=== PATIENT | male | born 1945 | race African-American/Black ===

== ENCOUNTER 2017-03-08 18:20 | Inpatient (IN) | payer MEDICARE, MEDICAID ==
[~2017-03-08] VITALS: Ht 170.2 cm; Wt 104.0 kg
[2017-03-08 19:05] LABS: BASO % 1 % (0-3); EOS # 0.2 x10^3/uL (0.0-0.7); EOS % 5 % (0-3); LYMPH % 20 % (24-48); MEAN CORPUSCULAR HEMOGLOBIN 32 pg (25-35); MEAN CORPUSCULAR HGB CONC 33 g/dL (31-37); MEAN CORPUSCULAR VOLUME 95 fL (79-100); MONO # 0.5 x10^3/uL (0.0-1.1); MONO % 10 % (0-9); NEUT # 3.4 x10^3uL (1.8-7.7); NEUT % 65 % (31-73); PLATELET COUNT 217 x10^3/uL (140-400); RED BLOOD COUNT 5.07 x10^6/uL (4.30-5.70); RED CELL DISTRIBUTION WIDTH 15.8 % (11.5-14.5); WHITE BLOOD COUNT 5.2 x10^3/uL (4.0-11.0)
[2017-03-08 19:12] LABS: ALBUMIN 3.9 g/dL (3.4-5.0); ALBUMIN/GLOBULIN RATIO 1.2 (1.0-1.7); CALCIUM 9.1 mg/dL (8.5-10.1); GFR 89.6; MAGNESIUM 2.1 mg/dL (1.8-2.4); TOTAL BILIRUBIN 0.3 mg/dL (0.2-1.0); TOTAL PROTEIN 7.2 g/dL (6.4-8.2)
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
[2017-03-08 20:07] LABS: BILIRUBIN,URINE NEG (NEG); CLARITY,URINE CLEAR; COLOR,URINE YELLOW; GLUCOSE,URINE NEG (NEG); NITRITE,URINE NEG (NEG); UROBILINOGEN,URINE 0.2 mg/dL (0.2 mg/dL)
[2017-03-08 20:08] LABS: BACTERIA,URINE 0 /HPF (0-FEW); SQUAMOUS EPITHELIAL CELL,UR FEW /LPF
[2017-03-08] MEDS ORDERED: ACETAMINOPHEN 325 MG TABLET PO PRN (21:45)
[2017-03-08] MEDS ORDERED: METHYL SALICYLATE/MENTHOL TOPICAL OINTMENT 29GM TUBE. TP PRN (21:45)
[2017-03-08] MEDS ORDERED: MAG HYDROX/AL HYDROX/SIMETH 30 ML ORAL.SUSP PO PRN (21:45)
[2017-03-08] MEDS ORDERED: MAGNESIUM HYDROXIDE 2,400 MG/30 ML ORAL.SUSP. PO PRN (21:45)
[2017-03-08 22:04] VITALS: BP 150/74
[2017-03-08] MEDS ORDERED: LEVE500T6 PO (22:21)
[2017-03-08] MEDS ORDERED: INSU100I13 SQ (22:21)
[2017-03-08] MEDS ORDERED: METO25TA4 PO (22:21)
[2017-03-08] MEDS ORDERED: MULT-460 PO (22:21)
[2017-03-08] MEDS ORDERED: BUPR100T8 PO (22:21)
[2017-03-08] MEDS ORDERED: OMEP20CA9 PO (22:21)
[2017-03-08] MEDS ORDERED: BUSP5TAB PO (22:21)
[2017-03-08] MEDS ORDERED: CHOL10003 PO (22:21)
[2017-03-08] MEDS ORDERED: MODA100T2 PO (22:21)
[2017-03-08] MEDS ORDERED: FLUT16SP21 NS (22:21)
[2017-03-08] MEDS ORDERED: DOCU100C28 PO (22:21)
[2017-03-08] MEDS ORDERED: PRIM50TA PO (22:30)
[2017-03-08] MEDS ORDERED: OLAN2.5T3 PO (22:30)
[2017-03-08] MEDS ORDERED: polyethylene glycol PO (22:30)
[2017-03-08] MEDS ORDERED: SENN-79 PO (22:30)
[2017-03-08] MEDS: SENNOSIDES 8.6 MG TABLET PO SCH (23:23)
[2017-03-08] MEDS: busPIRone 5 MG TABLET. PO SCH (23:23)
[2017-03-08] MEDS: levETIRAcetam 500 MG TABLET PO SCH (23:23)
[2017-03-08] MEDS: OLANZapine 2.5 MG TABLET PO SCH (23:23)
[2017-03-08] MEDS: METOPROLOL TART IMMED RELEASE 25 MG TABLET PO SCH (23:24)
[2017-03-08] MEDS: PRIMIDONE 50 MG TABLET PO SCH (23:24)
[2017-03-08] MEDS: FLUTICASONE 50MCG/NASAL SPRAY 16GM BOTTLE. NS SCH (23:24)
[2017-03-08] MEDS: DOCUSATE SODIUM 100 MG CAPSULE PO SCH (23:24)
[2017-03-08] MEDS: INSULIN DETEMIR 300 UNITS/3 ML INSULN.PEN. SQ SCH (23:28)
--- NOTE | 2017-03-09 00:15 | EKG ---
[address] [address] Test Date: 2017-03-08 Test Time: 18:50:12 Pat Name: ISABELLA HUTCHINSON Department: Room: [address] [place] [address] Gender: M [employer]: : 1945 Requested By: CHAR ROBISON Order Number: [id number] Reading MD: Boy Gutierrez Measurements Intervals [place] Rate: 79 P: 34 NM: 170 QRS: -117 QRSD: 90 T: 13 QT: 366 QTc: 421 Interpretive Statements SINUS RHYTHM ABNORMAL RIGHT SUPERIOR AXIS DEVIATION R-S TRANSITION ZONE IN V LEADS DISPLACED TO THE LEFT S1,S2,S3 PATTERN LEFT ANTERIOR FASCICULAR BLOCK Electronically Signed On 03-13-2017 14:30:33 CDT by Boy Gutierrez
--- NOTE | 2017-03-09 01:37 | ACF ---
Admission Criteria Forms PSYCHIATRIC DISORDERS Clinical Indications for Inpatient Care (Place 'X' for any and all applicable criteria): Ongoing inpatient care may be needed for 1 or more of the following(1)(2)(3)(4)( 6)(7)(8): [X]I. Danger to self or others not manageable at lower level of care. [ ]II. Grave disability (eg, inability to perform self care necessary at lower level of care) [ ]III. Agitation or inappropriate behavior interfering with care for primary condition (eg, attempting to discontinue lines or drains prematurely, unable to cooperate with respiratory care) [ ]IV. Severe disability or disorder indicated by ALL of the following: [ ]a) Severe behavioral health disorder-related symptoms or condition indicated by 1 or more of the following: [ ]i) Severe problem with cognition, memory, judgment, or impulse control [ ]ii) Severe clinical manifestations (eg, hallucinations, delusions, other acute psychotic symptoms, oj, extreme agitation or anxiety) [ ]b) Patient management at lower level of care is not feasible until acute intervention or modification is initiated. Extended stay beyond goal length of stay for the primary condition may be needed untilALLof the following are present(1)(2)(3)(4)7)07)(23): [ ]a) Danger to self or others is absent or manageable at lower level of care [ ]b) Behavior crisis management, including physical or chemical restraints, is required and is not available at a lower level of care. [ ]c) Behavioral symptoms (e.g., agitation, somnolence, inappropriate behavior) are present, and are not manageable at a lower level of care. [ ]d) Patient cannot understand follow-up treatment and crisis plan. [ ]e) Provider and supports are sufficiently available at lower level of care. [ ]f) Patient can participate (e.g., verify absence of plan for harm) and is in needed of monitoring. The original [facility] [employer] content created by [facility] [employer] has been revised. The portions of the content which have been revised are identified through the use of italic text, and [facility] [employer] has neither reviewed nor approved the modified material. All other unmodified content is copyright [facility]. Please see references footnoted in the original [facility] edition 2015 Admission Criteria Met?: Yes CLAU BERNAL Mar 09, 2017 01:37
[2017-03-09 06:20] VITALS: BP 113/70
[2017-03-09] MEDS: levETIRAcetam 500 MG TABLET PO SCH ×2 (09:50→19:38)
[2017-03-09] MEDS: busPIRone 5 MG TABLET. PO SCH ×2 (09:50→19:38)
[2017-03-09] MEDS: SENNOSIDES 8.6 MG TABLET PO SCH ×2 (09:50→19:45)
[2017-03-09] MEDS: PRIMIDONE 50 MG TABLET PO SCH ×2 (09:50→19:45)
[2017-03-09] MEDS: DOCUSATE SODIUM 100 MG CAPSULE PO SCH ×2 (09:50→19:38)
[2017-03-09] MEDS: OLANZapine 2.5 MG TABLET PO SCH ×2 (09:51→19:38)
[2017-03-09] MEDS: METOPROLOL TART IMMED RELEASE 25 MG TABLET PO SCH ×2 (09:51→19:38)
[2017-03-09] MEDS: MULTIVITAMIN with MINERAL TABLET. PO SCH (10:13)
[2017-03-09] MEDS: buPROPion SR 100 MG TABLET.SA. PO SCH (10:13)
[2017-03-09] MEDS: CHOLECALCIFEROL (VITAMIN D3) 1,000 UNIT TABLET PO SCH (10:13)
[2017-03-09] MEDS: PANTOPRAZOLE 40 MG TABLET. PO SCH (10:13)
[2017-03-09] MEDS: MODAFINIL 100 MG TABLET PO SCH (10:13)
[2017-03-09] MEDS: POLYETHYLENE GLYCOL 3350 17 GM PACKET. PO SCH (10:14)
[2017-03-09] MEDS: FLUTICASONE 50MCG/NASAL SPRAY 16GM BOTTLE. NS SCH ×2 (10:17→19:44)
[2017-03-09 14:34] LABS: THYROID STIM HORMONE (TSH) 1.846 uIU/mL (0.358-3.740)
[2017-03-09 16:17] VITALS: BP 122/75
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
[2017-03-09] MEDS: INSULIN DETEMIR 300 UNITS/3 ML INSULN.PEN. SQ SCH (19:46)
[2017-03-09 20:08] LABS: T3 TOTAL 122 ng/dL (71-180); THYROXINE 6.6 ug/dL (4.5-12.0)
--- NOTE | 2017-03-09 20:45 | PDOC ---
Exam Trey Demential Exam: Trey Note: Please also refer to the separate dictated note~for this date of service dictated separately.~Patient seen individually. Discussed the patient with Nursing staff reviewed the chart.~Reviewed interim history and current functioning. Reviewed vital signs,~Labs/ Radiology~and current medications noted below. Continue current treatment with the changes noted in the dictated addendum note Assessment: Vital Signs: Vital Signs Date Time Temp Pulse Resp B/P (MAP) Pulse Ox O2 Delivery O2 Flow Rate FiO2 03/09/17 19:38 72 122/75 03/09/17 16:17 98.2 18 95 03/08/17 18:20 Room Air I&O Intake and Output 03/09/17 07:00 Output Total 2 ml Balance -2 ml Output Urine Total 2 ml # Bowel Movements 1 Labs: Laboratory Tests Test 03/08/17 22:35 03/09/17 07:52 03/09/17 11:58 03/09/17 16:33 Glucose (Fingerstick) 100 mg/dL (70-99) H 87 mg/dL (70-99) 147 mg/dL (70-99) H 137 mg/dL (70-99) H Test 03/09/17 18:59 Glucose (Fingerstick) 120 mg/dL (70-99) H Current Medications: Meds: Current Medications Acetaminophen (Tylenol) 650 mg PRN Q6HRS PRN PO PAIN / TEMP; Start 03/08/17 at 21:45 Multi-Ingredient Ointment (Analgesic [place]) 1 fabrizio PRN QID PRN TP MUSCLE PAIN; Start 03/08/17 at 21:45 Al Hydroxide/Mg Hydroxide (Mylanta Plus Xs) 15 ml PRN AFTMEALHC PRN PO DYSPEPSIA; Start 03/08/17 at 21:45 Magnesium Hydroxide (Milk Of Magnesia) 2,400 mg PRN QHS PRN PO CONSTIPATION; Start 03/08/17 at 21:45 Bupropion HCl (Wellbutrin Sr) 100 mg DAILY PO Last administered on 03/09/17 10 :13; Start 03/09/17 at 09:00 Buspirone HCl (Buspar) 5 mg BID PO Last administered on 03/09/17 19:38; Start 03/08/17 at 23:00 Olanzapine (ZyPREXA) 2.5 mg BID PO Last administered on 03/09/17 19:38; Start 03/08/17 at 23:00 Docusate Sodium (Colace) 100 mg BID PO Last administered on 03/09/17 19:38; Start 03/08/17 at 23:00 Fluticasone Propionate (Flonase) 1 spray BID NS Last administered on 03/09/17 19:44; Start 03/08/17 at 23:00 Levetiracetam (Keppra) 1,000 mg BID PO Last administered on 03/09/17 19:38; Start 03/08/17 at 23:00 Metoprolol Tartrate (Lopressor) 25 mg BID PO Last administered on 03/09/17 19: 38; Start 03/08/17 at 23:00 Primidone (Mysoline) 150 mg BID PO Last administered on 03/09/17 19:45; Start 03/08/17 at 23:00 Sennosides (Senna) 8.6 mg BID PO Last administered on 03/09/17 19:45; Start at 23:00 Insulin Detemir (Levemir) 5 units QHS SQ Last administered on 03/09/17 19:46; Start 03/08/17 at 23:00 Vitamin D (Vitamin D3) 1,000 unit DAILY PO Last administered on 03/09/17 10:13 ; Start 03/09/17 at 09:00 Modafinil (Provigil) 100 mg DAILY PO Last administered on 03/09/17 10:13; Start 03/09/17 at 09:00 Multivitamins/ Calcium (Thera-M Plus) 1 tab DAILY PO Last administered on 10:13; Start 03/09/17 at 09:00 Pantoprazole Sodium (Protonix) 40 mg DAILYAC PO Last administered on 03/09/17 10:13; Start 03/09/17 at 08:45 Polyethylene Glycol (miraLAX) 17 gm DAILY PO Last administered on 03/09/17 10: 14; Start 03/09/17 at 09:00 Active Scripts Active Reported Zyprexa (Olanzapine) 2.5 Mg Tablet 2.5 Mg PO BID Senna (Sennosides) 8.6 Mg Tablet 8.6 Mg PO BID Primidone 50 Mg Tablet 150 Mg PO BID [polyethylene glycol] 17 Gm PO DAILY Omeprazole 20 Mg Capsule.dr 20 Mg PO DAILY Multiple Vitamin (Multivitamin With Minerals) 1 Each Tablet 1 Tab PO DAILY Modafinil 100 Mg Tablet 100 Mg PO DAILY Metoprolol Tartrate 25 Mg Tablet 25 Mg PO BID Levetiracetam 500 Mg Tablet 1,000 Mg PO BID Lantus Solostar (Insulin Glargine,Hum.rec.anlog) 100 Unit/1 Ml Insuln.pen 5 Unit SQ HS Fluticasone Propionate Nasal [place] (Fluticasone Propionate) 16 Gm [place].susp 1 [place] NS BID Docusate Sodium 100 Mg Capsule 100 Mg PO BID Vitamin D3 (Cholecalciferol (Vitamin D3)) 1,000 Unit Tablet 1,000 Unit PO DAILY Buspirone Hcl 5 Mg Tablet 5 Mg PO BID Bupropion Hcl Sr (Bupropion Hcl) 100 Mg Tablet.er 100 Mg PO DAILY Diagnosis: Problems: (1) Dementia with behavioral disturbance AYAKA FERNANDEZ MD Mar 09, 2017 20:45
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
[2017-03-10 04:12] LABS: HEMOGLOBIN A1C 5.3 % (4.8-5.6)
[2017-03-10 06:06] VITALS: BP 127/72
[2017-03-10] MEDS: MODAFINIL 100 MG TABLET PO SCH (09:16)
[2017-03-10] MEDS: OLANZapine 2.5 MG TABLET PO SCH ×2 (09:16→19:50)
[2017-03-10] MEDS: buPROPion SR 100 MG TABLET.SA. PO SCH (09:16)
[2017-03-10] MEDS: POLYETHYLENE GLYCOL 3350 17 GM PACKET. PO SCH (09:16)
[2017-03-10] MEDS: SENNOSIDES 8.6 MG TABLET PO SCH ×2 (09:16→19:50)
[2017-03-10] MEDS: PRIMIDONE 50 MG TABLET PO SCH ×2 (09:16→19:49)
[2017-03-10] MEDS: MULTIVITAMIN with MINERAL TABLET. PO SCH (09:16)
[2017-03-10] MEDS: DOCUSATE SODIUM 100 MG CAPSULE PO SCH ×2 (09:16→20:04)
[2017-03-10] MEDS: levETIRAcetam 500 MG TABLET PO SCH ×2 (09:17→19:50)
[2017-03-10] MEDS: METOPROLOL TART IMMED RELEASE 25 MG TABLET PO SCH ×2 (09:17→19:50)
[2017-03-10] MEDS: busPIRone 5 MG TABLET. PO SCH ×2 (09:17→19:50)
[2017-03-10] MEDS: CHOLECALCIFEROL (VITAMIN D3) 1,000 UNIT TABLET PO SCH (09:17)
[2017-03-10] MEDS: PANTOPRAZOLE 40 MG TABLET. PO SCH (09:18)
[2017-03-10] MEDS: FLUTICASONE 50MCG/NASAL SPRAY 16GM BOTTLE. NS SCH ×2 (09:18→19:50)
--- NOTE | 2017-03-10 10:20 | PDOC ---
Exam Trey Demential Exam: Trey Note: Please also refer to the separate dictated note~for this date of service dictated separately.~Patient seen individually. Discussed the patient with Nursing staff reviewed the chart.~Reviewed interim history and current functioning. Reviewed vital signs,~Labs/ Radiology~and current medications noted below. Continue current treatment with the changes noted in the dictated addendum note Assessment: Vital Signs: Vital Signs Date Time Temp Pulse Resp B/P (MAP) Pulse Ox O2 Delivery O2 Flow Rate FiO2 03/10/17 09:17 80 127/72 03/10/17 06:06 98.6 20 94 03/08/17 18:20 Room Air I&O Intake and Output 03/10/17 06:59 Intake Total 360 ml Balance 360 ml Intake Oral 360 ml Labs: Laboratory Tests Test 03/09/17 11:58 03/09/17 16:33 03/09/17 18:59 03/10/17 07:09 Glucose (Fingerstick) 147 mg/dL (70-99) H 137 mg/dL (70-99) H 120 mg/dL (70-99) H 86 mg/dL (70-99) Current Medications: Meds: Current Medications Acetaminophen (Tylenol) 650 mg PRN Q6HRS PRN PO PAIN / TEMP; Start 03/08/17 at 21:45 Multi-Ingredient Ointment (Analgesic [place]) 1 fabrizio PRN QID PRN TP MUSCLE PAIN; Start 03/08/17 at 21:45 Al Hydroxide/Mg Hydroxide (Mylanta Plus Xs) 15 ml PRN AFTMEALHC PRN PO DYSPEPSIA; Start 03/08/17 at 21:45 Magnesium Hydroxide (Milk Of Magnesia) 2,400 mg PRN QHS PRN PO CONSTIPATION; Start 03/08/17 at 21:45 Bupropion HCl (Wellbutrin Sr) 100 mg DAILY PO Last administered on 03/10/17 09 :16; Start 03/09/17 at 09:00 Buspirone HCl (Buspar) 5 mg BID PO Last administered on 03/10/17 09:17; Start 03/08/17 at 23:00 Olanzapine (ZyPREXA) 2.5 mg BID PO Last administered on 03/10/17 09:16; Start 03/08/17 at 23:00 Docusate Sodium (Colace) 100 mg BID PO Last administered on 03/10/17 09:16; Start 03/08/17 at 23:00 Fluticasone Propionate (Flonase) 1 spray BID NS Last administered on 03/10/17 09:18; Start 03/08/17 at 23:00 Levetiracetam (Keppra) 1,000 mg BID PO Last administered on 03/10/17 09:17; Start 03/08/17 at 23:00 Metoprolol Tartrate (Lopressor) 25 mg BID PO Last administered on 03/10/17 09: 17; Start 03/08/17 at 23:00 Primidone (Mysoline) 150 mg BID PO Last administered on 03/10/17 09:16; Start 03/08/17 at 23:00 Sennosides (Senna) 8.6 mg BID PO Last administered on 03/10/17 09:16; Start at 23:00 Insulin Detemir (Levemir) 5 units QHS SQ Last administered on 03/09/17 19:46; Start 03/08/17 at 23:00 Vitamin D (Vitamin D3) 1,000 unit DAILY PO Last administered on 03/10/17 09:17 ; Start 03/09/17 at 09:00 Modafinil (Provigil) 100 mg DAILY PO Last administered on 03/10/17 09:16; Start 03/09/17 at 09:00 Multivitamins/ Calcium (Thera-M Plus) 1 tab DAILY PO Last administered on 09:16; Start 03/09/17 at 09:00 Pantoprazole Sodium (Protonix) 40 mg DAILYAC PO Last administered on 03/10/17 09:18; Start 03/09/17 at 08:45 Polyethylene Glycol (miraLAX) 17 gm DAILY PO Last administered on 03/10/17 09: 16; Start 03/09/17 at 09:00 Active Scripts Active Reported Zyprexa (Olanzapine) 2.5 Mg Tablet 2.5 Mg PO BID Senna (Sennosides) 8.6 Mg Tablet 8.6 Mg PO BID Primidone 50 Mg Tablet 150 Mg PO BID [polyethylene glycol] 17 Gm PO DAILY Omeprazole 20 Mg Capsule.dr 20 Mg PO DAILY Multiple Vitamin (Multivitamin With Minerals) 1 Each Tablet 1 Tab PO DAILY Modafinil 100 Mg Tablet 100 Mg PO DAILY Metoprolol Tartrate 25 Mg Tablet 25 Mg PO BID Levetiracetam 500 Mg Tablet 1,000 Mg PO BID Lantus Solostar (Insulin Glargine,Hum.rec.anlog) 100 Unit/1 Ml Insuln.pen 5 Unit SQ HS Fluticasone Propionate Nasal [place] (Fluticasone Propionate) 16 Gm [place].susp 1 [place] NS BID Docusate Sodium 100 Mg Capsule 100 Mg PO BID Vitamin D3 (Cholecalciferol (Vitamin D3)) 1,000 Unit Tablet 1,000 Unit PO DAILY Buspirone Hcl 5 Mg Tablet 5 Mg PO BID Bupropion Hcl Sr (Bupropion Hcl) 100 Mg Tablet.er 100 Mg PO DAILY Diagnosis: Problems: (1) Anxiety disorder (2) Bipolar affective disorder, mixed (3) Psychosis, atypical (4) Schizoaffective disorder (5) Impulse control disorder AYAKA FERNANDEZ MD Mar 10, 2017 10:20
[2017-03-10 15:57] VITALS: BP 114/73
--- NOTE | 2017-03-10 19:57 | PDOC ---
Exam Trey Demential Exam: Trey Note: Please also refer to the separate dictated note~for this date of service dictated separately.~Patient seen individually. Discussed the patient with Nursing staff reviewed the chart.~Reviewed interim history and current functioning. Reviewed vital signs,~Labs/ Radiology~and current medications noted below. Continue current treatment with the changes noted in the dictated addendum note Assessment: Vital Signs: Vital Signs Date Time Temp Pulse Resp B/P (MAP) Pulse Ox O2 Delivery O2 Flow Rate FiO2 03/10/17 19:50 82 114/73 03/10/17 15:57 97.5 19 96 03/08/17 18:20 Room Air I&O Intake and Output 03/10/17 06:59 Intake Total 360 ml Balance 360 ml Intake Oral 360 ml Labs: Laboratory Tests Test 03/10/17 07:09 03/10/17 19:08 Glucose (Fingerstick) 86 mg/dL (70-99) 157 mg/dL (70-99) H Current Medications: Meds: Current Medications Acetaminophen (Tylenol) 650 mg PRN Q6HRS PRN PO PAIN / TEMP; Start 03/08/17 at 21:45 Multi-Ingredient Ointment (Analgesic [place]) 1 fabrizio PRN QID PRN TP MUSCLE PAIN; Start 03/08/17 at 21:45 Al Hydroxide/Mg Hydroxide (Mylanta Plus Xs) 15 ml PRN AFTMEALHC PRN PO DYSPEPSIA; Start 03/08/17 at 21:45 Magnesium Hydroxide (Milk Of Magnesia) 2,400 mg PRN QHS PRN PO CONSTIPATION; Start 03/08/17 at 21:45 Bupropion HCl (Wellbutrin Sr) 100 mg DAILY PO Last administered on 03/10/17 09 :16; Start 03/09/17 at 09:00 Buspirone HCl (Buspar) 5 mg BID PO Last administered on 03/10/17 19:50; Start 03/08/17 at 23:00 Olanzapine (ZyPREXA) 2.5 mg BID PO Last administered on 03/10/17 19:50; Start 03/08/17 at 23:00 Docusate Sodium (Colace) 100 mg BID PO Last administered on 03/10/17 09:16; Start 03/08/17 at 23:00 Fluticasone Propionate (Flonase) 1 spray BID NS Last administered on 03/10/17 19:50; Start 03/08/17 at 23:00 Levetiracetam (Keppra) 1,000 mg BID PO Last administered on 03/10/17 19:50; Start 03/08/17 at 23:00 Metoprolol Tartrate (Lopressor) 25 mg BID PO Last administered on 03/10/17 19: 50; Start 03/08/17 at 23:00 Primidone (Mysoline) 150 mg BID PO Last administered on 03/10/17 19:49; Start 03/08/17 at 23:00 Sennosides (Senna) 8.6 mg BID PO Last administered on 03/10/17 19:50; Start at 23:00 Insulin Detemir (Levemir) 5 units QHS SQ Last administered on 03/09/17 19:46; Start 03/08/17 at 23:00 Vitamin D (Vitamin D3) 1,000 unit DAILY PO Last administered on 03/10/17 09:17 ; Start 03/09/17 at 09:00 Modafinil (Provigil) 100 mg DAILY PO Last administered on 03/10/17 09:16; Start 03/09/17 at 09:00 Multivitamins/ Calcium (Thera-M Plus) 1 tab DAILY PO Last administered on 09:16; Start 03/09/17 at 09:00 Pantoprazole Sodium (Protonix) 40 mg DAILYAC PO Last administered on 03/10/17 09:18; Start 03/09/17 at 08:45 Polyethylene Glycol (miraLAX) 17 gm DAILY PO Last administered on 03/10/17 09: 16; Start 03/09/17 at 09:00 Active Scripts Active Reported Zyprexa (Olanzapine) 2.5 Mg Tablet 2.5 Mg PO BID Senna (Sennosides) 8.6 Mg Tablet 8.6 Mg PO BID Primidone 50 Mg Tablet 150 Mg PO BID [polyethylene glycol] 17 Gm PO DAILY Omeprazole 20 Mg Capsule.dr 20 Mg PO DAILY Multiple Vitamin (Multivitamin With Minerals) 1 Each Tablet 1 Tab PO DAILY Modafinil 100 Mg Tablet 100 Mg PO DAILY Metoprolol Tartrate 25 Mg Tablet 25 Mg PO BID Levetiracetam 500 Mg Tablet 1,000 Mg PO BID Lantus Solostar (Insulin Glargine,Hum.rec.anlog) 100 Unit/1 Ml Insuln.pen 5 Unit SQ HS Fluticasone Propionate Nasal [place] (Fluticasone Propionate) 16 Gm [place].susp 1 [place] NS BID Docusate Sodium 100 Mg Capsule 100 Mg PO BID Vitamin D3 (Cholecalciferol (Vitamin D3)) 1,000 Unit Tablet 1,000 Unit PO DAILY Buspirone Hcl 5 Mg Tablet 5 Mg PO BID Bupropion Hcl Sr (Bupropion Hcl) 100 Mg Tablet.er 100 Mg PO DAILY Diagnosis: Problems: (1) Dementia with behavioral disturbance (2) Anxiety disorder (3) Impulse control disorder (4) Psychosis, atypical (5) Schizoaffective disorder (6) Bipolar affective disorder, mixed AYAKA FERNANDEZ MD Mar 10, 2017 19:57
[2017-03-10] MEDS: INSULIN DETEMIR 300 UNITS/3 ML INSULN.PEN. SQ SCH (20:04)
--- NOTE | 2017-03-11 04:56 | PN ---
DATE: 03/10/2017 PSYCHIATRIC PROGRESS NOTE This note covers elements not covered in my initial note of 03/10. SUBJECTIVE: The patient was seen individually in the morning of 03/10. The patient seems much more awake and alert, less sedated as compared to yesterday. He was up at 5:00 a.m. attending groups, but otherwise compliant. REVIEW OF SYSTEMS: No CV, , pulmonary, eye, ENT system symptoms on review. Reliability poor. Gait unsteady in the wheelchair. MENTAL STATUS EXAM: Oriented to himself. Insight, judgment, recent and remote memory, attention, concentration, fund of knowledge poor, consistent with his diagnosis. He remains somewhat anxious. LABORATORY DATA: Reviewed. IMPRESSION: Bipolar 1 disorder, mixed with psychotic features, in partial remission, anxiety disorder, unspecified intellectual disability, major neurocognitive disorder, traumatic with depression, delusions. PLAN: Increase BuSpar from 5 mg b.i.d. to 5 mg 4 times a day, continue Zyprexa 2.5 mg b.i.d., Wellbutrin-SR 100 mg daily. We may consider starting Depakote as a mood stabilizer. Adjust further as clinically indicated. Reviewed drug interactions. Risk and benefit ratio favors no further changes as of now. AYAKA FERNANDEZ MD DR: CAMERON/varun JOB#: [id number] / [id number]
[2017-03-11 06:08] VITALS: BP 114/74
[2017-03-11] MEDS: FLUTICASONE 50MCG/NASAL SPRAY 16GM BOTTLE. NS SCH ×2 (09:04→19:51)
[2017-03-11] MEDS: busPIRone 5 MG TABLET. PO SCH ×2 (09:04→19:52)
[2017-03-11] MEDS: PANTOPRAZOLE 40 MG TABLET. PO SCH (09:04)
[2017-03-11] MEDS: DOCUSATE SODIUM 100 MG CAPSULE PO SCH ×2 (09:04→19:52)
[2017-03-11] MEDS: levETIRAcetam 500 MG TABLET PO SCH ×2 (09:05→19:51)
[2017-03-11] MEDS: METOPROLOL TART IMMED RELEASE 25 MG TABLET PO SCH ×2 (09:05→19:51)
[2017-03-11] MEDS: POLYETHYLENE GLYCOL 3350 17 GM PACKET. PO SCH (09:05)
[2017-03-11] MEDS: PRIMIDONE 50 MG TABLET PO SCH ×2 (09:06→19:52)
[2017-03-11] MEDS: MODAFINIL 100 MG TABLET PO SCH (09:07)
[2017-03-11] MEDS: MULTIVITAMIN with MINERAL TABLET. PO SCH (09:07)
[2017-03-11] MEDS: SENNOSIDES 8.6 MG TABLET PO SCH ×2 (09:07→19:52)
[2017-03-11] MEDS: CHOLECALCIFEROL (VITAMIN D3) 1,000 UNIT TABLET PO SCH (09:08)
[2017-03-11] MEDS: buPROPion SR 100 MG TABLET.SA. PO SCH (09:13)
[2017-03-11] MEDS: OLANZapine 2.5 MG TABLET PO SCH ×2 (09:13→19:52)
[2017-03-11 15:44] VITALS: BP 120/72
[2017-03-11] MEDS: INSULIN DETEMIR 300 UNITS/3 ML INSULN.PEN. SQ SCH (19:55)
[2017-03-12 06:42] VITALS: BP 118/70
[2017-03-12] MEDS: PANTOPRAZOLE 40 MG TABLET. PO SCH (07:49)
[2017-03-12] MEDS: FLUTICASONE 50MCG/NASAL SPRAY 16GM BOTTLE. NS SCH ×2 (07:53→20:05)
[2017-03-12] MEDS: busPIRone 5 MG TABLET. PO SCH ×2 (07:53→20:00)
[2017-03-12] MEDS: levETIRAcetam 500 MG TABLET PO SCH ×2 (07:53→20:00)
[2017-03-12] MEDS: DOCUSATE SODIUM 100 MG CAPSULE PO SCH ×2 (07:53→20:00)
[2017-03-12] MEDS: POLYETHYLENE GLYCOL 3350 17 GM PACKET. PO SCH (07:55)
[2017-03-12] MEDS: PRIMIDONE 50 MG TABLET PO SCH ×2 (07:55→20:00)
[2017-03-12] MEDS: METOPROLOL TART IMMED RELEASE 25 MG TABLET PO SCH ×2 (07:55→20:00)
[2017-03-12] MEDS: MODAFINIL 100 MG TABLET PO SCH (07:57)
[2017-03-12] MEDS: MULTIVITAMIN with MINERAL TABLET. PO SCH (07:57)
[2017-03-12] MEDS: CHOLECALCIFEROL (VITAMIN D3) 1,000 UNIT TABLET PO SCH (07:57)
[2017-03-12] MEDS: SENNOSIDES 8.6 MG TABLET PO SCH ×2 (07:57→20:00)
[2017-03-12] MEDS: OLANZapine 2.5 MG TABLET PO SCH ×2 (07:57→20:00)
[2017-03-12] MEDS: buPROPion SR 100 MG TABLET.SA. PO SCH (07:57)
[2017-03-12 16:46] VITALS: BP 109/66
--- NOTE | 2017-03-12 19:50 | PDOC ---
Exam Trey Demential Exam: Trey Note: Please also refer to the separate dictated note~for this date of service dictated separately.~Patient seen individually. Discussed the patient with Nursing staff reviewed the chart.~Reviewed interim history and current functioning. Reviewed vital signs,~Labs/ Radiology~and current medications noted below. Continue current treatment with the changes noted in the dictated addendum note Assessment: Vital Signs: Vital Signs Date Time Temp Pulse Resp B/P (MAP) Pulse Ox O2 Delivery O2 Flow Rate FiO2 03/12/17 16:46 97.9 80 18 109/66 (80) 94 03/11/17 15:44 Room Air I&O Intake and Output 03/12/17 06:59 Intake Total 660 ml Balance 660 ml Intake Oral 660 ml Labs: Laboratory Tests Test 03/12/17 07:09 03/12/17 11:27 03/12/17 17:10 03/12/17 19:11 Glucose (Fingerstick) 105 mg/dL (70-99) H 154 mg/dL (70-99) H 128 mg/dL (70-99) H 116 mg/dL (70-99) H Current Medications: Meds: Current Medications Acetaminophen (Tylenol) 650 mg PRN Q6HRS PRN PO PAIN / TEMP; Start 03/08/17 at 21:45 Multi-Ingredient Ointment (Analgesic [place]) 1 fbarizio PRN QID PRN TP MUSCLE PAIN; Start 03/08/17 at 21:45 Al Hydroxide/Mg Hydroxide (Mylanta Plus Xs) 15 ml PRN AFTMEALHC PRN PO DYSPEPSIA; Start 03/08/17 at 21:45 Magnesium Hydroxide (Milk Of Magnesia) 2,400 mg PRN QHS PRN PO CONSTIPATION; Start 03/08/17 at 21:45 Bupropion HCl (Wellbutrin Sr) 100 mg DAILY PO Last administered on 03/12/17 07 :57; Start 03/09/17 at 09:00 Buspirone HCl (Buspar) 5 mg BID PO Last administered on 03/12/17 07:53; Start 03/08/17 at 23:00 Olanzapine (ZyPREXA) 2.5 mg BID PO Last administered on 03/12/17 07:57; Start 03/08/17 at 23:00 Docusate Sodium (Colace) 100 mg BID PO Last administered on 03/12/17 07:53; Start 03/08/17 at 23:00 Fluticasone Propionate (Flonase) 1 spray BID NS Last administered on 03/12/17 07:53; Start 03/08/17 at 23:00 Levetiracetam (Keppra) 1,000 mg BID PO Last administered on 03/12/17 07:53; Start 03/08/17 at 23:00 Metoprolol Tartrate (Lopressor) 25 mg BID PO Last administered on 03/12/17 07: 55; Start 03/08/17 at 23:00 Primidone (Mysoline) 150 mg BID PO Last administered on 03/12/17 07:55; Start 03/08/17 at 23:00 Sennosides (Senna) 8.6 mg BID PO Last administered on 03/12/17 07:57; Start at 23:00 Insulin Detemir (Levemir) 5 units QHS SQ Last administered on 03/11/17 19:55; Start 03/08/17 at 23:00; Stop 03/12/17 at 08:43; Status DC Vitamin D (Vitamin D3) 1,000 unit DAILY PO Last administered on 03/12/17 07:57 ; Start 03/09/17 at 09:00 Modafinil (Provigil) 100 mg DAILY PO Last administered on 03/12/17 07:57; Start 03/09/17 at 09:00 Multivitamins/ Calcium (Thera-M Plus) 1 tab DAILY PO Last administered on 07:57; Start 03/09/17 at 09:00 Pantoprazole Sodium (Protonix) 40 mg DAILYAC PO Last administered on 03/12/17 07:49; Start 03/09/17 at 08:45 Polyethylene Glycol (miraLAX) 17 gm DAILY PO Last administered on 03/12/17 07: 55; Start 03/09/17 at 09:00 Insulin Detemir (Levemir) 3 units QHS SQ ; Start 03/12/17 at 21:00 Active Scripts Active Reported Zyprexa (Olanzapine) 2.5 Mg Tablet 2.5 Mg PO BID Senna (Sennosides) 8.6 Mg Tablet 8.6 Mg PO BID Primidone 50 Mg Tablet 150 Mg PO BID [polyethylene glycol] 17 Gm PO DAILY Omeprazole 20 Mg Capsule.dr 20 Mg PO DAILY Multiple Vitamin (Multivitamin With Minerals) 1 Each Tablet 1 Tab PO DAILY Modafinil 100 Mg Tablet 100 Mg PO DAILY Metoprolol Tartrate 25 Mg Tablet 25 Mg PO BID Levetiracetam 500 Mg Tablet 1,000 Mg PO BID Lantus Solostar (Insulin Glargine,Hum.rec.anlog) 100 Unit/1 Ml Insuln.pen 5 Unit SQ HS Fluticasone Propionate Nasal [place] (Fluticasone Propionate) 16 Gm [place].susp 1 [place] NS BID Docusate Sodium 100 Mg Capsule 100 Mg PO BID Vitamin D3 (Cholecalciferol (Vitamin D3)) 1,000 Unit Tablet 1,000 Unit PO DAILY Buspirone Hcl 5 Mg Tablet 5 Mg PO BID Bupropion Hcl Sr (Bupropion Hcl) 100 Mg Tablet.er 100 Mg PO DAILY Diagnosis: Problems: (1) Dementia with behavioral disturbance (2) Anxiety disorder (3) Impulse control disorder (4) Psychosis, atypical (5) Schizoaffective disorder (6) Bipolar affective disorder, mixed AYAKA FERNANDEZ MD Mar 12, 2017 19:50
[2017-03-12] MEDS: INSULIN DETEMIR 300 UNITS/3 ML INSULN.PEN. SQ SCH (20:06)
[2017-03-13 06:06] VITALS: BP 115/72
[2017-03-13] MEDS: busPIRone 5 MG TABLET. PO SCH ×2 (09:17→20:07)
[2017-03-13] MEDS: DOCUSATE SODIUM 100 MG CAPSULE PO SCH ×2 (09:17→20:07)
[2017-03-13] MEDS: PANTOPRAZOLE 40 MG TABLET. PO SCH (09:17)
[2017-03-13] MEDS: levETIRAcetam 500 MG TABLET PO SCH ×2 (09:17→20:07)
[2017-03-13] MEDS: FLUTICASONE 50MCG/NASAL SPRAY 16GM BOTTLE. NS SCH ×2 (09:17→20:12)
[2017-03-13] MEDS: METOPROLOL TART IMMED RELEASE 25 MG TABLET PO SCH ×2 (09:17→20:14)
[2017-03-13] MEDS: OLANZapine 2.5 MG TABLET PO SCH ×2 (09:18→20:07)
[2017-03-13] MEDS: POLYETHYLENE GLYCOL 3350 17 GM PACKET. PO SCH (09:18)
[2017-03-13] MEDS: MULTIVITAMIN with MINERAL TABLET. PO SCH (09:18)
[2017-03-13] MEDS: MODAFINIL 100 MG TABLET PO SCH (09:18)
[2017-03-13] MEDS: SENNOSIDES 8.6 MG TABLET PO SCH ×2 (09:18→20:07)
[2017-03-13] MEDS: buPROPion SR 100 MG TABLET.SA. PO SCH (09:18)
[2017-03-13] MEDS: PRIMIDONE 50 MG TABLET PO SCH ×2 (09:18→20:07)
[2017-03-13] MEDS: CHOLECALCIFEROL (VITAMIN D3) 1,000 UNIT TABLET PO SCH (09:18)
[2017-03-13 15:51] VITALS: BP 108/72
--- NOTE | 2017-03-13 19:57 | PDOC ---
Exam Trey Demential Exam: Trey Note: Please also refer to the separate dictated note~for this date of service dictated separately.~Patient seen individually. Discussed the patient with Nursing staff reviewed the chart.~Reviewed interim history and current functioning. Reviewed vital signs,~Labs/ Radiology~and current medications noted below. Continue current treatment with the changes noted in the dictated addendum note Assessment: Vital Signs: Vital Signs Date Time Temp Pulse Resp B/P (MAP) Pulse Ox O2 Delivery O2 Flow Rate FiO2 03/13/17 15:51 97.4 68 20 108/72 (84) 97 03/11/17 15:44 Room Air I&O Intake and Output 03/13/17 07:00 Intake Total 780 ml Balance 780 ml Intake Oral 780 ml # Voids 1 Labs: Laboratory Tests Test 03/13/17 07:22 Glucose (Fingerstick) 97 mg/dL (70-99) Current Medications: Meds: Current Medications Acetaminophen (Tylenol) 650 mg PRN Q6HRS PRN PO PAIN / TEMP; Start 03/08/17 at 21:45 Multi-Ingredient Ointment (Analgesic [place]) 1 fabrizio PRN QID PRN TP MUSCLE PAIN; Start 03/08/17 at 21:45 Al Hydroxide/Mg Hydroxide (Mylanta Plus Xs) 15 ml PRN AFTMEALHC PRN PO DYSPEPSIA; Start 03/08/17 at 21:45 Magnesium Hydroxide (Milk Of Magnesia) 2,400 mg PRN QHS PRN PO CONSTIPATION; Start 03/08/17 at 21:45 Bupropion HCl (Wellbutrin Sr) 100 mg DAILY PO Last administered on 03/13/17 09 :18; Start 03/09/17 at 09:00 Buspirone HCl (Buspar) 5 mg BID PO Last administered on 03/13/17 09:17; Start 03/08/17 at 23:00 Olanzapine (ZyPREXA) 2.5 mg BID PO Last administered on 03/13/17 09:18; Start 03/08/17 at 23:00 Docusate Sodium (Colace) 100 mg BID PO Last administered on 03/13/17 09:17; Start 03/08/17 at 23:00 Fluticasone Propionate (Flonase) 1 spray BID NS Last administered on 03/13/17 09:17; Start 03/08/17 at 23:00 Levetiracetam (Keppra) 1,000 mg BID PO Last administered on 03/13/17 09:17; Start 03/08/17 at 23:00 Metoprolol Tartrate (Lopressor) 25 mg BID PO Last administered on 03/13/17 09: 17; Start 03/08/17 at 23:00 Primidone (Mysoline) 150 mg BID PO Last administered on 03/13/17 09:18; Start 03/08/17 at 23:00 Sennosides (Senna) 8.6 mg BID PO Last administered on 03/13/17 09:18; Start at 23:00 Insulin Detemir (Levemir) 5 units QHS SQ Last administered on 03/11/17 19:55; Start 03/08/17 at 23:00; Stop 03/12/17 at 08:43; Status DC Vitamin D (Vitamin D3) 1,000 unit DAILY PO Last administered on 03/13/17 09:18 ; Start 03/09/17 at 09:00 Modafinil (Provigil) 100 mg DAILY PO Last administered on 03/13/17 09:18; Start 03/09/17 at 09:00 Multivitamins/ Calcium (Thera-M Plus) 1 tab DAILY PO Last administered on 09:18; Start 03/09/17 at 09:00 Pantoprazole Sodium (Protonix) 40 mg DAILYAC PO Last administered on 03/13/17 09:17; Start 03/09/17 at 08:45 Polyethylene Glycol (miraLAX) 17 gm DAILY PO Last administered on 03/13/17 09: 18; Start 03/09/17 at 09:00 Insulin Detemir (Levemir) 3 units QHS SQ Last administered on 03/12/17 20:06; Start 03/12/17 at 21:00 Divalproex Sodium (Depakote Sprinkles) 125 mg TID PO ; Start 03/13/17 at 21:00 Active Scripts Active Reported Zyprexa (Olanzapine) 2.5 Mg Tablet 2.5 Mg PO BID Senna (Sennosides) 8.6 Mg Tablet 8.6 Mg PO BID Primidone 50 Mg Tablet 150 Mg PO BID [polyethylene glycol] 17 Gm PO DAILY Omeprazole 20 Mg Capsule.dr 20 Mg PO DAILY Multiple Vitamin (Multivitamin With Minerals) 1 Each Tablet 1 Tab PO DAILY Modafinil 100 Mg Tablet 100 Mg PO DAILY Metoprolol Tartrate 25 Mg Tablet 25 Mg PO BID Levetiracetam 500 Mg Tablet 1,000 Mg PO BID Lantus Solostar (Insulin Glargine,Hum.rec.anlog) 100 Unit/1 Ml Insuln.pen 5 Unit SQ HS Fluticasone Propionate Nasal [place] (Fluticasone Propionate) 16 Gm [place].susp 1 [place] NS BID Docusate Sodium 100 Mg Capsule 100 Mg PO BID Vitamin D3 (Cholecalciferol (Vitamin D3)) 1,000 Unit Tablet 1,000 Unit PO DAILY Buspirone Hcl 5 Mg Tablet 5 Mg PO BID Bupropion Hcl Sr (Bupropion Hcl) 100 Mg Tablet.er 100 Mg PO DAILY Diagnosis: Problems: (1) Dementia with behavioral disturbance (2) Anxiety disorder (3) Impulse control disorder (4) Psychosis, atypical (5) Schizoaffective disorder (6) Bipolar affective disorder, mixed AYAKA FERNANDEZ MD Mar 13, 2017 19:57
[2017-03-13] MEDS: DIVALPROEX 125 MG CAP.SPRINK PO SCH (20:13)
[2017-03-13] MEDS: INSULIN DETEMIR 300 UNITS/3 ML INSULN.PEN. SQ SCH (20:26)
[2017-03-14] MEDS: buPROPion SR 100 MG TABLET.SA. PO SCH (08:55)
[2017-03-14] MEDS: POLYETHYLENE GLYCOL 3350 17 GM PACKET. PO SCH (08:55)
[2017-03-14] MEDS: DIVALPROEX 125 MG CAP.SPRINK PO SCH ×3 (08:55→20:41)
[2017-03-14] MEDS: MODAFINIL 100 MG TABLET PO SCH (08:56)
[2017-03-14] MEDS: SENNOSIDES 8.6 MG TABLET PO SCH ×2 (08:56→20:42)
[2017-03-14] MEDS: DOCUSATE SODIUM 100 MG CAPSULE PO SCH ×2 (08:56→20:41)
[2017-03-14] MEDS: MULTIVITAMIN with MINERAL TABLET. PO SCH (08:56)
[2017-03-14] MEDS: CHOLECALCIFEROL (VITAMIN D3) 1,000 UNIT TABLET PO SCH (08:56)
[2017-03-14] MEDS: OLANZapine 2.5 MG TABLET PO SCH ×2 (08:56→20:40)
[2017-03-14] MEDS: levETIRAcetam 500 MG TABLET PO SCH ×2 (08:56→20:41)
[2017-03-14] MEDS: busPIRone 5 MG TABLET. PO SCH ×2 (08:56→20:40)
[2017-03-14] MEDS: PANTOPRAZOLE 40 MG TABLET. PO SCH (08:56)
[2017-03-14 09:00] VITALS: BP 113/70
[2017-03-14] MEDS: FLUTICASONE 50MCG/NASAL SPRAY 16GM BOTTLE. NS SCH ×2 (09:00→20:43)
[2017-03-14] MEDS: PRIMIDONE 50 MG TABLET PO SCH ×2 (09:00→20:42)
[2017-03-14] MEDS: METOPROLOL TART IMMED RELEASE 25 MG TABLET PO SCH ×2 (09:01→20:41)
--- NOTE | 2017-03-14 11:45 | PN ---
DATE: 03/12/2017 PSYCHIATRIC PROGRESS NOTE This is a late entry 03/12/2017, covers elements not covered in my initial note of 03/12/2017. SUBJECTIVE: I met with the patient the evening of 03/12/2017. Overall, the patient has been somewhat sedated, withdrawn, compliant with shower. REVIEW OF SYSTEMS: Ambulation impaired, in wheelchair. No CV, , pulmonary, eye system symptoms on review. Reliability poor. MENTAL STATUS EXAM: Oriented to himself, situation at times. Speech is coherent, abstraction fair, computation impaired, language function intact, attention span short. Mood and affect at times somewhat labile. LABORATORY DATA: Reviewed. IMPRESSION: Unchanged from initial note. PLAN: Continue current psychotropics, review drug interactions. We will go ahead and add Depakote 125 mg 3 times a day. Follow labs level. Adjust as clinically indicated. We will stop the Depakote on 03/13/2017, maintain rest unchanged. MAN Maria Antonia FERNANDEZ MD DR: CAMERON/varun JOB#: [id number] / [id number]
[2017-03-14 15:57] VITALS: BP 121/76
--- NOTE | 2017-03-14 19:56 | PDOC ---
Exam Trey Demential Exam: Trey Note: Please also refer to the separate dictated note~for this date of service dictated separately.~Patient seen individually. Discussed the patient with Nursing staff reviewed the chart.~Reviewed interim history and current functioning. Reviewed vital signs,~Labs/ Radiology~and current medications noted below. Continue current treatment with the changes noted in the dictated addendum note Assessment: Vital Signs: Vital Signs Date Time Temp Pulse Resp B/P (MAP) Pulse Ox O2 Delivery O2 Flow Rate FiO2 03/14/17 15:57 97.8 69 19 121/76 (91) 95 03/11/17 15:44 Room Air I&O Intake and Output 03/15/17 07:00 Intake Total 840 ml Balance 840 ml Intake Oral 840 ml Labs: Laboratory Tests Test 03/13/17 20:24 03/14/17 07:20 03/14/17 11:16 03/14/17 19:13 Glucose (Fingerstick) 111 mg/dL (70-99) H 102 mg/dL (70-99) H 191 mg/dL (70-99) H 152 mg/dL (70-99) H Current Medications: Meds: Current Medications Acetaminophen (Tylenol) 650 mg PRN Q6HRS PRN PO PAIN / TEMP; Start 03/08/17 at 21:45 Multi-Ingredient Ointment (Analgesic [place]) 1 fabriizo PRN QID PRN TP MUSCLE PAIN; Start 03/08/17 at 21:45 Al Hydroxide/Mg Hydroxide (Mylanta Plus Xs) 15 ml PRN AFTMEALHC PRN PO DYSPEPSIA; Start 03/08/17 at 21:45 Magnesium Hydroxide (Milk Of Magnesia) 2,400 mg PRN QHS PRN PO CONSTIPATION; Start 03/08/17 at 21:45 Bupropion HCl (Wellbutrin Sr) 100 mg DAILY PO Last administered on 03/14/17 08 :55; Start 03/09/17 at 09:00; Stop 03/14/17 at 18:22; Status DC Buspirone HCl (Buspar) 5 mg BID PO Last administered on 03/14/17 08:56; Start 03/08/17 at 23:00 Olanzapine (ZyPREXA) 2.5 mg BID PO Last administered on 03/14/17 08:56; Start 03/08/17 at 23:00 Docusate Sodium (Colace) 100 mg BID PO Last administered on 03/14/17 08:56; Start 03/08/17 at 23:00 Fluticasone Propionate (Flonase) 1 spray BID NS Last administered on 03/14/17 09:00; Start 03/08/17 at 23:00 Levetiracetam (Keppra) 1,000 mg BID PO Last administered on 03/14/17 08:56; Start 03/08/17 at 23:00 Metoprolol Tartrate (Lopressor) 25 mg BID PO Last administered on 03/14/17 09: 01; Start 03/08/17 at 23:00 Primidone (Mysoline) 150 mg BID PO Last administered on 03/14/17 09:00; Start 03/08/17 at 23:00 Sennosides (Senna) 8.6 mg BID PO Last administered on 03/14/17 08:56; Start at 23:00 Insulin Detemir (Levemir) 5 units QHS SQ Last administered on 03/11/17 19:55; Start 03/08/17 at 23:00; Stop 03/12/17 at 08:43; Status DC Vitamin D (Vitamin D3) 1,000 unit DAILY PO Last administered on 03/14/17 08:56 ; Start 03/09/17 at 09:00 Modafinil (Provigil) 100 mg DAILY PO Last administered on 03/14/17 08:56; Start 03/09/17 at 09:00 Multivitamins/ Calcium (Thera-M Plus) 1 tab DAILY PO Last administered on 08:56; Start 03/09/17 at 09:00 Pantoprazole Sodium (Protonix) 40 mg DAILYAC PO Last administered on 03/14/17 08:56; Start 03/09/17 at 08:45 Polyethylene Glycol (miraLAX) 17 gm DAILY PO Last administered on 03/14/17 08: 55; Start 03/09/17 at 09:00 Insulin Detemir (Levemir) 3 units QHS SQ Last administered on 03/13/17 20:26; Start 03/12/17 at 21:00 Divalproex Sodium (Depakote Sprinkles) 125 mg TID PO Last administered on t 17:14; Start 03/13/17 at 21:00 Bupropion HCl (Wellbutrin Xl) 150 mg DAILY PO ; Start 03/15/17 at 09:00 Active Scripts Active Reported Zyprexa (Olanzapine) 2.5 Mg Tablet 2.5 Mg PO BID Senna (Sennosides) 8.6 Mg Tablet 8.6 Mg PO BID Primidone 50 Mg Tablet 150 Mg PO BID [polyethylene glycol] 17 Gm PO DAILY Omeprazole 20 Mg Capsule.dr 20 Mg PO DAILY Multiple Vitamin (Multivitamin With Minerals) 1 Each Tablet 1 Tab PO DAILY Modafinil 100 Mg Tablet 100 Mg PO DAILY Metoprolol Tartrate 25 Mg Tablet 25 Mg PO BID Levetiracetam 500 Mg Tablet 1,000 Mg PO BID Lantus Solostar (Insulin Glargine,Hum.rec.anlog) 100 Unit/1 Ml Insuln.pen 5 Unit SQ HS Fluticasone Propionate Nasal [place] (Fluticasone Propionate) 16 Gm [place].susp 1 [place] NS BID Docusate Sodium 100 Mg Capsule 100 Mg PO BID Vitamin D3 (Cholecalciferol (Vitamin D3)) 1,000 Unit Tablet 1,000 Unit PO DAILY Buspirone Hcl 5 Mg Tablet 5 Mg PO BID Bupropion Hcl Sr (Bupropion Hcl) 100 Mg Tablet.er 100 Mg PO DAILY Diagnosis: Problems: (1) Dementia with behavioral disturbance (2) Anxiety disorder (3) Impulse control disorder (4) Psychosis, atypical (5) Schizoaffective disorder (6) Bipolar affective disorder, mixed AYAKA FERNANDEZ MD Mar 14, 2017 19:56
[2017-03-14] MEDS: INSULIN DETEMIR 300 UNITS/3 ML INSULN.PEN. SQ SCH (20:44)
--- NOTE | 2017-03-15 02:04 | PN ---
DATE: 03/13/2017 This late entry 03/13/2017 covers elements not covered in my initial note of 03/13/2017. SUBJECTIVE: I met with the patient the evening of 03/13/2017. Overall, the patient has been less labile, less agitated, still has some mood lability. REVIEW OF SYSTEMS: Ambulation impaired, in a wheelchair. No CV, , pulmonary, eye, ENT system symptoms on review. Reliability poor. MENTAL STATUS EXAM: Oriented to himself. Insight, judgment, recent and remote memory, attention, concentration, fund of knowledge poor, consistent with his diagnosis mentioned in my initial note. IMPRESSION: Bipolar 1 disorder, mixed with psychotic features, intellectual disability, major neurocognitive disorder, traumatic with delusion, depression. Rest unchanged. PLAN: Continue current psychotropics, Wellbutrin, BuSpar, Zyprexa along with Depakote. Follow labs level on the Depakote. On 03/16/2017, adjust to reach a therapeutic level. Reviewed drug interactions, risk/benefit ratio favors no further change. MAN Maria Antonia FERNANDEZ MD DR: CAMERON/varun JOB#: [id number] / [id number]
[2017-03-15 06:08] VITALS: BP 103/63
[2017-03-15] MEDS: DOCUSATE SODIUM 100 MG CAPSULE PO SCH ×2 (08:06→21:23)
[2017-03-15] MEDS: CHOLECALCIFEROL (VITAMIN D3) 1,000 UNIT TABLET PO SCH (08:06)
[2017-03-15] MEDS: levETIRAcetam 500 MG TABLET PO SCH ×2 (08:06→21:24)
[2017-03-15] MEDS: DIVALPROEX 125 MG CAP.SPRINK PO SCH ×3 (08:06→21:23)
[2017-03-15] MEDS: POLYETHYLENE GLYCOL 3350 17 GM PACKET. PO SCH (08:06)
[2017-03-15] MEDS: SENNOSIDES 8.6 MG TABLET PO SCH ×2 (08:06→21:23)
[2017-03-15] MEDS: busPIRone 5 MG TABLET. PO SCH ×2 (08:07→21:23)
[2017-03-15] MEDS: OLANZapine 2.5 MG TABLET PO SCH ×2 (08:07→21:23)
[2017-03-15] MEDS: MODAFINIL 100 MG TABLET PO SCH (08:07)
[2017-03-15] MEDS: PRIMIDONE 50 MG TABLET PO SCH ×2 (08:07→21:23)
[2017-03-15] MEDS: PANTOPRAZOLE 40 MG TABLET. PO SCH (08:07)
[2017-03-15] MEDS: MULTIVITAMIN with MINERAL TABLET. PO SCH (08:07)
[2017-03-15] MEDS: METOPROLOL TART IMMED RELEASE 25 MG TABLET PO SCH ×2 (08:08→21:23)
[2017-03-15] MEDS: buPROPion XL 150 MG TAB.ER.24H PO SCH (08:09)
[2017-03-15] MEDS: FLUTICASONE 50MCG/NASAL SPRAY 16GM BOTTLE. NS SCH ×2 (08:09→21:25)
[2017-03-15 16:18] VITALS: BP 119/70
--- NOTE | 2017-03-15 20:04 | PDOC ---
Exam Trey Demential Exam: Trey Note: Please also refer to the separate dictated note~for this date of service dictated separately.~Patient seen individually. Discussed the patient with Nursing staff reviewed the chart.~Reviewed interim history and current functioning. Reviewed vital signs,~Labs/ Radiology~and current medications noted below. Continue current treatment with the changes noted in the dictated addendum note Assessment: Vital Signs: Vital Signs Date Time Temp Pulse Resp B/P (MAP) Pulse Ox O2 Delivery O2 Flow Rate FiO2 03/15/17 16:18 98.2 93 18 119/70 (86) 96 03/11/17 15:44 Room Air I&O Intake and Output 03/16/17 07:00 Intake Total 960 ml Balance 960 ml Intake Oral 960 ml Labs: Laboratory Tests Test 03/15/17 07:17 03/15/17 19:11 Glucose (Fingerstick) 96 mg/dL (70-99) 119 mg/dL (70-99) H Current Medications: Meds: Current Medications Acetaminophen (Tylenol) 650 mg PRN Q6HRS PRN PO PAIN / TEMP; Start 03/08/17 at 21:45 Multi-Ingredient Ointment (Analgesic [place]) 1 fabrizio PRN QID PRN TP MUSCLE PAIN; Start 03/08/17 at 21:45 Al Hydroxide/Mg Hydroxide (Mylanta Plus Xs) 15 ml PRN AFTMEALHC PRN PO DYSPEPSIA; Start 03/08/17 at 21:45 Magnesium Hydroxide (Milk Of Magnesia) 2,400 mg PRN QHS PRN PO CONSTIPATION; Start 03/08/17 at 21:45 Bupropion HCl (Wellbutrin Sr) 100 mg DAILY PO Last administered on 03/14/17 08 :55; Start 03/09/17 at 09:00; Stop 03/14/17 at 18:22; Status DC Buspirone HCl (Buspar) 5 mg BID PO Last administered on 03/15/17 08:07; Start 03/08/17 at 23:00 Olanzapine (ZyPREXA) 2.5 mg BID PO Last administered on 03/15/17 08:07; Start 03/08/17 at 23:00; Stop 03/15/17 at 13:12; Status DC Docusate Sodium (Colace) 100 mg BID PO Last administered on 03/15/17 08:06; Start 03/08/17 at 23:00 Fluticasone Propionate (Flonase) 1 spray BID NS Last administered on 03/15/17 08:09; Start 03/08/17 at 23:00 Levetiracetam (Keppra) 1,000 mg BID PO Last administered on 03/15/17 08:06; Start 03/08/17 at 23:00 Metoprolol Tartrate (Lopressor) 25 mg BID PO Last administered on 03/14/17 20: 41; Start 03/08/17 at 23:00 Primidone (Mysoline) 150 mg BID PO Last administered on 03/15/17 08:07; Start 03/08/17 at 23:00 Sennosides (Senna) 8.6 mg BID PO Last administered on 03/15/17 08:06; Start at 23:00 Insulin Detemir (Levemir) 5 units QHS SQ Last administered on 03/11/17 19:55; Start 03/08/17 at 23:00; Stop 03/12/17 at 08:43; Status DC Vitamin D (Vitamin D3) 1,000 unit DAILY PO Last administered on 03/15/17 08:06 ; Start 03/09/17 at 09:00 Modafinil (Provigil) 100 mg DAILY PO Last administered on 03/15/17 08:07; Start 03/09/17 at 09:00 Multivitamins/ Calcium (Thera-M Plus) 1 tab DAILY PO Last administered on 08:07; Start 03/09/17 at 09:00 Pantoprazole Sodium (Protonix) 40 mg DAILYAC PO Last administered on 03/15/17 08:07; Start 03/09/17 at 08:45 Polyethylene Glycol (miraLAX) 17 gm DAILY PO Last administered on 03/15/17 08: 06; Start 03/09/17 at 09:00 Insulin Detemir (Levemir) 3 units QHS SQ Last administered on 03/14/17 20:44; Start 03/12/17 at 21:00 Divalproex Sodium (Depakote Sprinkles) 125 mg TID PO Last administered on 8/30/ 17at 14:37; Start 03/13/17 at 21:00 Bupropion HCl (Wellbutrin Xl) 150 mg DAILY PO Last administered on 03/15/17t 08 :09; Start 03/15/17 at 09:00 Olanzapine (ZyPREXA) 2.5 mg QHS PO ; Start 03/15/17 at 21:00 Active Scripts Active Reported Zyprexa (Olanzapine) 2.5 Mg Tablet 2.5 Mg PO BID Senna (Sennosides) 8.6 Mg Tablet 8.6 Mg PO BID Primidone 50 Mg Tablet 150 Mg PO BID [polyethylene glycol] 17 Gm PO DAILY Omeprazole 20 Mg Capsule.dr 20 Mg PO DAILY Multiple Vitamin (Multivitamin With Minerals) 1 Each Tablet 1 Tab PO DAILY Modafinil 100 Mg Tablet 100 Mg PO DAILY Metoprolol Tartrate 25 Mg Tablet 25 Mg PO BID Levetiracetam 500 Mg Tablet 1,000 Mg PO BID Lantus Solostar (Insulin Glargine,Hum.rec.anlog) 100 Unit/1 Ml Insuln.pen 5 Unit SQ HS Fluticasone Propionate Nasal [place] (Fluticasone Propionate) 16 Gm [place].susp 1 [place] NS BID Docusate Sodium 100 Mg Capsule 100 Mg PO BID Vitamin D3 (Cholecalciferol (Vitamin D3)) 1,000 Unit Tablet 1,000 Unit PO DAILY Buspirone Hcl 5 Mg Tablet 5 Mg PO BID Bupropion Hcl Sr (Bupropion Hcl) 100 Mg Tablet.er 100 Mg PO DAILY Diagnosis: Problems: (1) Dementia with behavioral disturbance (2) Anxiety disorder (3) Impulse control disorder (4) Psychosis, atypical (5) Schizoaffective disorder (6) Bipolar affective disorder, mixed AYAKA FERNANDEZ MD Mar 15, 2017 20:04
[2017-03-15] MEDS: INSULIN DETEMIR 300 UNITS/3 ML INSULN.PEN. SQ SCH (21:28)
--- NOTE | 2017-03-16 00:52 | PN ---
DATE: 03/14/2017 PSYCHIATRIC PROGRESS NOTE This is a late entry of 03/14/2017 covers elements not covered in my initial note. SUBJECTIVE: I met with the patient in the evening of 03/14/2017. Overall, the patient slept 9-1/2 hours previous evening, sedated during the day, spends much time in bed. REVIEW OF SYSTEMS: Ambulation impaired. No CV, , pulmonary, eye, ENT system symptoms on review. Reliability poor. MENTAL STATUS EXAM: Oriented to himself. Insight, judgment, recent and remote memory, attention, concentration, fund of knowledge poor, consistent with his diagnosis mentioned in my initial note. LABORATORY DATA: Reviewed. PLAN: Increase Wellbutrin-SR 100 mg a day to Wellbutrin-XL 150 mg a day to help with his mood, wakefulness energy, continue BuSpar 5 b.i.d., Zyprexa 2.5 b.i.d., Depakote Sprinkles 125 t.i.d. We will also go ahead and reduce the Zyprexa to 2.5 mg at bedtime to help with the daytime sedation and adjust further, but we will do this starting 03/15/2017. Reviewed drug interactions risk/benefit ratio favors no further change as of now. AYAKA FERNANDEZ MD DR: CAMERON/varun JOB#: [id number] / [id number]
[2017-03-16 06:15] VITALS: BP 117/83
[2017-03-16 07:57] LABS: BASO % 1 % (0-3); EOS # 0.3 x10^3/uL (0.0-0.7); EOS % 5 % (0-3); HEMATOCRIT 44.2 % (39.0-53.0); HEMOGLOBIN 15.7 g/dL (13.0-17.5); LYMPH # 1.2 x10^3/uL (1.0-4.8); LYMPH % 24 % (24-48); MEAN CORPUSCULAR HEMOGLOBIN 34 pg (25-35); MEAN CORPUSCULAR HGB CONC 35 g/dL (31-37); MEAN CORPUSCULAR VOLUME 95 fL (79-100); MONO # 0.5 x10^3/uL (0.0-1.1); MONO % 9 % (0-9); NEUT # 3.1 x10^3uL (1.8-7.7); NEUT % 61 % (31-73); PLATELET COUNT 200 x10^3/uL (140-400); RED BLOOD COUNT 4.65 x10^6/uL (4.30-5.70); RED CELL DISTRIBUTION WIDTH 15.4 % (11.5-14.5); WHITE BLOOD COUNT 5.1 x10^3/uL (4.0-11.0)
[2017-03-16] MEDS: PANTOPRAZOLE 40 MG TABLET. PO SCH (08:04)
[2017-03-16] MEDS: DIVALPROEX 125 MG CAP.SPRINK PO SCH (08:04)
[2017-03-16] MEDS: buPROPion XL 150 MG TAB.ER.24H PO SCH (08:04)
[2017-03-16] MEDS: SENNOSIDES 8.6 MG TABLET PO SCH ×2 (08:04→20:33)
[2017-03-16] MEDS: MODAFINIL 100 MG TABLET PO SCH (08:04)
[2017-03-16] MEDS: MULTIVITAMIN with MINERAL TABLET. PO SCH (08:05)
[2017-03-16] MEDS: busPIRone 5 MG TABLET. PO SCH ×2 (08:05→20:33)
[2017-03-16] MEDS: METOPROLOL TART IMMED RELEASE 25 MG TABLET PO SCH ×2 (08:05→20:33)
[2017-03-16] MEDS: PRIMIDONE 50 MG TABLET PO SCH ×2 (08:05→20:33)
[2017-03-16] MEDS: CHOLECALCIFEROL (VITAMIN D3) 1,000 UNIT TABLET PO SCH (08:05)
[2017-03-16] MEDS: levETIRAcetam 500 MG TABLET PO SCH ×2 (08:05→20:33)
[2017-03-16] MEDS: DOCUSATE SODIUM 100 MG CAPSULE PO SCH ×2 (08:05→20:34)
[2017-03-16] MEDS: POLYETHYLENE GLYCOL 3350 17 GM PACKET. PO SCH (08:06)
[2017-03-16] MEDS: FLUTICASONE 50MCG/NASAL SPRAY 16GM BOTTLE. NS SCH ×2 (08:06→20:32)
[2017-03-16 08:17] LABS: ALBUMIN 3.8 g/dL (3.4-5.0); ALBUMIN/GLOBULIN RATIO 1.1 (1.0-1.7); ALK PHOS 92 U/L (46-116); ALT (SGPT) 20 U/L (16-63); ANION GAP 2 (6-14); AST (SGOT) 10 U/L (15-37); BLOOD UREA NITROGEN 13 mg/dL (8-26); BUN/CREATININE RATIO 14 (6-20); CALCIUM 9.5 mg/dL (8.5-10.1); CARBON DIOXIDE 34 mmol/L (21-32); CHLORIDE 104 mmol/L (98-107); CREATININE 0.9 mg/dL (0.7-1.3); GFR 101.2; GLUCOSE 87 mg/dL (70-99); POTASSIUM 4.3 mmol/L (3.5-5.1); SODIUM 140 mmol/L (136-145); TOTAL BILIRUBIN 0.3 mg/dL (0.2-1.0); TOTAL PROTEIN 7.2 g/dL (6.4-8.2)
[2017-03-16 08:19] LABS: VAL ACID 15 mcg/mL (50-100)
[2017-03-16 16:20] VITALS: BP 117/80
--- NOTE | 2017-03-16 20:02 | PDOC ---
Exam Trey Demential Exam: Trey Note: Please also refer to the separate dictated note~for this date of service dictated separately.~Patient seen individually. Discussed the patient with Nursing staff reviewed the chart.~Reviewed interim history and current functioning. Reviewed vital signs,~Labs/ Radiology~and current medications noted below. Continue current treatment with the changes noted in the dictated addendum note Assessment: Vital Signs: Vital Signs Date Time Temp Pulse Resp B/P (MAP) Pulse Ox O2 Delivery O2 Flow Rate FiO2 03/16/17 16:20 98.1 76 20 117/80 (92) 96 03/11/17 15:44 Room Air I&O Intake and Output 03/17/17 06:59 Intake Total 960 ml Balance 960 ml Intake Oral 960 ml Labs: Laboratory Tests Test 03/16/17 06:58 03/16/17 07:31 03/16/17 19:13 White Blood Count 5.1 x10^3/uL (4.0-11.0) Red Blood Count 4.65 x10^6/uL (4.30-5.70) Hemoglobin 15.7 g/dL (13.0-17.5) Hematocrit 44.2 % (39.0-53.0) Mean Corpuscular Volume 95 fL (79-100) Mean Corpuscular Hemoglobin 34 pg (25-35) Mean Corpuscular Hemoglobin Concent 35 g/dL (31-37) Red Cell Distribution Width 15.4 % (11.5-14.5) H Platelet Count 200 x10^3/uL (140-400) Neutrophils (%) (Auto) 61 % (31-73) Lymphocytes (%) (Auto) 24 % (24-48) Monocytes (%) (Auto) 9 % (0-9) Eosinophils (%) (Auto) 5 % (0-3) H Basophils (%) (Auto) 1 % (0-3) Neutrophils # (Auto) 3.1 x10^3uL (1.8-7.7) Lymphocytes # (Auto) 1.2 x10^3/uL (1.0-4.8) Monocytes # (Auto) 0.5 x10^3/uL (0.0-1.1) Eosinophils # (Auto) 0.3 x10^3/uL (0.0-0.7) Basophils # (Auto) 0.0 x10^3/uL (0.0-0.2) Sodium Level 140 mmol/L (136-145) Potassium Level 4.3 mmol/L (3.5-5.1) Chloride Level 104 mmol/L (98-107) Carbon Dioxide Level 34 mmol/L (21-32) H Anion Gap 2 (6-14) L Blood Urea Nitrogen 13 mg/dL (8-26) Creatinine 0.9 mg/dL (0.7-1.3) Estimated GFR (Cockcroft-Gault) 101.2 BUN/Creatinine Ratio 14 (6-20) Glucose Level 87 mg/dL (70-99) Calcium Level 9.5 mg/dL (8.5-10.1) Total Bilirubin 0.3 mg/dL (0.2-1.0) Aspartate Amino Transferase (AST) 10 U/L (15-37) L Alanine Aminotransferase (ALT) 20 U/L (16-63) Alkaline Phosphatase 92 U/L (46-116) Total Protein 7.2 g/dL (6.4-8.2) Albumin 3.8 g/dL (3.4-5.0) Albumin/Globulin Ratio 1.1 (1.0-1.7) Valproic Acid Level 15 mcg/mL (50-100) L Valproic Acid Last Dose Date 03/15/17 Valproic Acid Last Dose Time 2100 Glucose (Fingerstick) 87 mg/dL (70-99) 199 mg/dL (70-99) H Current Medications: Meds: Current Medications Acetaminophen (Tylenol) 650 mg PRN Q6HRS PRN PO PAIN / TEMP; Start 03/08/17 at 21:45 Multi-Ingredient Ointment (Analgesic [place]) 1 fabrizio PRN QID PRN TP MUSCLE PAIN; Start 03/08/17 at 21:45 Al Hydroxide/Mg Hydroxide (Mylanta Plus Xs) 15 ml PRN AFTMEALHC PRN PO DYSPEPSIA; Start 03/08/17 at 21:45 Magnesium Hydroxide (Milk Of Magnesia) 2,400 mg PRN QHS PRN PO CONSTIPATION; Start 03/08/17 at 21:45 Bupropion HCl (Wellbutrin Sr) 100 mg DAILY PO Last administered on 03/14/17t 08 :55; Start 03/09/17 at 09:00; Stop 03/14/17 at 18:22; Status DC Buspirone HCl (Buspar) 5 mg BID PO Last administered on 03/16/17 08:05; Start 03/08/17 at 23:00 Olanzapine (ZyPREXA) 2.5 mg BID PO Last administered on 03/15/17 08:07; Start 03/08/17 at 23:00; Stop 03/15/17 at 13:12; Status DC Docusate Sodium (Colace) 100 mg BID PO Last administered on 03/16/17 08:05; Start 03/08/17 at 23:00 Fluticasone Propionate (Flonase) 1 spray BID NS Last administered on 03/16/17 08:06; Start 03/08/17 at 23:00 Levetiracetam (Keppra) 1,000 mg BID PO Last administered on 03/16/17 08:05; Start 03/08/17 at 23:00 Metoprolol Tartrate (Lopressor) 25 mg BID PO Last administered on 03/16/17 08: 05; Start 03/08/17 at 23:00 Primidone (Mysoline) 150 mg BID PO Last administered on 03/16/17 08:05; Start 03/08/17 at 23:00 Sennosides (Senna) 8.6 mg BID PO Last administered on 03/16/17 08:04; Start at 23:00 Insulin Detemir (Levemir) 5 units QHS SQ Last administered on 03/11/17 19:55; Start 03/08/17 at 23:00; Stop 03/12/17 at 08:43; Status DC Vitamin D (Vitamin D3) 1,000 unit DAILY PO Last administered on 03/16/17 08:05 ; Start 03/09/17 at 09:00 Modafinil (Provigil) 100 mg DAILY PO Last administered on 03/16/17 08:04; Start 03/09/17 at 09:00 Multivitamins/ Calcium (Thera-M Plus) 1 tab DAILY PO Last administered on 08:05; Start 03/09/17 at 09:00 Pantoprazole Sodium (Protonix) 40 mg DAILYAC PO Last administered on 03/16/17 08:04; Start 03/09/17 at 08:45 Polyethylene Glycol (miraLAX) 17 gm DAILY PO Last administered on 03/16/17 08: 06; Start 03/09/17 at 09:00 Insulin Detemir (Levemir) 3 units QHS SQ Last administered on 03/15/17 21:28; Start 03/12/17 at 21:00 Divalproex Sodium (Depakote Sprinkles) 125 mg TID PO Last administered on 08:04; Start 03/13/17 at 21:00; Stop 03/16/17 at 10:40; Status DC Bupropion HCl (Wellbutrin Xl) 150 mg DAILY PO Last administered on 03/16/17 08 :04; Start 03/15/17 at 09:00 Olanzapine (ZyPREXA) 2.5 mg QHS PO Last administered on 03/15/17 21:23; Start 03/15/17 at 21:00 Divalproex Sodium (Depakote Er) 500 mg QHS PO ; Start 03/16/17 at 21:00 Active Scripts Active Reported Zyprexa (Olanzapine) 2.5 Mg Tablet 2.5 Mg PO BID Senna (Sennosides) 8.6 Mg Tablet 8.6 Mg PO BID Primidone 50 Mg Tablet 150 Mg PO BID [polyethylene glycol] 17 Gm PO DAILY Omeprazole 20 Mg Capsule.dr 20 Mg PO DAILY Multiple Vitamin (Multivitamin With Minerals) 1 Each Tablet 1 Tab PO DAILY Modafinil 100 Mg Tablet 100 Mg PO DAILY Metoprolol Tartrate 25 Mg Tablet 25 Mg PO BID Levetiracetam 500 Mg Tablet 1,000 Mg PO BID Lantus Solostar (Insulin Glargine,Hum.rec.anlog) 100 Unit/1 Ml Insuln.pen 5 Unit SQ HS Fluticasone Propionate Nasal [place] (Fluticasone Propionate) 16 Gm [place].susp 1 [place] NS BID Docusate Sodium 100 Mg Capsule 100 Mg PO BID Vitamin D3 (Cholecalciferol (Vitamin D3)) 1,000 Unit Tablet 1,000 Unit PO DAILY Buspirone Hcl 5 Mg Tablet 5 Mg PO BID Bupropion Hcl Sr (Bupropion Hcl) 100 Mg Tablet.er 100 Mg PO DAILY Diagnosis: Problems: (1) Dementia with behavioral disturbance (2) Anxiety disorder (3) Impulse control disorder (4) Psychosis, atypical (5) Schizoaffective disorder (6) Bipolar affective disorder, mixed AYAKA FERNANDEZ MD Mar 16, 2017 20:02
[2017-03-16] MEDS: OLANZapine 2.5 MG TABLET PO SCH (20:32)
[2017-03-16] MEDS: DIVALPROEX ER 500 MG TAB.ER.24H PO SCH (21:35)
--- NOTE | 2017-03-17 02:56 | PN ---
DATE: 03/15/2017 This late entry 03/15/2017 covers elements, not covered in my initial note. SUBJECTIVE: The patient was seen individually evening of 03/15/2017. He is frequently wanting to get to bed, but the sedation perhaps a little better than before, not agitated, compliant, but drowsy. REVIEW OF SYSTEMS: Ambulation impaired, in wheelchair. No CV, , pulmonary, eye, ENT system symptoms on review. Reliability poor. MENTAL STATUS EXAM: Oriented to himself. Insight, judgment, recent and remote memory, attention, concentration, fund of knowledge poor, consistent with his diagnosis mentioned in my initial note. PLAN: Continue current psychotropics mentioned in my initial note, reviewed drug interactions, risk/benefit ratio favors no further change at this time. Depakote is being adjusted. Follow labs level. MAN Maria Antonia FERNANDEZ MD DR: CAMERON/varun JOB#: [id number] / [id number]
[2017-03-17] MEDS: INSULIN DETEMIR 300 UNITS/3 ML INSULN.PEN. SQ SCH ×2 (03:56→19:47)
[2017-03-17 05:34] VITALS: BP 107/63
[2017-03-17] MEDS: PRIMIDONE 50 MG TABLET PO SCH ×2 (08:00→19:26)
[2017-03-17] MEDS: levETIRAcetam 500 MG TABLET PO SCH ×2 (08:00→19:25)
[2017-03-17] MEDS: POLYETHYLENE GLYCOL 3350 17 GM PACKET. PO SCH (08:00)
[2017-03-17] MEDS: DOCUSATE SODIUM 100 MG CAPSULE PO SCH ×2 (08:00→19:25)
[2017-03-17] MEDS: CHOLECALCIFEROL (VITAMIN D3) 1,000 UNIT TABLET PO SCH (08:01)
[2017-03-17] MEDS: busPIRone 5 MG TABLET. PO SCH ×2 (08:01→19:26)
[2017-03-17] MEDS: MULTIVITAMIN with MINERAL TABLET. PO SCH (08:01)
[2017-03-17] MEDS: buPROPion XL 150 MG TAB.ER.24H PO SCH (08:01)
[2017-03-17] MEDS: PANTOPRAZOLE 40 MG TABLET. PO SCH (08:01)
[2017-03-17] MEDS: SENNOSIDES 8.6 MG TABLET PO SCH ×2 (08:01→19:25)
[2017-03-17] MEDS: METOPROLOL TART IMMED RELEASE 25 MG TABLET PO SCH ×2 (08:01→19:25)
[2017-03-17] MEDS: FLUTICASONE 50MCG/NASAL SPRAY 16GM BOTTLE. NS SCH ×2 (08:08→19:29)
[2017-03-17] MEDS: MODAFINIL 100 MG TABLET PO SCH (08:08)
[2017-03-17 16:19] VITALS: BP 104/63
[2017-03-17] MEDS: OLANZapine 2.5 MG TABLET PO SCH (19:26)
[2017-03-17] MEDS: DIVALPROEX ER 500 MG TAB.ER.24H PO SCH (19:26)
--- NOTE | 2017-03-17 19:52 | PDOC ---
Exam Trey Demential Exam: Trey Note: Please also refer to the separate dictated note~for this date of service dictated separately.~Patient seen individually. Discussed the patient with Nursing staff reviewed the chart.~Reviewed interim history and current functioning. Reviewed vital signs,~Labs/ Radiology~and current medications noted below. Continue current treatment with the changes noted in the dictated addendum note Assessment: Vital Signs: Vital Signs Date Time Temp Pulse Resp B/P (MAP) Pulse Ox O2 Delivery O2 Flow Rate FiO2 03/17/17 19:25 62 104/63 03/17/17 16:19 98.6 16 95 03/11/17 15:44 Room Air I&O Intake and Output 03/18/17 06:59 Intake Total 1080 ml Balance 1080 ml Intake Oral 1080 ml # Bowel Movements 1 Labs: Laboratory Tests Test 03/17/17 07:14 Glucose (Fingerstick) 102 mg/dL (70-99) H Current Medications: Meds: Current Medications Acetaminophen (Tylenol) 650 mg PRN Q6HRS PRN PO PAIN / TEMP; Start 03/08/17 at 21:45 Multi-Ingredient Ointment (Analgesic [place]) 1 fabrizio PRN QID PRN TP MUSCLE PAIN; Start 03/08/17 at 21:45 Al Hydroxide/Mg Hydroxide (Mylanta Plus Xs) 15 ml PRN AFTMEALHC PRN PO DYSPEPSIA; Start 03/08/17 at 21:45 Magnesium Hydroxide (Milk Of Magnesia) 2,400 mg PRN QHS PRN PO CONSTIPATION; Start 03/08/17 at 21:45 Bupropion HCl (Wellbutrin Sr) 100 mg DAILY PO Last administered on 03/14/17 08 :55; Start 03/09/17 at 09:00; Stop 03/14/17 at 18:22; Status DC Buspirone HCl (Buspar) 5 mg BID PO Last administered on 03/17/17 19:26; Start 03/08/17 at 23:00 Olanzapine (ZyPREXA) 2.5 mg BID PO Last administered on 03/15/17 08:07; Start 03/08/17 at 23:00; Stop 03/15/17 at 13:12; Status DC Docusate Sodium (Colace) 100 mg BID PO Last administered on 03/17/17 19:25; Start 03/08/17 at 23:00 Fluticasone Propionate (Flonase) 1 spray BID NS Last administered on 03/17/17 19:29; Start 03/08/17 at 23:00 Levetiracetam (Keppra) 1,000 mg BID PO Last administered on 03/17/17 19:25; Start 03/08/17 at 23:00 Metoprolol Tartrate (Lopressor) 25 mg BID PO Last administered on 03/17/17 19: 25; Start 03/08/17 at 23:00 Primidone (Mysoline) 150 mg BID PO Last administered on 03/17/17 19:26; Start 03/08/17 at 23:00 Sennosides (Senna) 8.6 mg BID PO Last administered on 03/17/17 19:25; Start at 23:00 Insulin Detemir (Levemir) 5 units QHS SQ Last administered on 03/11/17 19:55; Start 03/08/17 at 23:00; Stop 03/12/17 at 08:43; Status DC Vitamin D (Vitamin D3) 1,000 unit DAILY PO Last administered on 03/17/17 08:01 ; Start 03/09/17 at 09:00 Modafinil (Provigil) 100 mg DAILY PO Last administered on 03/17/17 08:08; Start 03/09/17 at 09:00 Multivitamins/ Calcium (Thera-M Plus) 1 tab DAILY PO Last administered on 08:01; Start 03/09/17 at 09:00 Pantoprazole Sodium (Protonix) 40 mg DAILYAC PO Last administered on 03/17/17 08:01; Start 03/09/17 at 08:45 Polyethylene Glycol (miraLAX) 17 gm DAILY PO Last administered on 03/17/17 08: 00; Start 03/09/17 at 09:00 Insulin Detemir (Levemir) 3 units QHS SQ Last administered on 03/17/17 19:47; Start 03/12/17 at 21:00 Divalproex Sodium (Depakote Sprinkles) 125 mg TID PO Last administered on 08:04; Start 03/13/17 at 21:00; Stop 03/16/17 at 10:40; Status DC Bupropion HCl (Wellbutrin Xl) 150 mg DAILY PO Last administered on 03/17/17 08: 01; Start 03/15/17 at 09:00 Olanzapine (ZyPREXA) 2.5 mg QHS PO Last administered on 03/17/17 19:26; Start 03/15/17 at 21:00 Divalproex Sodium (Depakote Er) 500 mg QHS PO Last administered on 03/17/17 19: 26; Start 03/16/17 at 21:00 Active Scripts Active Reported Zyprexa (Olanzapine) 2.5 Mg Tablet 2.5 Mg PO BID Senna (Sennosides) 8.6 Mg Tablet 8.6 Mg PO BID Primidone 50 Mg Tablet 150 Mg PO BID [polyethylene glycol] 17 Gm PO DAILY Omeprazole 20 Mg Capsule.dr 20 Mg PO DAILY Multiple Vitamin (Multivitamin With Minerals) 1 Each Tablet 1 Tab PO DAILY Modafinil 100 Mg Tablet 100 Mg PO DAILY Metoprolol Tartrate 25 Mg Tablet 25 Mg PO BID Levetiracetam 500 Mg Tablet 1,000 Mg PO BID Lantus Solostar (Insulin Glargine,Hum.rec.anlog) 100 Unit/1 Ml Insuln.pen 5 Unit SQ HS Fluticasone Propionate Nasal [place] (Fluticasone Propionate) 16 Gm [place].susp 1 [place] NS BID Docusate Sodium 100 Mg Capsule 100 Mg PO BID Vitamin D3 (Cholecalciferol (Vitamin D3)) 1,000 Unit Tablet 1,000 Unit PO DAILY Buspirone Hcl 5 Mg Tablet 5 Mg PO BID Bupropion Hcl Sr (Bupropion Hcl) 100 Mg Tablet.er 100 Mg PO DAILY Diagnosis: Problems: (1) Dementia with behavioral disturbance (2) Anxiety disorder (3) Impulse control disorder (4) Psychosis, atypical (5) Schizoaffective disorder (6) Bipolar affective disorder, mixed AYAKA FERNANDEZ MD Mar 17, 2017 19:52
[2017-03-18 05:50] VITALS: BP 98/62
[2017-03-18] MEDS: MULTIVITAMIN with MINERAL TABLET. PO SCH (07:41)
[2017-03-18] MEDS: CHOLECALCIFEROL (VITAMIN D3) 1,000 UNIT TABLET PO SCH (07:41)
[2017-03-18] MEDS: PANTOPRAZOLE 40 MG TABLET. PO SCH (07:41)
[2017-03-18] MEDS: busPIRone 5 MG TABLET. PO SCH ×2 (07:41→20:16)
[2017-03-18] MEDS: SENNOSIDES 8.6 MG TABLET PO SCH ×2 (07:42→20:16)
[2017-03-18] MEDS: DOCUSATE SODIUM 100 MG CAPSULE PO SCH ×2 (07:42→20:16)
[2017-03-18] MEDS: buPROPion XL 150 MG TAB.ER.24H PO SCH (07:42)
[2017-03-18] MEDS: levETIRAcetam 500 MG TABLET PO SCH ×2 (07:44→20:16)
[2017-03-18] MEDS: METOPROLOL TART IMMED RELEASE 25 MG TABLET PO SCH ×2 (07:44→20:17)
[2017-03-18] MEDS: POLYETHYLENE GLYCOL 3350 17 GM PACKET. PO SCH (07:45)
[2017-03-18] MEDS: MODAFINIL 100 MG TABLET PO SCH (07:45)
[2017-03-18] MEDS: PRIMIDONE 50 MG TABLET PO SCH ×2 (07:45→20:16)
[2017-03-18] MEDS: FLUTICASONE 50MCG/NASAL SPRAY 16GM BOTTLE. NS SCH ×2 (07:47→20:22)
--- NOTE | 2017-03-18 08:18 | PN ---
DATE: 03/16/2017 This late entry of 03/16/2017 covers elements not covered in my initial note of 03/16/2017. SUBJECTIVE: The patient was staffed at a treatment team meeting morning of 03/16/2017, seen individually evening of 03/16/2017. At the treatment team meeting, reviewed the patient's history, diagnosis, medication side effects, placement options. The patient remains withdrawn, somewhat sedated, drowsy, spends much time in bed. FAMILY HISTORY: Positive for Alzheimer's in mother, brother has Lewy body dementia. Valproic acid level is 15. REVIEW OF SYSTEMS: Ambulation impaired. No CV, , pulmonary, eye, ENT system symptoms on review. MENTAL STATUS EXAM: Oriented to himself. Insight, judgment, recent and remote memory, attention, concentration, fund of knowledge poor, consistent with his diagnosis mentioned in my initial note. PLAN: Increase Depakote Sprinkle from 125 mg 3 times a day to Depakote ER 500 mg at bedtime. Check CBC, CMP, valproic acid level in 3 days. Maintain the rest of the psychotropics. Reviewed drug interactions. Risk/benefit ratio favors no further change. MAN Maria Antonia FERNANDEZ MD DR: CAMERON/varun JOB#: [id number] / [id number]
[2017-03-18 16:15] VITALS: BP 114/66
[2017-03-18] MEDS: DIVALPROEX ER 500 MG TAB.ER.24H PO SCH (20:15)
[2017-03-18] MEDS: OLANZapine 2.5 MG TABLET PO SCH (20:16)
[2017-03-18] MEDS: INSULIN DETEMIR 300 UNITS/3 ML INSULN.PEN. SQ SCH (20:21)
--- NOTE | 2017-03-18 23:24 | PDOC ---
Exam Trey Demential Exam: Trey Note: Please also refer to the separate dictated note~for this date of service dictated separately.~Patient seen individually. Discussed the patient with Nursing staff reviewed the chart.~Reviewed interim history and current functioning. Reviewed vital signs,~Labs/ Radiology~and current medications noted below. Continue current treatment with the changes noted in the dictated addendum note Assessment: Vital Signs: Vital Signs Date Time Temp Pulse Resp B/P (MAP) Pulse Ox O2 Delivery O2 Flow Rate FiO2 03/18/17 20:17 74 114/66 03/18/17 16:15 98.2 22 94 I&O Intake and Output 03/19/17 06:59 Intake Total 1040 ml Balance 1040 ml Intake Oral 1040 ml Labs: Laboratory Tests Test 03/18/17 07:28 03/18/17 11:29 03/18/17 17:06 03/18/17 19:27 Glucose (Fingerstick) 85 mg/dL (70-99) 137 mg/dL (70-99) H 107 mg/dL (70-99) H 102 mg/dL (70-99) H Current Medications: Meds: Current Medications Acetaminophen (Tylenol) 650 mg PRN Q6HRS PRN PO PAIN / TEMP; Start 03/08/17 at 21:45 Multi-Ingredient Ointment (Analgesic [place]) 1 fabrizio PRN QID PRN TP MUSCLE PAIN; Start 03/08/17 at 21:45 Al Hydroxide/Mg Hydroxide (Mylanta Plus Xs) 15 ml PRN AFTMEALHC PRN PO DYSPEPSIA; Start 03/08/17 at 21:45 Magnesium Hydroxide (Milk Of Magnesia) 2,400 mg PRN QHS PRN PO CONSTIPATION; Start 03/08/17 at 21:45 Bupropion HCl (Wellbutrin Sr) 100 mg DAILY PO Last administered on 03/14/17 08 :55; Start 03/09/17 at 09:00; Stop 03/14/17 at 18:22; Status DC Buspirone HCl (Buspar) 5 mg BID PO Last administered on 03/18/17 20:16; Start 03/08/17 at 23:00 Olanzapine (ZyPREXA) 2.5 mg BID PO Last administered on 03/15/17 08:07; Start 03/08/17 at 23:00; Stop 03/15/17 at 13:12; Status DC Docusate Sodium (Colace) 100 mg BID PO Last administered on 03/18/17 20:16; Start 03/08/17 at 23:00 Fluticasone Propionate (Flonase) 1 spray BID NS Last administered on 03/18/17 20:22; Start 03/08/17 at 23:00 Levetiracetam (Keppra) 1,000 mg BID PO Last administered on 03/18/17 20:16; Start 03/08/17 at 23:00 Metoprolol Tartrate (Lopressor) 25 mg BID PO Last administered on 03/18/17 20: 17; Start 03/08/17 at 23:00 Primidone (Mysoline) 150 mg BID PO Last administered on 03/18/17 20:16; Start 03/08/17 at 23:00 Sennosides (Senna) 8.6 mg BID PO Last administered on 03/18/17 20:16; Start at 23:00 Insulin Detemir (Levemir) 5 units QHS SQ Last administered on 03/11/17 19:55; Start 03/08/17 at 23:00; Stop 03/12/17 at 08:43; Status DC Vitamin D (Vitamin D3) 1,000 unit DAILY PO Last administered on 03/18/17 07:41 ; Start 03/09/17 at 09:00 Modafinil (Provigil) 100 mg DAILY PO Last administered on 03/18/17 07:45; Start 03/09/17 at 09:00 Multivitamins/ Calcium (Thera-M Plus) 1 tab DAILY PO Last administered on 07:41; Start 03/09/17 at 09:00 Pantoprazole Sodium (Protonix) 40 mg DAILYAC PO Last administered on 03/18/17 07:41; Start 03/09/17 at 08:45 Polyethylene Glycol (miraLAX) 17 gm DAILY PO Last administered on 03/18/17 07: 45; Start 03/09/17 at 09:00 Insulin Detemir (Levemir) 3 units QHS SQ Last administered on 03/18/17 20:21; Start 8/27/17 at 21:00 Divalproex Sodium (Depakote Sprinkles) 125 mg TID PO Last administered on 08:04; Start 03/13/17 at 21:00; Stop 03/16/17 at 10:40; Status DC Bupropion HCl (Wellbutrin Xl) 150 mg DAILY PO Last administered on 03/18/17 07: 42; Start 03/15/17 at 09:00 Olanzapine (ZyPREXA) 2.5 mg QHS PO Last administered on 03/18/17 20:16; Start 03/15/17 at 21:00 Divalproex Sodium (Depakote Er) 500 mg QHS PO Last administered on 03/18/17 20: 15; Start 03/16/17 at 21:00 Active Scripts Active Reported Zyprexa (Olanzapine) 2.5 Mg Tablet 2.5 Mg PO BID Senna (Sennosides) 8.6 Mg Tablet 8.6 Mg PO BID Primidone 50 Mg Tablet 150 Mg PO BID [polyethylene glycol] 17 Gm PO DAILY Omeprazole 20 Mg Capsule.dr 20 Mg PO DAILY Multiple Vitamin (Multivitamin With Minerals) 1 Each Tablet 1 Tab PO DAILY Modafinil 100 Mg Tablet 100 Mg PO DAILY Metoprolol Tartrate 25 Mg Tablet 25 Mg PO BID Levetiracetam 500 Mg Tablet 1,000 Mg PO BID Lantus Solostar (Insulin Glargine,Hum.rec.anlog) 100 Unit/1 Ml Insuln.pen 5 Unit SQ HS Fluticasone Propionate Nasal [place] (Fluticasone Propionate) 16 Gm [place].susp 1 [place] NS BID Docusate Sodium 100 Mg Capsule 100 Mg PO BID Vitamin D3 (Cholecalciferol (Vitamin D3)) 1,000 Unit Tablet 1,000 Unit PO DAILY Buspirone Hcl 5 Mg Tablet 5 Mg PO BID Bupropion Hcl Sr (Bupropion Hcl) 100 Mg Tablet.er 100 Mg PO DAILY Diagnosis: Problems: (1) Dementia with behavioral disturbance (2) Anxiety disorder (3) Impulse control disorder (4) Psychosis, atypical (5) Schizoaffective disorder (6) Bipolar affective disorder, mixed AYAKA FERNANDEZ MD Mar 18, 2017 23:24
--- NOTE | 2017-03-19 03:42 | PN ---
DATE: 03/17/2017 PSYCHIATRIC PROGRESS NOTE This is a late entry of 03/17/2017 covers elements not covered in my initial note. SUBJECTIVE: I met with the patient evening of 03/17/2017. He is somewhat flirtatious napped in the afternoon more awake in the morning. REVIEW OF SYSTEMS: Ambulation impaired in wheelchair. No CV, , pulmonary, eye system symptoms on review. MENTAL STATUS EXAM: Oriented to himself. Insight, judgment, recent and remote memory, attention, concentration, fund of knowledge poor, consistent with his diagnosis mentioned in my initial note. PLAN: Continue current psychotropics reviewed drug interactions risk/benefit ratio favors no further change at this time. Depakote was adjusted. Labs level will be repeated on 03/19/2017. MAN Maria Antonia FERNANDEZ MD DR: CAMERON/varun JOB#: [id number] / [id number]
[2017-03-19 05:59] VITALS: BP 120/76
[2017-03-19] MEDS: PANTOPRAZOLE 40 MG TABLET. PO SCH (07:29)
[2017-03-19] MEDS: busPIRone 5 MG TABLET. PO SCH ×2 (07:29→20:07)
[2017-03-19] MEDS: buPROPion XL 150 MG TAB.ER.24H PO SCH (07:29)
[2017-03-19] MEDS: levETIRAcetam 500 MG TABLET PO SCH ×2 (07:30→20:07)
[2017-03-19] MEDS: DOCUSATE SODIUM 100 MG CAPSULE PO SCH ×2 (07:30→20:07)
[2017-03-19] MEDS: METOPROLOL TART IMMED RELEASE 25 MG TABLET PO SCH ×2 (07:31→20:08)
[2017-03-19] MEDS: POLYETHYLENE GLYCOL 3350 17 GM PACKET. PO SCH (07:32)
[2017-03-19] MEDS: MULTIVITAMIN with MINERAL TABLET. PO SCH (07:35)
[2017-03-19] MEDS: PRIMIDONE 50 MG TABLET PO SCH ×2 (07:35→20:07)
[2017-03-19] MEDS: MODAFINIL 100 MG TABLET PO SCH (07:35)
[2017-03-19] MEDS: SENNOSIDES 8.6 MG TABLET PO SCH ×2 (07:36→20:07)
[2017-03-19] MEDS: CHOLECALCIFEROL (VITAMIN D3) 1,000 UNIT TABLET PO SCH (07:36)
[2017-03-19] MEDS: FLUTICASONE 50MCG/NASAL SPRAY 16GM BOTTLE. NS SCH ×2 (07:37→20:11)
[2017-03-19 07:58] LABS: ALBUMIN 3.5 g/dL (3.4-5.0); ALBUMIN/GLOBULIN RATIO 1.1 (1.0-1.7); ALK PHOS 86 U/L (46-116); ALT (SGPT) 18 U/L (16-63); ANION GAP 5 (6-14); AST (SGOT) 11 U/L (15-37); BLOOD UREA NITROGEN 15 mg/dL (8-26); BUN/CREATININE RATIO 15 (6-20); CALCIUM 9.1 mg/dL (8.5-10.1); CARBON DIOXIDE 33 mmol/L (21-32); CHLORIDE 104 mmol/L (98-107); GFR 89.6; GLUCOSE 93 mg/dL (70-99); POTASSIUM 4.2 mmol/L (3.5-5.1); SODIUM 142 mmol/L (136-145); TOTAL BILIRUBIN 0.4 mg/dL (0.2-1.0); TOTAL PROTEIN 6.7 g/dL (6.4-8.2)
[2017-03-19 08:01] LABS: VAL ACID 19 mcg/mL (50-100)
[2017-03-19 08:11] LABS: BASO % 1 % (0-3); EOS # 0.2 x10^3/uL (0.0-0.7); EOS % 5 % (0-3); HEMATOCRIT 45.4 % (39.0-53.0); HEMOGLOBIN 15.2 g/dL (13.0-17.5); LYMPH # 1.1 x10^3/uL (1.0-4.8); LYMPH % 23 % (24-48); MEAN CORPUSCULAR HEMOGLOBIN 32 pg (25-35); MEAN CORPUSCULAR HGB CONC 34 g/dL (31-37); MEAN CORPUSCULAR VOLUME 94 fL (79-100); MONO # 0.5 x10^3/uL (0.0-1.1); MONO % 10 % (0-9); NEUT % 62 % (31-73); PLATELET COUNT 199 x10^3/uL (140-400); RED BLOOD COUNT 4.81 x10^6/uL (4.30-5.70); RED CELL DISTRIBUTION WIDTH 15.3 % (11.5-14.5); WHITE BLOOD COUNT 4.8 x10^3/uL (4.0-11.0)
[2017-03-19 15:50] VITALS: BP 137/75
[2017-03-19] MEDS: DIVALPROEX ER 500 MG TAB.ER.24H PO SCH (20:08)
[2017-03-19] MEDS: OLANZapine 2.5 MG TABLET PO SCH (20:08)
[2017-03-19] MEDS: INSULIN DETEMIR 300 UNITS/3 ML INSULN.PEN. SQ SCH (20:09)
--- NOTE | 2017-03-19 21:54 | PDOC ---
Exam Trey Demential Exam: Trey Note: Please also refer to the separate dictated note~for this date of service dictated separately.~Patient seen individually. Discussed the patient with Nursing staff reviewed the chart.~Reviewed interim history and current functioning. Reviewed vital signs,~Labs/ Radiology~and current medications noted below. Continue current treatment with the changes noted in the dictated addendum note Assessment: Vital Signs: Vital Signs Date Time Temp Pulse Resp B/P (MAP) Pulse Ox O2 Delivery O2 Flow Rate FiO2 03/19/17 20:08 85 137/75 03/19/17 15:50 98.1 19 97 I&O Intake and Output 03/20/17 06:59 Intake Total 1265 ml Balance 1265 ml Intake Oral 1265 ml Labs: Laboratory Tests Test 03/19/17 06:55 03/19/17 07:19 03/19/17 19:14 White Blood Count 4.8 x10^3/uL (4.0-11.0) Red Blood Count 4.81 x10^6/uL (4.30-5.70) Hemoglobin 15.2 g/dL (13.0-17.5) Hematocrit 45.4 % (39.0-53.0) Mean Corpuscular Volume 94 fL (79-100) Mean Corpuscular Hemoglobin 32 pg (25-35) Mean Corpuscular Hemoglobin Concent 34 g/dL (31-37) Red Cell Distribution Width 15.3 % (11.5-14.5) H Platelet Count 199 x10^3/uL (140-400) Neutrophils (%) (Auto) 62 % (31-73) Lymphocytes (%) (Auto) 23 % (24-48) L Monocytes (%) (Auto) 10 % (0-9) H Eosinophils (%) (Auto) 5 % (0-3) H Basophils (%) (Auto) 1 % (0-3) Neutrophils # (Auto) 3.0 x10^3uL (1.8-7.7) Lymphocytes # (Auto) 1.1 x10^3/uL (1.0-4.8) Monocytes # (Auto) 0.5 x10^3/uL (0.0-1.1) Eosinophils # (Auto) 0.2 x10^3/uL (0.0-0.7) Basophils # (Auto) 0.0 x10^3/uL (0.0-0.2) Sodium Level 142 mmol/L (136-145) Potassium Level 4.2 mmol/L (3.5-5.1) Chloride Level 104 mmol/L (98-107) Carbon Dioxide Level 33 mmol/L (21-32) H Anion Gap 5 (6-14) L Blood Urea Nitrogen 15 mg/dL (8-26) Creatinine 1.0 mg/dL (0.7-1.3) Estimated GFR (Cockcroft-Gault) 89.6 BUN/Creatinine Ratio 15 (6-20) Glucose Level 93 mg/dL (70-99) Calcium Level 9.1 mg/dL (8.5-10.1) Total Bilirubin 0.4 mg/dL (0.2-1.0) Aspartate Amino Transferase (AST) 11 U/L (15-37) L Alanine Aminotransferase (ALT) 18 U/L (16-63) Alkaline Phosphatase 86 U/L (46-116) Total Protein 6.7 g/dL (6.4-8.2) Albumin 3.5 g/dL (3.4-5.0) Albumin/Globulin Ratio 1.1 (1.0-1.7) Valproic Acid Level 19 mcg/mL (50-100) L Valproic Acid Last Dose Date 03/18/2017 Valproic Acid Last Dose Time 2100 Glucose (Fingerstick) 87 mg/dL (70-99) 143 mg/dL (70-99) H Current Medications: Meds: Current Medications Acetaminophen (Tylenol) 650 mg PRN Q6HRS PRN PO PAIN / TEMP; Start 03/08/17 at 21:45 Multi-Ingredient Ointment (Analgesic [place]) 1 fabrizio PRN QID PRN TP MUSCLE PAIN; Start 03/08/17 at 21:45 Al Hydroxide/Mg Hydroxide (Mylanta Plus Xs) 15 ml PRN AFTMEALHC PRN PO DYSPEPSIA; Start 03/08/17 at 21:45 Magnesium Hydroxide (Milk Of Magnesia) 2,400 mg PRN QHS PRN PO CONSTIPATION; Start 03/08/17 at 21:45 Bupropion HCl (Wellbutrin Sr) 100 mg DAILY PO Last administered on 03/14/17t 08 :55; Start 03/09/17 at 09:00; Stop 03/14/17 at 18:22; Status DC Buspirone HCl (Buspar) 5 mg BID PO Last administered on 03/19/17 20:07; Start 03/08/17 at 23:00 Olanzapine (ZyPREXA) 2.5 mg BID PO Last administered on 03/15/17 08:07; Start 03/08/17 at 23:00; Stop 03/15/17 at 13:12; Status DC Docusate Sodium (Colace) 100 mg BID PO Last administered on 03/19/17 20:07; Start 03/08/17 at 23:00 Fluticasone Propionate (Flonase) 1 spray BID NS Last administered on 03/19/17 20:11; Start 03/08/17 at 23:00 Levetiracetam (Keppra) 1,000 mg BID PO Last administered on 03/19/17 20:07; Start 03/08/17 at 23:00 Metoprolol Tartrate (Lopressor) 25 mg BID PO Last administered on 03/19/17 20: 08; Start 03/08/17 at 23:00 Primidone (Mysoline) 150 mg BID PO Last administered on 03/19/17 20:07; Start 03/08/17 at 23:00 Sennosides (Senna) 8.6 mg BID PO Last administered on 03/19/17 20:07; Start at 23:00 Insulin Detemir (Levemir) 5 units QHS SQ Last administered on 03/11/17 19:55; Start 03/08/17 at 23:00; Stop 03/12/17 at 08:43; Status DC Vitamin D (Vitamin D3) 1,000 unit DAILY PO Last administered on 03/19/17 07:36 ; Start 03/09/17 at 09:00 Modafinil (Provigil) 100 mg DAILY PO Last administered on 03/19/17 07:35; Start 03/09/17 at 09:00 Multivitamins/ Calcium (Thera-M Plus) 1 tab DAILY PO Last administered on 07:35; Start 03/09/17 at 09:00 Pantoprazole Sodium (Protonix) 40 mg DAILYAC PO Last administered on 03/19/17 07:29; Start 03/09/17 at 08:45 Polyethylene Glycol (miraLAX) 17 gm DAILY PO Last administered on 03/19/17 07: 32; Start 03/09/17 at 09:00 Insulin Detemir (Levemir) 3 units QHS SQ Last administered on 03/19/17 20:09; Start 03/12/17 at 21:00 Divalproex Sodium (Depakote Sprinkles) 125 mg TID PO Last administered on 08:04; Start 03/13/17 at 21:00; Stop 03/16/17 at 10:40; Status DC Bupropion HCl (Wellbutrin Xl) 150 mg DAILY PO Last administered on 03/19/17 07: 29; Start 03/15/17 at 09:00 Olanzapine (ZyPREXA) 2.5 mg QHS PO Last administered on 03/19/17 20:08; Start 03/15/17 at 21:00 Divalproex Sodium (Depakote Er) 500 mg QHS PO Last administered on 03/19/17 20: 08; Start 03/16/17 at 21:00 Active Scripts Active Reported Zyprexa (Olanzapine) 2.5 Mg Tablet 2.5 Mg PO BID Senna (Sennosides) 8.6 Mg Tablet 8.6 Mg PO BID Primidone 50 Mg Tablet 150 Mg PO BID [polyethylene glycol] 17 Gm PO DAILY Omeprazole 20 Mg Capsule.dr 20 Mg PO DAILY Multiple Vitamin (Multivitamin With Minerals) 1 Each Tablet 1 Tab PO DAILY Modafinil 100 Mg Tablet 100 Mg PO DAILY Metoprolol Tartrate 25 Mg Tablet 25 Mg PO BID Levetiracetam 500 Mg Tablet 1,000 Mg PO BID Lantus Solostar (Insulin Glargine,Hum.rec.anlog) 100 Unit/1 Ml Insuln.pen 5 Unit SQ HS Fluticasone Propionate Nasal [place] (Fluticasone Propionate) 16 Gm [place].susp 1 [place] NS BID Docusate Sodium 100 Mg Capsule 100 Mg PO BID Vitamin D3 (Cholecalciferol (Vitamin D3)) 1,000 Unit Tablet 1,000 Unit PO DAILY Buspirone Hcl 5 Mg Tablet 5 Mg PO BID Bupropion Hcl Sr (Bupropion Hcl) 100 Mg Tablet.er 100 Mg PO DAILY Diagnosis: Problems: (1) Dementia with behavioral disturbance (2) Anxiety disorder (3) Impulse control disorder (4) Psychosis, atypical (5) Schizoaffective disorder (6) Bipolar affective disorder, mixed AYAKA FERNANDEZ MD Mar 19, 2017 21:54
--- NOTE | 2017-03-20 01:26 | PN ---
DATE: 03/18/2017 This late entry 03/18/2017 covers elements not covered my initial note of 03/18/2017. SUBJECTIVE: The patient was seen individually in the evening of 03/18/2017. Overall, per nursing report, the patient has been compliant, pleasant, withdrawn, drowsy at times, but perhaps less so than before. He gets a little labile, irritable, but redirects. REVIEW OF SYSTEMS: Ambulation impaired in wheelchair. No CV, , pulmonary, eye, ENT system symptoms on review. Reliability poor. MENTAL STATUS EXAM: Oriented to himself, pleasant, verbal. Insight, judgment, recent and remote memory, attention, concentration, fund of knowledge poor, consistent with his diagnosis mentioned in my initial note. PLAN: Continue current psychotropics. Reviewed drug interactions. Risk/benefit ratio favors no further change. Check valproic acid level on 03/19/2017 in the morning. Make further adjustments in Depakote to reach a therapeutic level. AYAKA FERNANDEZ MD DR: CAMERON/varun JOB#: [id number] / [id number]
[2017-03-20 06:31] VITALS: BP 90/55
[2017-03-20] MEDS: POLYETHYLENE GLYCOL 3350 17 GM PACKET. PO SCH (08:22)
[2017-03-20] MEDS: DOCUSATE SODIUM 100 MG CAPSULE PO SCH ×2 (08:22→19:32)
[2017-03-20] MEDS: buPROPion XL 150 MG TAB.ER.24H PO SCH (08:23)
[2017-03-20] MEDS: levETIRAcetam 500 MG TABLET PO SCH ×2 (08:23→19:32)
[2017-03-20] MEDS: PRIMIDONE 50 MG TABLET PO SCH ×2 (08:23→19:33)
[2017-03-20] MEDS: CHOLECALCIFEROL (VITAMIN D3) 1,000 UNIT TABLET PO SCH (08:23)
[2017-03-20] MEDS: PANTOPRAZOLE 40 MG TABLET. PO SCH (08:23)
[2017-03-20] MEDS: busPIRone 5 MG TABLET. PO SCH ×2 (08:23→19:32)
[2017-03-20] MEDS: SENNOSIDES 8.6 MG TABLET PO SCH ×2 (08:23→19:32)
[2017-03-20] MEDS: METOPROLOL TART IMMED RELEASE 25 MG TABLET PO SCH ×2 (08:23→19:32)
[2017-03-20] MEDS: MULTIVITAMIN with MINERAL TABLET. PO SCH (08:23)
[2017-03-20] MEDS: FLUTICASONE 50MCG/NASAL SPRAY 16GM BOTTLE. NS SCH ×2 (08:27→19:35)
[2017-03-20] MEDS: MODAFINIL 100 MG TABLET PO SCH (08:40)
[2017-03-20 15:55] VITALS: BP 125/76
[2017-03-20] MEDS: OLANZapine 2.5 MG TABLET PO SCH (19:32)
[2017-03-20] MEDS: DIVALPROEX ER 500 MG TAB.ER.24H PO SCH (19:35)
[2017-03-20] MEDS: INSULIN DETEMIR 300 UNITS/3 ML INSULN.PEN. SQ SCH (19:36)
--- NOTE | 2017-03-20 22:49 | PDOC ---
Exam Trey Demential Exam: Trey Note: Please also refer to the separate dictated note~for this date of service dictated separately.~Patient seen individually. Discussed the patient with Nursing staff reviewed the chart.~Reviewed interim history and current functioning. Reviewed vital signs,~Labs/ Radiology~and current medications noted below. Continue current treatment with the changes noted in the dictated addendum note Assessment: Vital Signs: Vital Signs Date Time Temp Pulse Resp B/P (MAP) Pulse Ox O2 Delivery O2 Flow Rate FiO2 03/20/17 19:32 73 125/76 03/20/17 15:55 97.8 18 96 I&O Intake and Output 03/21/17 06:59 Intake Total 1060 ml Balance 1060 ml Intake Oral 1060 ml # Voids 2 Labs: Laboratory Tests Test 03/20/17 07:09 03/20/17 19:06 Glucose (Fingerstick) 89 mg/dL (70-99) 156 mg/dL (70-99) H Current Medications: Meds: Current Medications Acetaminophen (Tylenol) 650 mg PRN Q6HRS PRN PO PAIN / TEMP; Start 03/08/17 at 21:45 Multi-Ingredient Ointment (Analgesic [place]) 1 fabrizio PRN QID PRN TP MUSCLE PAIN; Start 03/08/17 at 21:45 Al Hydroxide/Mg Hydroxide (Mylanta Plus Xs) 15 ml PRN AFTMEALHC PRN PO DYSPEPSIA; Start 03/08/17 at 21:45 Magnesium Hydroxide (Milk Of Magnesia) 2,400 mg PRN QHS PRN PO CONSTIPATION; Start 03/08/17 at 21:45 Bupropion HCl (Wellbutrin Sr) 100 mg DAILY PO Last administered on 03/14/17 08 :55; Start 03/09/17 at 09:00; Stop 03/14/17 at 18:22; Status DC Buspirone HCl (Buspar) 5 mg BID PO Last administered on 03/20/17 19:32; Start 03/08/17 at 23:00 Olanzapine (ZyPREXA) 2.5 mg BID PO Last administered on 03/15/17 08:07; Start 03/08/17 at 23:00; Stop 03/15/17 at 13:12; Status DC Docusate Sodium (Colace) 100 mg BID PO Last administered on 03/20/17 19:32; Start 03/08/17 at 23:00 Fluticasone Propionate (Flonase) 1 spray BID NS Last administered on 03/20/17 19:35; Start 03/08/17 at 23:00 Levetiracetam (Keppra) 1,000 mg BID PO Last administered on 03/20/17 19:32; Start 03/08/17 at 23:00 Metoprolol Tartrate (Lopressor) 25 mg BID PO Last administered on 03/20/17 19: 32; Start 03/08/17 at 23:00 Primidone (Mysoline) 150 mg BID PO Last administered on 03/20/17 19:33; Start 03/08/17 at 23:00 Sennosides (Senna) 8.6 mg BID PO Last administered on 03/20/17 19:32; Start at 23:00 Insulin Detemir (Levemir) 5 units QHS SQ Last administered on 03/11/17 19:55; Start 03/08/17 at 23:00; Stop 03/12/17 at 08:43; Status DC Vitamin D (Vitamin D3) 1,000 unit DAILY PO Last administered on 03/20/17 08:23 ; Start 03/09/17 at 09:00 Modafinil (Provigil) 100 mg DAILY PO Last administered on 03/20/17 08:40; Start 03/09/17 at 09:00 Multivitamins/ Calcium (Thera-M Plus) 1 tab DAILY PO Last administered on 08:23; Start 03/09/17 at 09:00 Pantoprazole Sodium (Protonix) 40 mg DAILYAC PO Last administered on 03/20/17 08:23; Start 03/09/17 at 08:45 Polyethylene Glycol (miraLAX) 17 gm DAILY PO Last administered on 03/20/17 08: 22; Start 03/09/17 at 09:00 Insulin Detemir (Levemir) 3 units QHS SQ Last administered on 03/20/17 19:36; Start 03/12/17 at 21:00 Divalproex Sodium (Depakote Sprinkles) 125 mg TID PO Last administered on 08:04; Start 03/13/17 at 21:00; Stop 03/16/17 at 10:40; Status DC Bupropion HCl (Wellbutrin Xl) 150 mg DAILY PO Last administered on 03/20/17 08: 23; Start 03/15/17 at 09:00 Olanzapine (ZyPREXA) 2.5 mg QHS PO Last administered on 03/20/17 19:32; Start 03/15/17 at 21:00 Divalproex Sodium (Depakote Er) 500 mg QHS PO Last administered on 03/20/17 19: 35; Start 03/16/17 at 21:00 Active Scripts Active Reported Zyprexa (Olanzapine) 2.5 Mg Tablet 2.5 Mg PO BID Senna (Sennosides) 8.6 Mg Tablet 8.6 Mg PO BID Primidone 50 Mg Tablet 150 Mg PO BID [polyethylene glycol] 17 Gm PO DAILY Omeprazole 20 Mg Capsule.dr 20 Mg PO DAILY Multiple Vitamin (Multivitamin With Minerals) 1 Each Tablet 1 Tab PO DAILY Modafinil 100 Mg Tablet 100 Mg PO DAILY Metoprolol Tartrate 25 Mg Tablet 25 Mg PO BID Levetiracetam 500 Mg Tablet 1,000 Mg PO BID Lantus Solostar (Insulin Glargine,Hum.rec.anlog) 100 Unit/1 Ml Insuln.pen 5 Unit SQ HS Fluticasone Propionate Nasal [place] (Fluticasone Propionate) 16 Gm [place].susp 1 [place] NS BID Docusate Sodium 100 Mg Capsule 100 Mg PO BID Vitamin D3 (Cholecalciferol (Vitamin D3)) 1,000 Unit Tablet 1,000 Unit PO DAILY Buspirone Hcl 5 Mg Tablet 5 Mg PO BID Bupropion Hcl Sr (Bupropion Hcl) 100 Mg Tablet.er 100 Mg PO DAILY Diagnosis: Problems: (1) Dementia with behavioral disturbance (2) Anxiety disorder (3) Impulse control disorder (4) Psychosis, atypical (5) Schizoaffective disorder (6) Bipolar affective disorder, mixed AYAKA FERNANDEZ MD Mar 20, 2017 22:49
--- NOTE | 2017-03-21 00:15 | PN ---
DATE: 03/19/2017 This late entry of 03/19 covers elements not covered in my initial note. SUBJECTIVE: I met with the patient on the evening of 03/19. The patient slept 7-1/4 hours the previous evening, pleasant, cooperative, was somewhat irritable and labile the previous evening and evening of 03/19. REVIEW OF SYSTEMS: Ambulation impaired. No CV, , pulmonary or eye system symptoms on review, less drowsy. Reliability poor. MENTAL STATUS EXAM: Oriented to himself. Insight, judgment, recent and remote memory, attention, concentration, fund of knowledge poor, consistent with his diagnosis mentioned in my initial note. PLAN: Continue current psychotropics. Adjust further as clinically indicated. Review drug interactions, risk/benefit ratio favors no further change. MAN Maria Antonia FERNANDEZ MD DR: CAMERON/varun JOB#: [id number] / [id number]
[2017-03-21 06:37] VITALS: BP 94/62
[2017-03-21] MEDS: CHOLECALCIFEROL (VITAMIN D3) 1,000 UNIT TABLET PO SCH ×2 (07:56→17:12)
[2017-03-21] MEDS: MULTIVITAMIN with MINERAL TABLET. PO SCH (07:56)
[2017-03-21] MEDS: PANTOPRAZOLE 40 MG TABLET. PO SCH (07:56)
[2017-03-21] MEDS: DOCUSATE SODIUM 100 MG CAPSULE PO SCH ×2 (07:56→19:31)
[2017-03-21] MEDS: METOPROLOL TART IMMED RELEASE 25 MG TABLET PO SCH ×2 (07:56→19:32)
[2017-03-21] MEDS: SENNOSIDES 8.6 MG TABLET PO SCH ×2 (07:56→19:32)
[2017-03-21] MEDS: PRIMIDONE 50 MG TABLET PO SCH ×2 (07:56→19:31)
[2017-03-21] MEDS: buPROPion XL 150 MG TAB.ER.24H PO SCH (07:56)
[2017-03-21] MEDS: POLYETHYLENE GLYCOL 3350 17 GM PACKET. PO SCH (07:56)
[2017-03-21] MEDS: busPIRone 5 MG TABLET. PO SCH ×2 (07:56→19:32)
[2017-03-21] MEDS: levETIRAcetam 500 MG TABLET PO SCH ×2 (07:57→19:32)
[2017-03-21] MEDS: MODAFINIL 100 MG TABLET PO SCH (07:58)
[2017-03-21] MEDS: FLUTICASONE 50MCG/NASAL SPRAY 16GM BOTTLE. NS SCH ×2 (07:58→19:37)
[2017-03-21 17:32] VITALS: BP 115/75
[2017-03-21] MEDS: OLANZapine 2.5 MG TABLET PO SCH (19:32)
--- NOTE | 2017-03-21 19:37 | PDOC ---
Exam Trey Demential Exam: Trey Note: Please also refer to the separate dictated note~for this date of service dictated separately.~Patient seen individually. Discussed the patient with Nursing staff reviewed the chart.~Reviewed interim history and current functioning. Reviewed vital signs,~Labs/ Radiology~and current medications noted below. Continue current treatment with the changes noted in the dictated addendum note Assessment: Vital Signs: Vital Signs Date Time Temp Pulse Resp B/P (MAP) Pulse Ox O2 Delivery O2 Flow Rate FiO2 03/21/17 19:32 87 115/75 03/21/17 17:32 97.5 18 96 Room Air I&O Intake and Output 03/22/17 07:00 Intake Total 960 ml Balance 960 ml Intake Oral 960 ml Labs: Laboratory Tests Test 03/21/17 07:18 03/21/17 11:59 03/21/17 19:03 Glucose (Fingerstick) 111 mg/dL (70-99) H 95 mg/dL (70-99) 112 mg/dL (70-99) H Current Medications: Meds: Current Medications Acetaminophen (Tylenol) 650 mg PRN Q6HRS PRN PO PAIN / TEMP; Start 03/08/17 at 21:45 Multi-Ingredient Ointment (Analgesic [place]) 1 fabrizio PRN QID PRN TP MUSCLE PAIN; Start 03/08/17 at 21:45 Al Hydroxide/Mg Hydroxide (Mylanta Plus Xs) 15 ml PRN AFTMEALHC PRN PO DYSPEPSIA; Start 03/08/17 at 21:45 Magnesium Hydroxide (Milk Of Magnesia) 2,400 mg PRN QHS PRN PO CONSTIPATION Last administered on 03/21/17 17:13; Start 03/08/17 at 21:45 Bupropion HCl (Wellbutrin Sr) 100 mg DAILY PO Last administered on 03/14/17 08 :55; Start 03/09/17 at 09:00; Stop 03/14/17 at 18:22; Status DC Buspirone HCl (Buspar) 5 mg BID PO Last administered on 03/21/17 19:32; Start 03/08/17 at 23:00 Olanzapine (ZyPREXA) 2.5 mg BID PO Last administered on 03/15/17 08:07; Start 03/08/17 at 23:00; Stop 03/15/17 at 13:12; Status DC Docusate Sodium (Colace) 100 mg BID PO Last administered on 03/21/17 19:31; Start 03/08/17 at 23:00 Fluticasone Propionate (Flonase) 1 spray BID NS Last administered on 03/21/17 07:58; Start 03/08/17 at 23:00 Levetiracetam (Keppra) 1,000 mg BID PO Last administered on 03/21/17 19:32; Start 03/08/17 at 23:00 Metoprolol Tartrate (Lopressor) 25 mg BID PO Last administered on 03/21/17 19: 32; Start 03/08/17 at 23:00 Primidone (Mysoline) 150 mg BID PO Last administered on 03/21/17 19:31; Start 03/08/17 at 23:00 Sennosides (Senna) 8.6 mg BID PO Last administered on 03/21/17 19:32; Start at 23:00 Insulin Detemir (Levemir) 5 units QHS SQ Last administered on 03/11/17 19:55; Start 03/08/17 at 23:00; Stop 03/12/17 at 08:43; Status DC Vitamin D (Vitamin D3) 1,000 unit DAILY PO Last administered on 03/21/17 07:56 ; Start 03/09/17 at 09:00; Stop 03/21/17 at 15:46; Status DC Modafinil (Provigil) 100 mg DAILY PO Last administered on 03/21/17 07:58; Start 03/09/17 at 09:00 Multivitamins/ Calcium (Thera-M Plus) 1 tab DAILY PO Last administered on 07:56; Start 03/09/17 at 09:00 Pantoprazole Sodium (Protonix) 40 mg DAILYAC PO Last administered on 03/21/17 07:56; Start 03/09/17 at 08:45 Polyethylene Glycol (miraLAX) 17 gm DAILY PO Last administered on 03/21/17 07: 56; Start 03/09/17 at 09:00 Insulin Detemir (Levemir) 3 units QHS SQ Last administered on 03/20/17 19:36; Start 03/12/17 at 21:00 Divalproex Sodium (Depakote Sprinkles) 125 mg TID PO Last administered on 08:04; Start 03/13/17 at 21:00; Stop 03/16/17 at 10:40; Status DC Bupropion HCl (Wellbutrin Xl) 150 mg DAILY PO Last administered on 03/21/17 07: 56; Start 03/15/17 at 09:00 Olanzapine (ZyPREXA) 2.5 mg QHS PO Last administered on 03/21/17 19:32; Start 03/15/17 at 21:00 Divalproex Sodium (Depakote Er) 500 mg QHS PO Last administered on 03/20/17 19: 35; Start 03/16/17 at 21:00; Stop 03/21/17 at 16:09; Status DC Vitamin D (Vitamin D3) 2,000 unit BIDACLD PO Last administered on 03/21/17 17: 12; Start 03/21/17 at 16:30 Divalproex Sodium (Depakote Er) 750 mg QHS PO Last administered on 03/21/17 19: 34; Start 03/21/17 at 21:00 Active Scripts Active Reported Zyprexa (Olanzapine) 2.5 Mg Tablet 2.5 Mg PO BID Senna (Sennosides) 8.6 Mg Tablet 8.6 Mg PO BID Primidone 50 Mg Tablet 150 Mg PO BID [polyethylene glycol] 17 Gm PO DAILY Omeprazole 20 Mg Capsule.dr 20 Mg PO DAILY Multiple Vitamin (Multivitamin With Minerals) 1 Each Tablet 1 Tab PO DAILY Modafinil 100 Mg Tablet 100 Mg PO DAILY Metoprolol Tartrate 25 Mg Tablet 25 Mg PO BID Levetiracetam 500 Mg Tablet 1,000 Mg PO BID Lantus Solostar (Insulin Glargine,Hum.rec.anlog) 100 Unit/1 Ml Insuln.pen 5 Unit SQ HS Fluticasone Propionate Nasal [place] (Fluticasone Propionate) 16 Gm [place].susp 1 [place] NS BID Docusate Sodium 100 Mg Capsule 100 Mg PO BID Vitamin D3 (Cholecalciferol (Vitamin D3)) 1,000 Unit Tablet 1,000 Unit PO DAILY Buspirone Hcl 5 Mg Tablet 5 Mg PO BID Bupropion Hcl Sr (Bupropion Hcl) 100 Mg Tablet.er 100 Mg PO DAILY Diagnosis: Problems: (1) Dementia with behavioral disturbance (2) Anxiety disorder (3) Impulse control disorder (4) Psychosis, atypical (5) Schizoaffective disorder (6) Bipolar affective disorder, mixed AYAKA FERNANDEZ MD Mar 21, 2017 19:37
[2017-03-21] MEDS: INSULIN DETEMIR 300 UNITS/3 ML INSULN.PEN. SQ SCH (19:39)
[2017-03-21] MEDS ORDERED: DIVALPROEX ER 250 MG TAB.ER.24H. PO SCH (21:00)
--- NOTE | 2017-03-22 01:34 | PN ---
DATE: 03/20/2017 This late entry for 03/20/2017 [place] elements not covered in my initial note. I met with the patient in the evening of 03/20/2017. SUBJECTIVE: The patient has been anxious, labile, angry at times throughout the day, withdrawn. REVIEW OF SYSTEMS: No CV, , pulmonary, eye, ENT system symptoms on review. Gait unsteady, in wheelchair. Reliability poor. MENTAL STATUS EXAM: Oriented to himself. Insight, judgment, recent and remote memory, attention, concentration, fund of knowledge poor, consistent with his diagnosis mentioned in my initial note. PLAN: Valproic acid level is 19 on Depakote ER 500 mg at bedtime. We will increase to 750 at bedtime on 03/19/2017. Check CBC, CMP, valproic acid level in 3 days. Adjust further as clinically indicated. Reviewed drug interactions. Risk/benefit ratio favors no further change. AYAKA FERNANDEZ MD DR: CAMERON/varun JOB#: [id number] / [id number]
[2017-03-22 06:13] VITALS: BP 125/62
[2017-03-22] MEDS: DOCUSATE SODIUM 100 MG CAPSULE PO SCH (08:14)
[2017-03-22] MEDS: POLYETHYLENE GLYCOL 3350 17 GM PACKET. PO SCH (08:14)
[2017-03-22] MEDS: MODAFINIL 100 MG TABLET PO SCH (08:14)
[2017-03-22] MEDS: busPIRone 5 MG TABLET. PO SCH (08:14)
[2017-03-22] MEDS: CHOLECALCIFEROL (VITAMIN D3) 1,000 UNIT TABLET PO SCH (08:15)
[2017-03-22] MEDS: levETIRAcetam 500 MG TABLET PO SCH (08:15)
[2017-03-22] MEDS: PANTOPRAZOLE 40 MG TABLET. PO SCH (08:15)
[2017-03-22] MEDS: PRIMIDONE 50 MG TABLET PO SCH (08:15)
[2017-03-22] MEDS: SENNOSIDES 8.6 MG TABLET PO SCH (08:15)
[2017-03-22] MEDS: MULTIVITAMIN with MINERAL TABLET. PO SCH (08:15)
[2017-03-22] MEDS: METOPROLOL TART IMMED RELEASE 25 MG TABLET PO SCH (08:16)
[2017-03-22] MEDS: buPROPion XL 150 MG TAB.ER.24H PO SCH (08:17)
[2017-03-22] MEDS: FLUTICASONE 50MCG/NASAL SPRAY 16GM BOTTLE. NS SCH (08:17)
--- NOTE | 2017-03-22 09:47 | RAD ---
JOSE DANIEL, 03/22/2017: History: Constipation, distention There is a moderate amount stool in the right colon. There is moderate gaseous distention of a bowel loop in the midabdomen, probably representing a loop of sigmoid colon. No rectal distention is evident. No underlying organomegaly is seen. No abnormal abdominal calcifications are evident. Moderate degenerative changes are present in the spine. IMPRESSION: Moderate amount of retained stool in the right colon with gaseous distention of what appears to be a loop of sigmoid colon. Diagnostic considerations include a sigmoid volvulus or other obstructive process at the distal sigmoid level, versus an atonic colon. CT scanning may be useful for further evaluation, if clinically indicated. Note: The findings were called to the patient's nurse on the floor at 9:43 AM on 03/22/2017.
[2017-03-22] MEDS ORDERED: IOHEXOL 240 MG/ML 50ML VIAL. PO ONE (10:30)
[2017-03-22] MEDS ORDERED: IOHEXOL 300 MG/ML 75 ML VIAL. IV ONE (10:30)
[2017-03-22 12:49] LABS: BASO # 0.1 x10^3/uL (0.0-0.2); BASO % 1 % (0-3); EOS # 0.2 x10^3/uL (0.0-0.7); EOS % 1 % (0-3); HEMOGLOBIN 15.4 g/dL (13.0-17.5); LYMPH % 8 % (24-48); MEAN CORPUSCULAR HEMOGLOBIN 31 pg (25-35); MEAN CORPUSCULAR HGB CONC 34 g/dL (31-37); MEAN CORPUSCULAR VOLUME 92 fL (79-100); MONO # 0.7 x10^3/uL (0.0-1.1); MONO % 6 % (0-9); NEUT # 10.3 x10^3uL (1.8-7.7); NEUT % 84 % (31-73); PLATELET COUNT 215 x10^3/uL (140-400); RED BLOOD COUNT 4.98 x10^6/uL (4.30-5.70); RED CELL DISTRIBUTION WIDTH 15.4 % (11.5-14.5); WHITE BLOOD COUNT 12.3 x10^3/uL (4.0-11.0)
--- NOTE | 2017-03-22 13:01 | RAD ---
CT of the abdomen and pelvis without contrast, 03/22/2017: History: Colonic distention Multidetector CT imaging was performed following oral ingestion of contrast. No IV contrast was administered for this exam. The unopacified liver is unremarkable. No gallbladder abnormality is seen. The pancreas is unremarkable. The spleen is of normal size. A horseshoe kidney is present. There is no evidence of renal obstruction. The abdominal aorta is of normal caliber. No abdominal or pelvic adenopathy is seen. There is a moderate size hiatal hernia. The stomach and small bowel loops are not dilated. A small amount of oral contrast material has passed into the cecum. The appendix is visualized and is unremarkable. There is a moderate amount of stool and gas in the right colon extending down to the proximal sigmoid level. There is a short segment of the proximal sigmoid colon which is not dilated. Much of the sigmoid colon distal to this level in the anterior aspect of the pelvis does demonstrate gaseous distention up to approximately 9 cm. The distal sigmoid colon and rectum are decompressed containing only a small amount of stool. The transition point in the distal sigmoid region is best seen on axial image 92 of series #2. No obstructing mass is seen at this level. There appears to be a "split wall sign" at this level, suggesting a partial colonic twist. There is no evidence of mural edema or pneumatosis. No free fluid or free air is evident in the abdomen or pelvis. IMPRESSION: 1. Moderate amount of retained stool in the proximal colon with gaseous distention down to the distal sigmoid level as described above. An apparent "split wall sign"is evident at this transition point. This has been described as an early stage of sigmoid volvulus or untwisting of a volvulus. GI consultation is suggested for consideration of rectal tube placement. 2. Moderate sized hiatal hernia. 3. Horseshoe kidney PQRS Compliance Statement: One or more of the following individualized dose reduction techniques were utilized for this examination: 1. Automated exposure control 2. Adjustment of the mA and/or kV according to patient size 3. Use of iterative reconstruction technique
[2017-03-22 13:03] LABS: ALBUMIN 3.7 g/dL (3.4-5.0); ALBUMIN/GLOBULIN RATIO 1.2 (1.0-1.7); CALCIUM 9.3 mg/dL (8.5-10.1); GFR 89.6; MAGNESIUM 2.2 mg/dL (1.8-2.4); TOTAL BILIRUBIN 0.4 mg/dL (0.2-1.0); TOTAL PROTEIN 6.8 g/dL (6.4-8.2)
[2017-03-22] MEDS ORDERED: ACET325T9 PO (13:40)
[2017-03-22] MEDS ORDERED: DIVA500T17 PO (13:41)
[2017-03-22] MEDS ORDERED: MAG355OR17 PO (13:41)
[2017-03-22] MEDS ORDERED: INSU100V13 SQ (13:41)
[2017-03-22] MEDS ORDERED: MAGN2400 PO (13:42)
[2017-03-22] MEDS ORDERED: METH29OI TP (13:43)
[2017-03-22] MEDS ORDERED: BUPR-192 PO (13:44)
[2017-03-22] MEDS ORDERED: PANT40TA3 PO (13:44)
--- NOTE | 2017-03-22 13:50 | PDOC ---
OBJECTIVE: Problems: Problems Medical Problems: (1) Dementia with behavioral disturbance 2. abdominal pain with possible sigmoid volvulus vs obstruction 3. leucocytosis 4. constipation Status: Acute OTHER PROBLEMS intellectual disabilities disabilities, history of subarachnoid hemorrhage, history of seizures, history of subdural hemorrhage, gastroesophageal reflux disease, anxiety, arthritis and bursitis. 71 YEAR OLD MALE DEWAYNE HAS BEEN A PATIENT ON THE [facility] SINCE 03/08. tODAY NURSING STAFF RREPORTS DISTENDED ABDOMEN AND COMPLAINTS OF CONSTIPATION. HE RECEIVED MOM LAST NIGHT AND HAD A SMALL BM THIS AM. Vital Signs: Vital Signs Date Time Temp Pulse Resp B/P (MAP) Pulse Ox O2 Delivery O2 Flow Rate FiO2 03/22/17 08:16 66 125/62 03/22/17 06:13 98.0 20 94 03/21/17 17:32 Room Air I & O Intake and Output 03/23/17 07:00 Intake Total 360 ml Balance 360 ml Intake Oral 360 ml # Bowel Movements 1 Labs: Laboratory Tests Test 03/20/17 19:06 03/21/17 07:18 03/21/17 11:59 03/21/17 19:03 Glucose (Fingerstick) 156 mg/dL (70-99) 111 mg/dL (70-99) 95 mg/dL (70-99) 112 mg/dL (70-99) Test 03/22/17 07:49 03/22/17 12:42 Glucose (Fingerstick) 89 mg/dL (70-99) White Blood Count 12.3 x10^3/uL (4.0-11.0) Red Blood Count 4.98 x10^6/uL (4.30-5.70) Hemoglobin 15.4 g/dL (13.0-17.5) Hematocrit 46.0 % (39.0-53.0) Mean Corpuscular Volume 92 fL (79-100) Mean Corpuscular Hemoglobin 31 pg (25-35) Mean Corpuscular Hemoglobin Concent 34 g/dL (31-37) Red Cell Distribution Width 15.4 % (11.5-14.5) Platelet Count 215 x10^3/uL (140-400) Neutrophils (%) (Auto) 84 % (31-73) Lymphocytes (%) (Auto) 8 % (24-48) Monocytes (%) (Auto) 6 % (0-9) Eosinophils (%) (Auto) 1 % (0-3) Basophils (%) (Auto) 1 % (0-3) Neutrophils # (Auto) 10.3 x10^3uL (1.8-7.7) Lymphocytes # (Auto) 1.0 x10^3/uL (1.0-4.8) Monocytes # (Auto) 0.7 x10^3/uL (0.0-1.1) Eosinophils # (Auto) 0.2 x10^3/uL (0.0-0.7) Basophils # (Auto) 0.1 x10^3/uL (0.0-0.2) Sodium Level 140 mmol/L (136-145) Potassium Level 4.0 mmol/L (3.5-5.1) Chloride Level 103 mmol/L (98-107) Carbon Dioxide Level 32 mmol/L (21-32) Anion Gap 5 (6-14) Blood Urea Nitrogen 16 mg/dL (8-26) Creatinine 1.0 mg/dL (0.7-1.3) Estimated GFR (Cockcroft-Gault) 89.6 BUN/Creatinine Ratio 16 (6-20) Glucose Level 95 mg/dL (70-99) Calcium Level 9.3 mg/dL (8.5-10.1) Magnesium Level 2.2 mg/dL (1.8-2.4) Total Bilirubin 0.4 mg/dL (0.2-1.0) Aspartate Amino Transf (AST/SGOT) 11 U/L (15-37) Alanine Aminotransferase (ALT/SGPT) 21 U/L (16-63) Alkaline Phosphatase 91 U/L (46-116) Total Protein 6.8 g/dL (6.4-8.2) Albumin 3.7 g/dL (3.4-5.0) Albumin/Globulin Ratio 1.2 (1.0-1.7) Physical Exam: EXAMINED IN HIS ROOM WITH A NURSE PRESENT. ALERT, ANSWERING QUESTIONS, HARD OF HEARING FACE FLUSHED, THROAT CLEAR, NECK SUPPLE LUNGS CLEAR TO AUSCULTATION CVRRR ABDOMEN GROSSLY DISTENDED , TYMPANIC, WITH HIGH PITCHED BOWEL SOUNDS, UNABLE TO PALPATE ANY MASSES DUE TO DISTENTION. EXTREMETIES WITH TR OF EDEMA ASSESSMENT: SIGMOID VOLVULUS VS OBSTRUCTION LEUKOCYTOSIS INTELLECTUAL DISABILITY HEARING IMPAIRED IMPULSE CONTROL DISORDER HISTORY OF SUBARRACHNOID HEMMORRHAGE IMPULSE CONTROL DISORDER ANXIETY FALL RISK PLAN: DISCUSSED WITH DR. NUNES WHO RECOMMENDS TRANSFER TO [facility] FOR HIGHER LEVEL OF CARE WHERE SURGERY AND GI ARE AVAILABLE. WILL ATTEMPT TO GIVE FLAGYL AND LEVAQUIN BUT IV ACCESS HAS BEEN DIFFICULT. DR. SINGLETON HAS ACCEPTED NANCI MASSEY DO Mar 22, 2017 13:50
[2017-03-22] MEDS ORDERED: IV NORMAL SALINE 1,000ML 1,000 ML ONE (14:18)
[2017-03-22 15:03] VITALS: BP 128/68
--- NOTE | 2017-03-22 20:06 | PDOC ---
Exam Trey Demential Exam: Trey Note: Please also refer to the separate dictated note~for this date of service dictated separately.~Patient seen individually. Discussed the patient with Nursing staff reviewed the chart.~Reviewed interim history and current functioning. Reviewed vital signs,~Labs/ Radiology~and current medications noted below. Continue current treatment with the changes noted in the dictated addendum note Assessment: Vital Signs: Vital Signs Date Time Temp Pulse Resp B/P (MAP) Pulse Ox O2 Delivery O2 Flow Rate FiO2 03/22/17 15:03 100.0 99 20 128/68 (88) 94 03/21/17 17:32 Room Air I&O Intake and Output 03/23/17 07:00 Intake Total 360 ml Balance 360 ml Intake Oral 360 ml # Bowel Movements 1 Labs: Laboratory Tests Test 03/22/17 07:49 03/22/17 12:42 Glucose (Fingerstick) 89 mg/dL (70-99) White Blood Count 12.3 x10^3/uL (4.0-11.0) #H Red Blood Count 4.98 x10^6/uL (4.30-5.70) Hemoglobin 15.4 g/dL (13.0-17.5) Hematocrit 46.0 % (39.0-53.0) Mean Corpuscular Volume 92 fL (79-100) Mean Corpuscular Hemoglobin 31 pg (25-35) Mean Corpuscular Hemoglobin Concent 34 g/dL (31-37) Red Cell Distribution Width 15.4 % (11.5-14.5) H Platelet Count 215 x10^3/uL (140-400) Neutrophils (%) (Auto) 84 % (31-73) H Lymphocytes (%) (Auto) 8 % (24-48) L Monocytes (%) (Auto) 6 % (0-9) Eosinophils (%) (Auto) 1 % (0-3) Basophils (%) (Auto) 1 % (0-3) Neutrophils # (Auto) 10.3 x10^3uL (1.8-7.7) H Lymphocytes # (Auto) 1.0 x10^3/uL (1.0-4.8) Monocytes # (Auto) 0.7 x10^3/uL (0.0-1.1) Eosinophils # (Auto) 0.2 x10^3/uL (0.0-0.7) Basophils # (Auto) 0.1 x10^3/uL (0.0-0.2) Sodium Level 140 mmol/L (136-145) Potassium Level 4.0 mmol/L (3.5-5.1) Chloride Level 103 mmol/L (98-107) Carbon Dioxide Level 32 mmol/L (21-32) Anion Gap 5 (6-14) L Blood Urea Nitrogen 16 mg/dL (8-26) Creatinine 1.0 mg/dL (0.7-1.3) Estimated GFR (Cockcroft-Gault) 89.6 BUN/Creatinine Ratio 16 (6-20) Glucose Level 95 mg/dL (70-99) Calcium Level 9.3 mg/dL (8.5-10.1) Magnesium Level 2.2 mg/dL (1.8-2.4) Total Bilirubin 0.4 mg/dL (0.2-1.0) Aspartate Amino Transferase (AST) 11 U/L (15-37) L Alanine Aminotransferase (ALT) 21 U/L (16-63) Alkaline Phosphatase 91 U/L (46-116) Total Protein 6.8 g/dL (6.4-8.2) Albumin 3.7 g/dL (3.4-5.0) Albumin/Globulin Ratio 1.2 (1.0-1.7) Current Medications: Meds: Current Medications Acetaminophen (Tylenol) 650 mg PRN Q6HRS PRN PO PAIN / TEMP; Start 03/08/17 at 21:45; Stop 03/22/17 at 16:19; Status DC Multi-Ingredient Ointment (Analgesic Boring) 1 fabrizio PRN QID PRN TP MUSCLE PAIN; Start 03/08/17 at 21:45; Stop 03/22/17 at 16:19; Status DC Al Hydroxide/Mg Hydroxide (Mylanta Plus Xs) 15 ml PRN AFTMEALHC PRN PO DYSPEPSIA; Start 03/08/17 at 21:45; Stop 03/22/17 at 16:19; Status DC Magnesium Hydroxide (Milk Of Magnesia) 2,400 mg PRN QHS PRN PO CONSTIPATION Last administered on 03/21/17t 17:13; Start 03/08/17 at 21:45; Stop 03/22/17 at 16 :19; Status DC Bupropion HCl (Wellbutrin Sr) 100 mg DAILY PO Last administered on 03/14/17 08 :55; Start 03/09/17 at 09:00; Stop 03/14/17 at 18:22; Status DC Buspirone HCl (Buspar) 5 mg BID PO Last administered on 03/22/17 08:14; Start 03/08/17 at 23:00; Stop 03/22/17 at 16:19; Status DC Olanzapine (ZyPREXA) 2.5 mg BID PO Last administered on 03/15/17 08:07; Start 03/08/17 at 23:00; Stop 03/15/17 at 13:12; Status DC Docusate Sodium (Colace) 100 mg BID PO Last administered on 03/22/17 08:14; Start 03/08/17 at 23:00; Stop 03/22/17 at 16:19; Status DC Fluticasone Propionate (Flonase) 1 spray BID NS Last administered on 03/22/17 08:17; Start 03/08/17 at 23:00; Stop 03/22/17 at 16:19; Status DC Levetiracetam (Keppra) 1,000 mg BID PO Last administered on 03/22/17 08:15; Start 03/08/17 at 23:00; Stop 03/22/17 at 16:19; Status DC Metoprolol Tartrate (Lopressor) 25 mg BID PO Last administered on 03/22/17 08: 16; Start 03/08/17 at 23:00; Stop 03/22/17 at 16:19; Status DC Primidone (Mysoline) 150 mg BID PO Last administered on 03/22/17 08:15; Start 03/08/17 at 23:00; Stop 03/22/17 at 16:19; Status DC Sennosides (Senna) 8.6 mg BID PO Last administered on 03/22/17 08:15; Start at 23:00; Stop 03/22/17 at 16:19; Status DC Insulin Detemir (Levemir) 5 units QHS SQ Last administered on 03/11/17 19:55; Start 03/08/17 at 23:00; Stop 03/12/17 at 08:43; Status DC Vitamin D (Vitamin D3) 1,000 unit DAILY PO Last administered on 03/21/17 07:56 ; Start 03/09/17 at 09:00; Stop 03/21/17 at 15:46; Status DC Modafinil (Provigil) 100 mg DAILY PO Last administered on 03/22/17 08:14; Start 03/09/17 at 09:00; Stop 03/22/17 at 16:19; Status DC Multivitamins/ Calcium (Thera-M Plus) 1 tab DAILY PO Last administered on 08:15; Start 03/09/17 at 09:00; Stop 03/22/17 at 16:19; Status DC Pantoprazole Sodium (Protonix) 40 mg DAILYAC PO Last administered on 03/22/17 08:15; Start 03/09/17 at 08:45; Stop 03/22/17 at 16:19; Status DC Polyethylene Glycol (miraLAX) 17 gm DAILY PO Last administered on 03/22/17 08: 14; Start 03/09/17 at 09:00; Stop 03/22/17 at 16:19; Status DC Insulin Detemir (Levemir) 3 units QHS SQ Last administered on 03/21/17 19:39; Start 03/12/17 at 21:00; Stop 03/22/17 at 16:19; Status DC Divalproex Sodium (Depakote Sprinkles) 125 mg TID PO Last administered on 08:04; Start 03/13/17 at 21:00; Stop 03/16/17 at 10:40; Status DC Bupropion HCl (Wellbutrin Xl) 150 mg DAILY PO Last administered on 03/22/17 08: 17; Start 03/15/17 at 09:00; Stop 03/22/17 at 16:19; Status DC Olanzapine (ZyPREXA) 2.5 mg QHS PO Last administered on 03/21/17 19:32; Start 03/15/17 at 21:00; Stop 03/22/17 at 16:19; Status DC Divalproex Sodium (Depakote Er) 500 mg QHS PO Last administered on 03/20/17 19: 35; Start 03/16/17 at 21:00; Stop 03/21/17 at 16:09; Status DC Vitamin D (Vitamin D3) 2,000 unit BIDACLD PO Last administered on 03/22/17 08: 15; Start 03/21/17 at 16:30; Stop 03/22/17 at 16:19; Status DC Divalproex Sodium (Depakote Er) 750 mg QHS PO Last administered on 03/21/17 19: 34; Start 03/21/17 at 21:00; Stop 03/22/17 at 16:19; Status DC Iohexol (Omnipaque 240 Mg/ml) 50 ml 1X ONCE PO ; Start 03/22/17 at 10:30; Stop 03/22/17 at 10:31; Status DC Iohexol (Omnipaque 300 Mg/ml) 75 ml 1X ONCE IV ; Start 03/22/17 at 10:30; Stop 03/22/17 at 10:31; Status DC Levofloxacin/ Dextrose 150 ml @ 150 mls/hr Q24H IV ; Start 03/22/17 at 14:00; Stop 03/22/17 at 16:19; Status DC Metronidazole 100 ml @ 100 mls/hr Q8H IV Last administered on 03/22/17 15:00; Start 03/22/17 at 15:00; Stop 03/22/17 at 16:19; Status DC Sodium Chloride 1,000 ml @ As Directed STK-MED ONCE .ROUTE Last administered on 03/22/17 14:18; Start 03/22/17 at 14:18; Stop 03/22/17 at 14:19; Status DC Active Scripts Active Reported Bupropion Xl (Bupropion Hcl) 150 Mg Tab.er.24h 150 Mg PO DAILY Protonix (Pantoprazole Sodium) 40 Mg Tablet.dr 40 Mg PO DAILYAC Analgesic Boring (Methyl Salicylate/Menthol) 28 Gm Oint...g. 1 Applic TP PRN QID PRN Milk Of Magnesia (Magnesium Hydroxide) 2,400 Mg/10 Ml Oral.susp 2,400 Mg PO PRN QHS PRN Advanced Antacid Liquid (Mag Hydrox/Al Hydrox/Simeth) 355 Ml Oral.susp 15 Ml PO PRN AFTMEALHC PRN Levemir (Insulin Detemir) 100 Unit/1 Ml Vial 3 Unit SQ QHS Divalproex Sodium Er (Divalproex Sodium) 500 Mg Tab.er.24h 750 Mg PO QHS Tylenol (Acetaminophen) 325 Mg Tablet 650 Mg PO PRN Q6HRS PRN Zyprexa (Olanzapine) 2.5 Mg Tablet 2.5 Mg PO QHS Senna (Sennosides) 8.6 Mg Tablet 8.6 Mg PO BID Primidone 50 Mg Tablet 150 Mg PO BID [polyethylene glycol] 17 Gm PO DAILY Multiple Vitamin (Multivitamin With Minerals) 1 Each Tablet 1 Tab PO DAILY Modafinil 100 Mg Tablet 100 Mg PO DAILY Metoprolol Tartrate 25 Mg Tablet 25 Mg PO BID Levetiracetam 500 Mg Tablet 1,000 Mg PO BID Fluticasone Propionate Nasal [place] (Fluticasone Propionate) 16 Gm [place].susp 1 [place] NS BID Docusate Sodium 100 Mg Capsule 100 Mg PO BID Vitamin D3 (Cholecalciferol (Vitamin D3)) 1,000 Unit Tablet 2,000 Unit PO DAILY Buspirone Hcl 5 Mg Tablet 5 Mg PO BID Diagnosis: Problems: (1) Anxiety disorder (2) Impulse control disorder (3) Psychosis, atypical (4) Schizoaffective disorder (5) Bipolar affective disorder, mixed AYAKA FERNANDEZ MD Mar 22, 2017 20:06
--- NOTE | 2017-03-23 00:46 | PN ---
DATE: SUBJECTIVE: This is a 71-year-old male, who [facility] and nursing staff asked me to come see him because of the distended abdomen. Yesterday, he was given some milk of magnesia and did have a bowel movement this morning. A KUB though this morning shows distended loops of bowel and read out as possible sigmoid volvulus. He did have a moderate amount of retained stool in the right colon. The patient himself has some intellectual disability and is hard of hearing, but does admit to some mild to moderate abdominal pain. OBJECTIVE: VITAL SIGNS: Temperature is 98, pulse 66, respirations 20, pulse ox 94% on room air, and blood pressure 125/62. GENERAL: His is warm. HEENT: His tongue is moist. He is hard of hearing. LUNGS: Clear. CARDIOVASCULAR: Regular rhythm and rate. Not tachycardic. ABDOMEN: Markedly distended. There are some scant bowel sounds, tympanic and mildly tender to palpation, but because of distention, could not palpate any masses. EXTREMITIES: Without edema. LABORATORY DATA: Pending. An abdominal and pelvis CT also pending. ASSESSMENT: Distended abdomen with possible sigmoid volvulus or bowel obstruction. PLAN: Await results. Keep n.p.o. Await the results of the CT and evaluate and check labs. NANCI MASSEY DO DR: BRITT/varun JOB#: [id number] / [id number]
--- NOTE | 2017-03-23 01:11 | PN ---
DATE: 03/21/2017 This late entry 03/21/2017 covers elements not covered in my initial note of 03/21/2017. SUBJECTIVE: I met with the patient in the evening of 03/21/2017. The patient spends much time in bed, makes vague threatening statements to staff, redirects, and when staff confront him on this, he states that he was just joking. REVIEW OF SYSTEMS: Ambulation impaired. No CV, , pulmonary, eye, ENT system symptoms on review. Reliability poor. MENTAL STATUS EXAM: Oriented to himself. Insight, judgment, recent and remote memory, attention, concentration, fund of knowledge poor, consistent with his diagnosis mentioned in my initial note. IMPRESSION: Bipolar 1 disorder, mixed with psychotic features, intellectual disability, posttraumatic dementia. PLAN: Continue Wellbutrin-XL 150 mg a day, BuSpar 5 mg b.i.d., Zyprexa 2.5 mg at bedtime, Depakote ER 500 mg at bedtime, level subtherapeutic at 19, we will increase to 750 at bedtime. Check labs level in 3 days. Review of drug interactions, risk/benefit ratio favors no further change. AYAKA FERNANDEZ MD DR: CAMERON/varun JOB#: [id number] / [id number]
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
== END 2017-03-22 16:18 | disposition short-term general hospital (02) | DRG 885 ==
LOC: ER 18:20 → UNDOADMIN 21:11 → GEROPSY 21:11
PROVIDERS: ADMIT Psychiatry & Neurology Psychiatry; ATTEND Psychiatry & Neurology Psychiatry
DX: F31.64 Bipolar disorder, current episode mixed, severe, with psychotic features (principal); K56.2 Volvulus; F02.81 Dementia in other diseases classified elsewhere, unspecified severity, with behavioral disturbance; G20 Parkinson's disease; E11.9 Type 2 diabetes mellitus without complications; F79 Unspecified intellectual disabilities; D72.829 Elevated white blood cell count, unspecified; F41.9 Anxiety disorder, unspecified; F63.9 Impulse disorder, unspecified; F42.9 Obsessive-compulsive disorder, unspecified; H91.90 Unspecified hearing loss, unspecified ear; K21.9 Gastro-esophageal reflux disease without esophagitis; M19.90 Unspecified osteoarthritis, unspecified site; K59.00 Constipation, unspecified; Z66 Do not resuscitate; Z79.899 Other long term (current) drug therapy; Z82.0 Family history of epilepsy and other diseases of the nervous system; Z91.81 History of falling; Z90.49 Acquired absence of other specified parts of digestive tract; Z88.8 Allergy status to other drugs, medicaments and biological substances
CPT/HCPCS: 36415; 51701; 74000; 74176; 80053; 80061; 80164; 81001; 82306; 82607; 82947; 83036; 83540; 83550; 83735; 84436; 84443; 84480; 85025; 86592; 86593; 87086; 93005; J1815; J3490; 97110; 97116; 97535; 99285-25; J7030

== ENCOUNTER 2017-04-19 09:52 | Inpatient (IN) | payer MEDICARE, OTHER ==
[~2017-04-19] VITALS: Ht 170.2 cm; Wt 99.8 kg
[~2017-04-19 09:52] MED LIST: ACET325T9 PO; BUPR-192 PO; BUPR100T8 PO; BUSP5TAB PO; CHOL10003 PO; DIVA500T17 PO; DOCU100C28 PO; FLUT16SP21 NS; INSU100I13 SQ; INSU100V13 SQ; LEVE500T6 PO; MAG355OR17 PO; MAGN2400 PO; METH29OI TP; METO25TA4 PO; MODA100T2 PO; MULT-460 PO; OLAN2.5T3 PO; OMEP20CA9 PO; PANT40TA3 PO; PRIM50TA PO; SENN-79 PO; polyethylene glycol PO
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
[2017-04-19 10:40] LABS: BACTERIA,URINE FEW /HPF (0-FEW); BILIRUBIN,URINE NEG (NEG); CLARITY,URINE HAZY; COLOR,URINE AMBER; GLUCOSE,URINE NEG (NEG); NITRITE,URINE NEG (NEG); SQUAMOUS EPITHELIAL CELL,UR FEW /LPF; UROBILINOGEN,URINE 1 mg/dL (0.2 mg/dL)
[2017-04-19 10:44] LABS: BASO # 0.1 x10^3/uL (0.0-0.2); BASO % 1 % (0-3); EOS # 0.3 x10^3/uL (0.0-0.7); EOS % 5 % (0-3); HEMATOCRIT 46.4 % (39.0-53.0); HEMOGLOBIN 16.1 g/dL (13.0-17.5); LYMPH # 0.8 x10^3/uL (1.0-4.8); LYMPH % 14 % (24-48); MEAN CORPUSCULAR HEMOGLOBIN 33 pg (25-35); MEAN CORPUSCULAR HGB CONC 35 g/dL (31-37); MEAN CORPUSCULAR VOLUME 94 fL (79-100); MONO # 0.6 x10^3/uL (0.0-1.1); MONO % 11 % (0-9); NEUT % 70 % (31-73); PLATELET COUNT 248 x10^3/uL (140-400); RED BLOOD COUNT 4.96 x10^6/uL (4.30-5.70); RED CELL DISTRIBUTION WIDTH 15.7 % (11.5-14.5); WHITE BLOOD COUNT 5.8 x10^3/uL (4.0-11.0)
[2017-04-19 10:51] LABS: CALCIUM 8.9 mg/dL (8.5-10.1); GFR 89.6; POTASSIUM 4.1 mmol/L (3.5-5.1)
[2017-04-19 11:07] LABS: VAL ACID 18 mcg/mL (50-100)
--- NOTE | 2017-04-19 12:01 | EKG ---
[address] [address] Test Date: 2017-04-19 Test Time: 10:55:28 Pat Name: ISABELLA HUTCHINSON Department: Room: Gender: M Manager Front Office: [place] : 1945 Requested By: KADY GOLD Order Number: [id number] Reading MD: Measurements Intervals [place] Rate: 72 P: 30 PA: 180 QRS: -91 QRSD: 96 T: 25 QT: 400 QTc: 440 Interpretive Statements SINUS RHYTHM ABNORMAL RIGHT SUPERIOR AXIS DEVIATION R-S TRANSITION ZONE IN V LEADS DISPLACED TO THE LEFT S1,S2,S3 PATTERN LEFT ANTERIOR FASCICULAR BLOCK ABNORMAL ECG RI6.01 No previous ECG available for comparison
[2017-04-19] MEDS ORDERED: MAG HYDROX/AL HYDROX/SIMETH 30 ML ORAL.SUSP PO PRN (12:30)
[2017-04-19] MEDS ORDERED: METHYL SALICYLATE/MENTHOL TOPICAL OINTMENT 29GM TUBE. TP PRN ×2 (12:30→13:30)
[2017-04-19] MEDS ORDERED: ACETAMINOPHEN 325 MG TABLET PO PRN ×2 (12:30→13:30)
[2017-04-19] MEDS ORDERED: FLUV100T2 PO (13:17)
[2017-04-19] MEDS ORDERED: NON FORMULARY ITEM (Magnesium Hydroxide (Milk Of Magnesia) 2,400 MG) PO PRN (13:30)
[2017-04-19 13:31] VITALS: BP 106/65
[2017-04-19 16:21] VITALS: BP 105/73
[2017-04-19] MEDS: INSULIN ASPART 300 UNITS/3 ML INSULN.PEN SQ SCH ×2 (16:30→20:22)
[2017-04-19] MEDS: levETIRAcetam 500 MG TABLET PO SCH (20:21)
[2017-04-19] MEDS: FLUTICASONE 50MCG/NASAL SPRAY 16GM BOTTLE. NS SCH (20:21)
[2017-04-19] MEDS: DIVALPROEX ER 250 MG TAB.ER.24H. PO SCH (20:21)
[2017-04-19] MEDS: METOPROLOL TART IMMED RELEASE 25 MG TABLET PO SCH (20:21)
[2017-04-19] MEDS: busPIRone 5 MG TABLET. PO SCH (20:21)
[2017-04-19] MEDS: DOCUSATE SODIUM 100 MG CAPSULE PO SCH (20:21)
[2017-04-19] MEDS: PRIMIDONE 50 MG TABLET PO SCH (20:22)
[2017-04-19] MEDS: MODAFINIL 100 MG TABLET PO SCH (20:22)
[2017-04-19] MEDS: SENNOSIDES 8.6 MG TABLET PO SCH (20:22)
[2017-04-19] MEDS: INSULIN DETEMIR 300 UNITS/3 ML INSULN.PEN. SQ SCH (20:23)
--- NOTE | 2017-04-19 20:51 | PDOC ---
Exam Trey Demential Exam: Trey Note: Please also refer to the separate dictated note~for this date of service dictated separately.~Patient seen individually. Discussed the patient with Nursing staff reviewed the chart.~Reviewed interim history and current functioning. Reviewed vital signs,~Labs/ Radiology~and current medications noted below. Continue current treatment with the changes noted in the dictated addendum note Assessment: Vital Signs: Vital Signs Date Time Temp Pulse Resp B/P (MAP) Pulse Ox O2 Delivery O2 Flow Rate FiO2 04/19/17 20:21 74 105/73 04/19/17 16:21 98.2 16 94 Room Air I&O Intake and Output 04/20/17 07:00 Intake Total 480 ml Output Total 300 ml Balance 180 ml Intake Oral 480 ml Output Urine Total 300 ml Labs: Laboratory Tests Test 04/19/17 10:10 04/19/17 10:22 Urine Collection Type Void Urine Color [place] Urine Clarity Hazy Urine pH 6.5 Urine Specific [place] 1.020 Urine Protein Neg (NEG-TRACE) Urine Glucose (UA) Neg mg/dL (NEG) Urine Ketones (Stick) 15 mg/dL (NEG) Urine Blood Neg (NEG) Urine Nitrite Neg (NEG) Urine Bilirubin Neg (NEG) Urine Urobilinogen Dipstick 1 mg/dL (0.2 mg/dL) Urine Leukocyte Esterase Trace (NEG) Urine RBC 1-2 /HPF (0-2) Urine WBC 11-20 /HPF (0-4) Urine Squamous Epithelial Cells Few /LPF Urine Bacteria Few /HPF (0-FEW) Urine Mucus Slight /LPF White Blood Count 5.8 x10^3/uL (4.0-11.0) Red Blood Count 4.96 x10^6/uL (4.30-5.70) Hemoglobin 16.1 g/dL (13.0-17.5) Hematocrit 46.4 % (39.0-53.0) Mean Corpuscular Volume 94 fL (79-100) Mean Corpuscular Hemoglobin 33 pg (25-35) Mean Corpuscular Hemoglobin Concent 35 g/dL (31-37) Red Cell Distribution Width 15.7 % (11.5-14.5) H Platelet Count 248 x10^3/uL (140-400) Neutrophils (%) (Auto) 70 % (31-73) Lymphocytes (%) (Auto) 14 % (24-48) L Monocytes (%) (Auto) 11 % (0-9) H Eosinophils (%) (Auto) 5 % (0-3) H Basophils (%) (Auto) 1 % (0-3) Neutrophils # (Auto) 4.0 x10^3uL (1.8-7.7) Lymphocytes # (Auto) 0.8 x10^3/uL (1.0-4.8) L Monocytes # (Auto) 0.6 x10^3/uL (0.0-1.1) Eosinophils # (Auto) 0.3 x10^3/uL (0.0-0.7) Basophils # (Auto) 0.1 x10^3/uL (0.0-0.2) Sodium Level 142 mmol/L (136-145) Potassium Level 4.1 mmol/L (3.5-5.1) Chloride Level 104 mmol/L (98-107) Carbon Dioxide Level 31 mmol/L (21-32) Anion Gap 7 (6-14) Blood Urea Nitrogen 18 mg/dL (8-26) Creatinine 1.0 mg/dL (0.7-1.3) Estimated GFR (Cockcroft-Gault) 89.6 Glucose Level 109 mg/dL (70-99) H Calcium Level 8.9 mg/dL (8.5-10.1) Valproic Acid Level 18 mcg/mL (50-100) L Valproic Acid Last Dose Date 04/18/2017 Valproic Acid Last Dose Time 2100 Current Medications: Meds: Current Medications Acetaminophen (Tylenol) 650 mg PRN Q6HRS PRN PO PAIN / TEMP; Start 04/19/17 at 12:30; Status Cancel Multi-Ingredient Ointment (Analgesic [place]) 1 fabrizio PRN QID PRN TP MUSCLE PAIN; Start 04/19/17 at 12:30; Status Cancel Al Hydroxide/Mg Hydroxide (Mylanta Plus Xs) 15 ml PRN AFTMEALHC PRN PO DYSPEPSIA; Start 04/19/17 at 12:30 Magnesium Hydroxide (Milk Of Magnesia) 2,400 mg PRN QHS PRN PO CONSTIPATION; Start 04/19/17 at 12:30 Influenza Virus Vaccine Quadrival (Fluarix Quad [id number] Syringe) 0.5 ml ONCE ONCE VAX IM ; Start 04/20/17 at 09:00; Stop 04/20/17 at 09:01 Pneumococcal Polyvalent Vaccine (Pneumovax 23) 0.5 ml ONCE ONCE VAX IM ; Start 04/20/17 at 09:00; Stop 04/20/17 at 09:01 Buspirone HCl (Buspar) 5 mg BID PO Last administered on 04/19/17 20:21; Start 04/19/17 at 21:00 Divalproex Sodium (Depakote Er) 750 mg QHS PO Last administered on 04/19/17 20 :21; Start 04/19/17 at 21:00 Fluvoxamine Maleate (Luvox) 100 mg QHS PO Last administered on 04/19/17 20:22 ; Start 04/19/17 at 21:00 Levetiracetam (Keppra) 1,000 mg BID PO Last administered on 04/19/17 20:21; Start 04/19/17 at 21:00 Olanzapine (ZyPREXA) 2.5 mg DAILY PO ; Start 04/20/17 at 09:00 Primidone (Mysoline) 150 mg BID PO Last administered on 04/19/17 20:22; Start 04/19/17 at 21:00 Insulin Aspart (NovoLOG) 0-5 UNITS QIDACHS SQ ; Start 04/19/17 at 16:30 Acetaminophen (Tylenol) 650 mg PRN Q6HRS PRN PO PAIN / TEMP; Start 04/19/17 at 13:30 Vitamin D (Vitamin D3) 2,000 unit DAILY PO ; Start 04/20/17 at 09:00 Docusate Sodium (Colace) 100 mg BID PO Last administered on 04/19/17 20:21; Start 04/19/17 at 21:00 Fluticasone Propionate (Flonase) 1 spray BID NS Last administered on 04/19/17 20:21; Start 04/19/17 at 21:00 Multi-Ingredient Ointment (Analgesic [place]) 1 fabrizio PRN QID PRN TP MUSCLE PAIN; Start 04/19/17 at 13:30 Metoprolol Tartrate (Lopressor) 25 mg BID PO Last administered on 04/19/17 20: 21; Start 04/19/17 at 21:00 Modafinil (Provigil) 100 mg QHS PO Last administered on 04/19/17 20:22; Start 04/19/17 at 21:00 Pantoprazole Sodium (Protonix) 40 mg DAILYAC PO ; Start 04/20/17 at 07:30 Sennosides (Senna) 8.6 mg BID PO Last administered on 04/19/17 20:22; Start 04/19/17 at 21:00 Insulin Detemir (Levemir) 3 units QHS SQ Last administered on 04/19/17 20:23; Start 04/19/17 at 21:00 Non-Formulary Medication 2,400 mg PRN QHS PRN PO CONSTIPATION; Start 04/19/17 at 13:30; Status UNV Multivitamins/ Calcium (Thera-M Plus) 1 tab DAILY PO ; Start 04/20/17 at 09:00 Polyethylene Glycol (miraLAX) 17 gm DAILY PO ; Start 04/20/17 at 09:00 Active Scripts Active Reported Fluvoxamine Maleate 100 Mg Tablet 100 Mg PO QHS Bupropion Xl (Bupropion Hcl) 150 Mg Tab.er.24h 150 Mg PO DAILY Protonix (Pantoprazole Sodium) 40 Mg Tablet.dr 40 Mg PO DAILYAC Analgesic [place] (Methyl Salicylate/Menthol) 28 Gm Oint...g. 1 Applic TP PRN QID PRN Milk Of Magnesia (Magnesium Hydroxide) 2,400 Mg/10 Ml Oral.susp 2,400 Mg PO PRN QHS PRN Advanced Antacid Liquid (Mag Hydrox/Al Hydrox/Simeth) 355 Ml Oral.susp 15 Ml PO PRN AFTMEALHC PRN Levemir (Insulin Detemir) 100 Unit/1 Ml Vial 3 Unit SQ QHS Divalproex Sodium Er (Divalproex Sodium) 500 Mg Tab.er.24h 750 Mg PO QHS Tylenol (Acetaminophen) 325 Mg Tablet 650 Mg PO PRN Q6HRS PRN Zyprexa (Olanzapine) 2.5 Mg Tablet 2.5 Mg PO DAILY Senna (Sennosides) 8.6 Mg Tablet 8.6 Mg PO BID Primidone 50 Mg Tablet 150 Mg PO BID [polyethylene glycol] 17 Gm PO DAILY Multiple Vitamin (Multivitamin With Minerals) 1 Each Tablet 1 Tab PO DAILY Modafinil 100 Mg Tablet 100 Mg PO QHS Metoprolol Tartrate 25 Mg Tablet 25 Mg PO BID Levetiracetam 500 Mg Tablet 1,000 Mg PO BID Fluticasone Propionate Nasal [place] (Fluticasone Propionate) 16 Gm [place].susp 1 [place] NS BID Docusate Sodium 100 Mg Capsule 100 Mg PO BID Vitamin D3 (Cholecalciferol (Vitamin D3)) 1,000 Unit Tablet 2,000 Unit PO DAILY Buspirone Hcl 5 Mg Tablet 5 Mg PO BID Diagnosis: Problems: (1) Anxiety disorder (2) Impulse control disorder (3) Psychosis, atypical (4) Schizoaffective disorder (5) Bipolar affective disorder, mixed (6) Borderline intellectual disability (7) Encounter for medical screening examination AYAKA FERNANDEZ MD Apr 19, 2017 20:51
[2017-04-20 06:13] VITALS: BP 112/67
--- NOTE | 2017-04-20 07:08 | HP ---
ADMIT DATE: 04/19/2017 PSYCHIATRIC ADMISSION HISTORY/EVALUATION This late entry date of service, 04/19/2017, covers elements, not covered in my initial note of 04/19/2017. SUMMARY OF PROGRESS: I met with the patient in the evening of 04/19/2017 for this assessment and I had previously talked to the nursing staff on 2 or 3 occasions as part of the admission process reviewing the admission history, recurrence of symptoms since he was last discharged from us a short while back. IDENTIFYING DATA: The patient is a 71-year-old male who returns back to from [facility], referred by his primary care physician, Dr. Leary, after the patient was found masturbating in front of people, became agitated when staff redirect him, urinating on staff. Behaviors were deemed dangerous, out of control, unmanageable in the [place] [facility], risk to other patients and staff members. He had failed prior inpatient stay with us in February and March 2017, report back for inpatient psychiatric stabilization with bipolar disorder within the context of his intellectual disability. CHIEF COMPLAINT: "I don't know." The patient responded after I questioned him about circumstances prompting admission. He professes not knowing what he did, though I believe he does know this. HISTORY OF PRESENT ILLNESS: The patient has a history of bipolar disorder with periods of elation, racing thoughts alternating with being depressed and psychotic symptoms, ____ dangerous, aggressive, disruptive behaviors. He also has intellectual disability, perhaps mild to moderate. He has been residing at [facility] for some time. Behaviors have been worsening recently and he was hospitalized with us, stabilized to return back to the facility on Depakote for his mood swings, Luvox for his obsessive behaviors, BuSpar for anxiety. He appears to have failed this. No active suicidal or homicidal ideation. PAST PSYCHIATRIC HISTORY: As above. MEDICAL HISTORY: Positive for chronic constipation, GERD, repeated falls, obsessive compulsive disorder, Parkinson's disease, diabetes mellitus, osteoarthritis, sigmoid volvulus. The patient developed this sigmoid volvulus during his last inpatient stay with us and was transferred to [facility] once medically stabilized, he was sent back to the [place] [facility]. DRUG ALLERGIES: AUGMENTIN. ACCU-CHEKS: A.C. and A.H. DIET: Mechanical soft. CODE STATUS: DNR. CURRENT PSYCHOTROPICS: Depakote ER 750 at bedtime, Luvox 100 mg at bedtime, BuSpar 5 mg b.i.d., valproic acid level on 04/19/2017 is 18. FAMILY HISTORY: Noncontributory. SOCIAL HISTORY: No history of alcohol or drug abuse. Physical, sexual or elder abuse other than behaviors noted above. He is not known to be a perpetrator. MENTAL STATUS EXAMINATION: The patient was seen individually evening of 04/19/2017. He seemed to remember me. Speech has the typical matilde somewhat of a singsong manner. He appears somewhat irritable, dismissive of circumstances prompting admission, intellect consistent with his diagnosis of probable mild to moderate intellectual disability. Speech otherwise coherent. Abstraction fair, computation impaired, language function intact. Attention span short. He denies active suicidal or homicidal ideation. Denies active psychotic symptoms. LABORATORY DATA: Reviewed. REVIEW OF SYSTEMS: Ambulation impaired. No CV, , pulmonary, eye, ENT system symptoms on review. IMPRESSION: Bipolar 1 disorder, mixed with psychotic features, severe. Intellectual disability, anxiety disorder, unspecified; impulse control disorder, unspecified. Rest diagnoses as above. PLAN: Admit to Geropsychiatry Unit at [facility]. I will see the patient daily individually from a psychiatric standpoint, medical followup per Dr. Kamara/Dr. Vee. Continue current psychotropics. May need to increase Depakote to reach a therapeutic level. May also need to add an atypical antipsychotic, Seroquel or Risperdal depending on the baseline assessment. We will make further decisions post baseline assessment. AYAKA FERNANDEZ MD DR: CAMERON/varun JOB#: [id number] / [id number]
[2017-04-20 07:14] LABS: VAL ACID 27 mcg/mL (50-100)
[2017-04-20] MEDS: INSULIN ASPART 300 UNITS/3 ML INSULN.PEN SQ SCH ×4 (07:30→21:00)
[2017-04-20] MEDS: CHOLECALCIFEROL (VITAMIN D3) 1,000 UNIT TABLET PO SCH (08:13)
[2017-04-20] MEDS: levETIRAcetam 500 MG TABLET PO SCH ×2 (08:13→20:21)
[2017-04-20] MEDS: POLYETHYLENE GLYCOL 3350 17 GM PACKET. PO SCH (08:13)
[2017-04-20] MEDS: MULTIVITAMIN with MINERAL TABLET. PO SCH (08:14)
[2017-04-20] MEDS: PANTOPRAZOLE 40 MG TABLET. PO SCH (08:14)
[2017-04-20] MEDS: DOCUSATE SODIUM 100 MG CAPSULE PO SCH ×2 (08:14→20:21)
[2017-04-20] MEDS: PRIMIDONE 50 MG TABLET PO SCH ×2 (08:14→20:24)
[2017-04-20] MEDS: METOPROLOL TART IMMED RELEASE 25 MG TABLET PO SCH ×2 (08:14→20:23)
[2017-04-20] MEDS: SENNOSIDES 8.6 MG TABLET PO SCH ×2 (08:14→20:21)
[2017-04-20] MEDS: busPIRone 5 MG TABLET. PO SCH ×2 (08:14→20:21)
[2017-04-20] MEDS: FLUTICASONE 50MCG/NASAL SPRAY 16GM BOTTLE. NS SCH ×2 (08:15→20:24)
[2017-04-20] MEDS: OLANZapine 2.5 MG TABLET PO SCH (08:15)
[2017-04-20] MEDS ORDERED: FLU VACC QS2017-18 (36MOS+)/PF 0.5 ML SYRINGE. VAX IM ONE (09:00)
[2017-04-20] MEDS ORDERED: PNEUMOC CONJ VACC 23-VALENT 0.5 ML VIAL. VAX IM ONE (09:00)
--- NOTE | 2017-04-20 11:51 | HP ---
ADMIT DATE: 04/19/2017 MEDICAL HISTORY AND PHYSICAL FOR [facility] REASON FOR ADMISSION [facility]: This is a 71-year-old male who had a previous admission to the [facility] on 03/09/2017. He is coming from [facility] where he has been masturbating in front of people, urinating on staff and being aggressive. As a matter of fact, he was observed in the [place] just after I saw him with his hands down his pants. PAST MEDICAL HISTORY: [facility] February to March 2017, also had a stay at [facility] for very severe constipation and a suspected sigmoid volvulus which did not require surgery, bipolar disorder, anxiety, intellectual disability, constipation, GERD, falls, obsessive-compulsive disorder, Parkinson's disease, osteoarthritis, diabetes, hypertension, also had a subarachnoid hemorrhage and subdural hemorrhage with acute respiratory failure requiring mechanical ventilation in July 2016. PAST SURGICAL HISTORY: Hernia repair and tonsillectomy. FAMILY HISTORY: Unknown. His brother is his DPOA. SOCIAL HISTORY: Single, no children. Resides in a nursing facility. Never smoked. Alcohol use: None. ALLERGIES: Amoxicillin and Augmentin. MEDICATIONS: Reviewed and are available on the MAR. REVIEW OF SYSTEMS: As per last visit, the patient continues to complain of ongoing fatigue, otherwise had no other specific complaints. OBJECTIVE: VITAL SIGNS: Blood pressure 112/67, pulse 71, pulse ox 94% on room air, respiratory rate 18, temperature 97.8, height 67 inches, weight 229 pounds. He is down 3 pounds from the last admission. GENERAL: Face is somewhat mariano. He is alert, tired, in bed. HEENT: His eyes were clear. His nose was patent. His tongue was moist. NECK: Supple. LUNGS: Clear to auscultation. CARDIOVASCULAR: Regular rhythm and rate. ABDOMEN: Soft, protuberant, nontender. EXTREMITIES: Without edema. NEUROLOGIC: He has a fine tremor of both arms. Otherwise, cranial nerves are intact. LABORATORY DATA: Unremarkable CBC, chemistry. Nonfasting glucose of 109. Folic acid level 27. Urinalysis 11-20 white cells and trace leukocyte esterase. ASSESSMENT: Intellectual disability with behavior disturbance, anxiety, fall risk, chronic constipation, Parkinson's disease, history of subarachnoid hemorrhage and subdural hemorrhage -- present on admission, gastroesophageal reflux disease, morbid obesity and fatigue. PLAN: Follow along with Dr. Rogers. Wait for the rest of his labs and treat his medical conditions. NANCI MASSEY DO DR: BRITT/varun JOB#: [id number] / [id number]
[2017-04-20 14:20] LABS: THYROID STIM HORMONE (TSH) 3.327 uIU/mL (0.358-3.740)
[2017-04-20 16:10] VITALS: BP 111/70
[2017-04-20] MEDS: INSULIN DETEMIR 300 UNITS/3 ML INSULN.PEN. SQ SCH (20:20)
[2017-04-20] MEDS: DIVALPROEX ER 250 MG TAB.ER.24H. PO SCH (20:21)
[2017-04-20] MEDS: QUEtiapine 50 MG TABLET. PO SCH (20:21)
[2017-04-20] MEDS: MODAFINIL 100 MG TABLET PO SCH (20:24)
--- NOTE | 2017-04-20 20:53 | PDOC ---
Exam Trey Demential Exam: Trey Note: Please also refer to the separate dictated note~for this date of service dictated separately.~Patient seen individually. Discussed the patient with Nursing staff reviewed the chart.~Reviewed interim history and current functioning. Reviewed vital signs,~Labs/ Radiology~and current medications noted below. Continue current treatment with the changes noted in the dictated addendum note Assessment: Vital Signs: Vital Signs Date Time Temp Pulse Resp B/P (MAP) Pulse Ox O2 Delivery O2 Flow Rate FiO2 04/20/17 20:23 61 111/70 04/20/17 16:10 97.8 20 90 04/20/17 06:13 Room Air I&O Intake and Output 04/21/17 07:00 Intake Total 900 ml Balance 900 ml Intake Oral 900 ml # Bowel Movements 1 Labs: Laboratory Tests Test 04/20/17 06:43 04/20/17 07:20 04/20/17 11:32 04/20/17 16:28 Magnesium Level 2.2 mg/dL (1.8-2.4) Iron Level 103 ug/dL (65-175) Total Iron Binding Capacity 342 ug/dL (250-450) Iron Saturation 30 % (15-34) Triglycerides Level 98 mg/dL (0-150) Cholesterol Level 179 mg/dL (0-200) LDL Cholesterol, Calculated 117 mg/dL (0-100) H VLDL Cholesterol, Calculated 19 mg/dL (0-40) Non-HDL Cholesterol Calculated 136 mg/dL (0-129) H HDL Cholesterol 43 mg/dL (40-60) Cholesterol/HDL Ratio 4.0 Vitamin B12 Level 700 pg/mL (247-911) 25-Hydroxy Vitamin D Total Pending Thyroid Stimulating Hormone (TSH) 3.327 uIU/mL (0.358-3.740) Thyroxine (T4) 6.0 ug/dL (4.5-12.0) Total Triiodothyronine (TT3) 99 ng/dL (71-180) Valproic Acid Level 27 mcg/mL (50-100) L Valproic Acid Last Dose Date 04/19/2017 Valproic Acid Last Dose Time 2100 Glucose (Fingerstick) 116 mg/dL (70-99) H 128 mg/dL (70-99) H 108 mg/dL (70-99) H Test 04/20/17 19:11 Glucose (Fingerstick) 100 mg/dL (70-99) H Current Medications: Meds: Current Medications Acetaminophen (Tylenol) 650 mg PRN Q6HRS PRN PO PAIN / TEMP; Start 04/19/17 at 12:30; Status Cancel Multi-Ingredient Ointment (Analgesic [place]) 1 fabrizio PRN QID PRN TP MUSCLE PAIN; Start 04/19/17 at 12:30; Status Cancel Al Hydroxide/Mg Hydroxide (Mylanta Plus Xs) 15 ml PRN AFTMEALHC PRN PO DYSPEPSIA; Start 04/19/17 at 12:30 Magnesium Hydroxide (Milk Of Magnesia) 2,400 mg PRN QHS PRN PO CONSTIPATION; Start 04/19/17 at 12:30 Influenza Virus Vaccine Quadrival (Fluarix Quad [id number] Syringe) 0.5 ml ONCE ONCE VAX IM Last administered on 04/20/17 13:28; Start 04/20/17 at 09:00; Stop 04/20/17 at 09:01; Status DC Pneumococcal Polyvalent Vaccine (Pneumovax 23) 0.5 ml ONCE ONCE VAX IM Last administered on 04/20/17 13:29; Start 04/20/17 at 09:00; Stop 04/20/17 at 09:01 ; Status DC Buspirone HCl (Buspar) 5 mg BID PO Last administered on 04/20/17 20:21; Start 04/19/17 at 21:00 Divalproex Sodium (Depakote Er) 750 mg QHS PO Last administered on 04/20/17 20 :21; Start 04/19/17 at 21:00 Fluvoxamine Maleate (Luvox) 100 mg QHS PO Last administered on 04/20/17 20:24 ; Start 04/19/17 at 21:00 Levetiracetam (Keppra) 1,000 mg BID PO Last administered on 04/20/17 20:21; Start 04/19/17 at 21:00 Olanzapine (ZyPREXA) 2.5 mg DAILY PO Last administered on 04/20/17 08:15; Start 04/20/17 at 09:00 Primidone (Mysoline) 150 mg BID PO Last administered on 04/20/17 20:24; Start 04/19/17 at 21:00 Insulin Aspart (NovoLOG) 0-5 UNITS QIDACHS SQ ; Start 04/19/17 at 16:30 Acetaminophen (Tylenol) 650 mg PRN Q6HRS PRN PO PAIN / TEMP; Start 04/19/17 at 13:30 Vitamin D (Vitamin D3) 2,000 unit DAILY PO Last administered on 04/20/17 08:13 ; Start 04/20/17 at 09:00 Docusate Sodium (Colace) 100 mg BID PO Last administered on 04/20/17 20:21; Start 04/19/17 at 21:00 Fluticasone Propionate (Flonase) 1 spray BID NS Last administered on 04/20/17 20:24; Start 04/19/17 at 21:00 Multi-Ingredient Ointment (Analgesic [place]) 1 fabrizio PRN QID PRN TP MUSCLE PAIN; Start 04/19/17 at 13:30 Metoprolol Tartrate (Lopressor) 25 mg BID PO Last administered on 04/20/17 20: 23; Start 04/19/17 at 21:00 Modafinil (Provigil) 100 mg QHS PO Last administered on 04/20/17 20:24; Start 04/19/17 at 21:00 Pantoprazole Sodium (Protonix) 40 mg DAILYAC PO Last administered on 04/20/17 08:14; Start 04/20/17 at 07:30 Sennosides (Senna) 8.6 mg BID PO Last administered on 04/20/17 20:21; Start 04/19/17 at 21:00 Insulin Detemir (Levemir) 3 units QHS SQ Last administered on 04/20/17 20:20; Start 04/19/17 at 21:00 Non-Formulary Medication 2,400 mg PRN QHS PRN PO CONSTIPATION; Start 04/19/17 at 13:30; Status UNV Multivitamins/ Calcium (Thera-M Plus) 1 tab DAILY PO Last administered on 08:14; Start 04/20/17 at 09:00 Polyethylene Glycol (miraLAX) 17 gm DAILY PO Last administered on 04/20/17 08: 13; Start 04/20/17 at 09:00 Quetiapine Fumarate (SEROquel) 50 mg QHS PO Last administered on 04/20/17t 20: 21; Start 04/20/17 at 21:00 Active Scripts Active Reported Fluvoxamine Maleate 100 Mg Tablet 100 Mg PO QHS Bupropion Xl (Bupropion Hcl) 150 Mg Tab.er.24h 150 Mg PO DAILY Protonix (Pantoprazole Sodium) 40 Mg Tablet.dr 40 Mg PO DAILYAC Analgesic [place] (Methyl Salicylate/Menthol) 28 Gm Oint...g. 1 Applic TP PRN QID PRN Milk Of Magnesia (Magnesium Hydroxide) 2,400 Mg/10 Ml Oral.susp 2,400 Mg PO PRN QHS PRN Advanced Antacid Liquid (Mag Hydrox/Al Hydrox/Simeth) 355 Ml Oral.susp 15 Ml PO PRN AFTMEALHC PRN Levemir (Insulin Detemir) 100 Unit/1 Ml Vial 3 Unit SQ QHS Divalproex Sodium Er (Divalproex Sodium) 500 Mg Tab.er.24h 750 Mg PO QHS Tylenol (Acetaminophen) 325 Mg Tablet 650 Mg PO PRN Q6HRS PRN Zyprexa (Olanzapine) 2.5 Mg Tablet 2.5 Mg PO DAILY Senna (Sennosides) 8.6 Mg Tablet 8.6 Mg PO BID Primidone 50 Mg Tablet 150 Mg PO BID [polyethylene glycol] 17 Gm PO DAILY Multiple Vitamin (Multivitamin With Minerals) 1 Each Tablet 1 Tab PO DAILY Modafinil 100 Mg Tablet 100 Mg PO QHS Metoprolol Tartrate 25 Mg Tablet 25 Mg PO BID Levetiracetam 500 Mg Tablet 1,000 Mg PO BID Fluticasone Propionate Nasal [place] (Fluticasone Propionate) 16 Gm [place].susp 1 [place] NS BID Docusate Sodium 100 Mg Capsule 100 Mg PO BID Vitamin D3 (Cholecalciferol (Vitamin D3)) 1,000 Unit Tablet 2,000 Unit PO DAILY Buspirone Hcl 5 Mg Tablet 5 Mg PO BID Diagnosis: Problems: (1) Anxiety disorder (2) Impulse control disorder (3) Psychosis, atypical (4) Schizoaffective disorder (5) Bipolar affective disorder, mixed (6) Encounter for medical screening examination (7) Borderline intellectual disability AYAKA FERNANDEZ MD Apr 20, 2017 20:53
[2017-04-21 03:21] LABS: HEMOGLOBIN A1C 5.7 % (4.8-5.6)
[2017-04-21 05:56] VITALS: BP 111/71
[2017-04-21] MEDS: INSULIN ASPART 300 UNITS/3 ML INSULN.PEN SQ SCH ×4 (07:30→21:00)
[2017-04-21] MEDS: SENNOSIDES 8.6 MG TABLET PO SCH ×2 (08:51→20:48)
[2017-04-21] MEDS: CHOLECALCIFEROL (VITAMIN D3) 1,000 UNIT TABLET PO SCH (08:51)
[2017-04-21] MEDS: OLANZapine 2.5 MG TABLET PO SCH (08:51)
[2017-04-21] MEDS: MULTIVITAMIN with MINERAL TABLET. PO SCH (08:51)
[2017-04-21] MEDS: levETIRAcetam 500 MG TABLET PO SCH ×2 (08:51→20:47)
[2017-04-21] MEDS: busPIRone 5 MG TABLET. PO SCH ×2 (08:51→20:48)
[2017-04-21] MEDS: PRIMIDONE 50 MG TABLET PO SCH ×2 (08:51→20:48)
[2017-04-21] MEDS: METOPROLOL TART IMMED RELEASE 25 MG TABLET PO SCH ×2 (08:51→20:54)
[2017-04-21] MEDS: DOCUSATE SODIUM 100 MG CAPSULE PO SCH ×2 (08:51→20:48)
[2017-04-21] MEDS: POLYETHYLENE GLYCOL 3350 17 GM PACKET. PO SCH (08:51)
[2017-04-21] MEDS: FLUTICASONE 50MCG/NASAL SPRAY 16GM BOTTLE. NS SCH ×2 (08:52→20:57)
[2017-04-21] MEDS: PANTOPRAZOLE 40 MG TABLET. PO SCH (08:52)
[2017-04-21 15:34] VITALS: BP 113/71
[2017-04-21] MEDS: DIVALPROEX ER 250 MG TAB.ER.24H. PO SCH (20:47)
[2017-04-21] MEDS: QUEtiapine 50 MG TABLET. PO SCH (20:47)
[2017-04-21] MEDS: INSULIN DETEMIR 300 UNITS/3 ML INSULN.PEN. SQ SCH (20:56)
[2017-04-21] MEDS: MODAFINIL 100 MG TABLET PO SCH (20:59)
--- NOTE | 2017-04-21 21:02 | PDOC ---
Exam Trey Demential Exam: Trey Note: Please also refer to the separate dictated note~for this date of service dictated separately.~Patient seen individually. Discussed the patient with Nursing staff reviewed the chart.~Reviewed interim history and current functioning. Reviewed vital signs,~Labs/ Radiology~and current medications noted below. Continue current treatment with the changes noted in the dictated addendum note Assessment: Vital Signs: Vital Signs Date Time Temp Pulse Resp B/P (MAP) Pulse Ox O2 Delivery O2 Flow Rate FiO2 04/21/17 20:54 64 117/75 04/21/17 15:34 97.7 18 97 04/21/17 05:56 Room Air I&O Intake and Output 04/22/17 07:00 Intake Total 1080 ml Balance 1080 ml Intake Oral 1080 ml Labs: Laboratory Tests Test 04/21/17 07:06 04/21/17 11:19 04/21/17 16:01 04/21/17 19:21 Glucose (Fingerstick) 99 mg/dL (70-99) 105 mg/dL (70-99) H 214 mg/dL (70-99) H 201 mg/dL (70-99) H Current Medications: Meds: Current Medications Acetaminophen (Tylenol) 650 mg PRN Q6HRS PRN PO PAIN / TEMP; Start 04/19/17 at 12:30; Status Cancel Multi-Ingredient Ointment (Analgesic [place]) 1 fabrizio PRN QID PRN TP MUSCLE PAIN; Start 04/19/17 at 12:30; Status Cancel Al Hydroxide/Mg Hydroxide (Mylanta Plus Xs) 15 ml PRN AFTMEALHC PRN PO DYSPEPSIA; Start 04/19/17 at 12:30 Magnesium Hydroxide (Milk Of Magnesia) 2,400 mg PRN QHS PRN PO CONSTIPATION; Start 04/19/17 at 12:30 Influenza Virus Vaccine Quadrival (Fluarix Quad [id number] Syringe) 0.5 ml ONCE ONCE VAX IM Last administered on 04/20/17 13:28; Start 04/20/17 at 09:00; Stop 04/20/17 at 09:01; Status DC Pneumococcal Polyvalent Vaccine (Pneumovax 23) 0.5 ml ONCE ONCE VAX IM Last administered on 04/20/17 13:29; Start 04/20/17 at 09:00; Stop 04/20/17 at 09:01 ; Status DC Buspirone HCl (Buspar) 5 mg BID PO Last administered on 04/21/17 20:48; Start 04/19/17 at 21:00 Divalproex Sodium (Depakote Er) 750 mg QHS PO Last administered on 04/21/17 20 :47; Start 04/19/17 at 21:00 Fluvoxamine Maleate (Luvox) 100 mg QHS PO Last administered on 04/21/17 20:48 ; Start 04/19/17 at 21:00 Levetiracetam (Keppra) 1,000 mg BID PO Last administered on 04/21/17 20:47; Start 04/19/17 at 21:00 Olanzapine (ZyPREXA) 2.5 mg DAILY PO Last administered on 04/21/17 08:51; Start 04/20/17 at 09:00; Stop 04/21/17 at 18:33; Status DC Primidone (Mysoline) 150 mg BID PO Last administered on 04/21/17 20:48; Start 04/19/17 at 21:00 Insulin Aspart (NovoLOG) 0-5 UNITS QIDACHS SQ Last administered on 04/21/17 17 :27; Start 04/19/17 at 16:30 Acetaminophen (Tylenol) 650 mg PRN Q6HRS PRN PO PAIN / TEMP; Start 04/19/17 at 13:30 Vitamin D (Vitamin D3) 2,000 unit DAILY PO Last administered on 04/21/17 08:51 ; Start 04/20/17 at 09:00 Docusate Sodium (Colace) 100 mg BID PO Last administered on 04/21/17 20:48; Start 04/19/17 at 21:00 Fluticasone Propionate (Flonase) 1 spray BID NS Last administered on 04/21/17 20:57; Start 04/19/17 at 21:00 Multi-Ingredient Ointment (Analgesic [place]) 1 fabrizio PRN QID PRN TP MUSCLE PAIN; Start 04/19/17 at 13:30 Metoprolol Tartrate (Lopressor) 25 mg BID PO Last administered on 04/21/17 20: 54; Start 04/19/17 at 21:00 Modafinil (Provigil) 100 mg QHS PO Last administered on 04/21/17 20:59; Start 04/19/17 at 21:00 Pantoprazole Sodium (Protonix) 40 mg DAILYAC PO Last administered on 04/21/17 08:52; Start 04/20/17 at 07:30 Sennosides (Senna) 8.6 mg BID PO Last administered on 04/21/17 20:48; Start 04/19/17 at 21:00 Insulin Detemir (Levemir) 3 units QHS SQ Last administered on 04/21/17 20:56; Start 04/19/17 at 21:00 Non-Formulary Medication 2,400 mg PRN QHS PRN PO CONSTIPATION; Start 04/19/17 at 13:30; Status UNV Multivitamins/ Calcium (Thera-M Plus) 1 tab DAILY PO Last administered on 08:51; Start 04/20/17 at 09:00 Polyethylene Glycol (miraLAX) 17 gm DAILY PO Last administered on 04/21/17 08: 51; Start 04/20/17 at 09:00 Quetiapine Fumarate (SEROquel) 50 mg QHS PO Last administered on 04/21/17 20: 47; Start 04/20/17 at 21:00 Medroxyprogesterone Acetate (Provera) 5 mg DAILY PO ; Start 04/22/17 at 09:00 Active Scripts Active Reported Fluvoxamine Maleate 100 Mg Tablet 100 Mg PO QHS Bupropion Xl (Bupropion Hcl) 150 Mg Tab.er.24h 150 Mg PO DAILY Protonix (Pantoprazole Sodium) 40 Mg Tablet.dr 40 Mg PO DAILYAC Analgesic [place] (Methyl Salicylate/Menthol) 28 Gm Oint...g. 1 Applic TP PRN QID PRN Milk Of Magnesia (Magnesium Hydroxide) 2,400 Mg/10 Ml Oral.susp 2,400 Mg PO PRN QHS PRN Advanced Antacid Liquid (Mag Hydrox/Al Hydrox/Simeth) 355 Ml Oral.susp 15 Ml PO PRN AFTMEALHC PRN Levemir (Insulin Detemir) 100 Unit/1 Ml Vial 3 Unit SQ QHS Divalproex Sodium Er (Divalproex Sodium) 500 Mg Tab.er.24h 750 Mg PO QHS Tylenol (Acetaminophen) 325 Mg Tablet 650 Mg PO PRN Q6HRS PRN Zyprexa (Olanzapine) 2.5 Mg Tablet 2.5 Mg PO DAILY Senna (Sennosides) 8.6 Mg Tablet 8.6 Mg PO BID Primidone 50 Mg Tablet 150 Mg PO BID [polyethylene glycol] 17 Gm PO DAILY Multiple Vitamin (Multivitamin With Minerals) 1 Each Tablet 1 Tab PO DAILY Modafinil 100 Mg Tablet 100 Mg PO QHS Metoprolol Tartrate 25 Mg Tablet 25 Mg PO BID Levetiracetam 500 Mg Tablet 1,000 Mg PO BID Fluticasone Propionate Nasal [place] (Fluticasone Propionate) 16 Gm [place].susp 1 [place] NS BID Docusate Sodium 100 Mg Capsule 100 Mg PO BID Vitamin D3 (Cholecalciferol (Vitamin D3)) 1,000 Unit Tablet 2,000 Unit PO DAILY Buspirone Hcl 5 Mg Tablet 5 Mg PO BID Diagnosis: Problems: (1) Anxiety disorder (2) Impulse control disorder (3) Psychosis, atypical (4) Schizoaffective disorder (5) Bipolar affective disorder, mixed (6) Encounter for medical screening examination (7) Borderline intellectual disability AYAKA FERNANDEZ MD Apr 21, 2017 21:02
--- NOTE | 2017-04-21 21:40 | PN ---
DATE: 04/20/2017 PSYCHIATRIC PROGRESS NOTE This late entry 04/20/2017 covers elements, not covered in my initial note of 04/20/2017. SUBJECTIVE: I met with the patient evening of 04/20/2017 and the patient was staffed at a treatment team meeting with the entire team morning of 04/20/2017. I reviewed his history, diagnosis, inappropriate masturbating at the long-term amongst other things, prompting this admission. I processed this with inpatient, seems oblivious to all of this. REVIEW OF SYSTEMS: Ambulation impaired. No CV, , pulmonary, eye, ENT system symptoms on review. Reliability poor. MENTAL STATUS EXAM: Oriented to himself and situation. Speech moderate latency, often responses monosyllabic. Abstraction fair, computation impaired, language function intact. Attention span short. LABORATORY DATA: Reviewed. IMPRESSION: Unchanged from initial note. PLAN: Continue Depakote ER 750 at bedtime. We will be checking CBC, CMP, valproic acid level in 2 todays. Maintain Luvox 100 mg at bedtime, BuSpar 5 b.i.d., Zyprexa 2.5 mg daily p.r.n. Start Seroquel schedule 50 mg p.o. at bedtime, may consider medroxyprogesterone or Provera oral if inappropriate sexual behaviors persist. Reviewed drug interactions. Risk/benefit ratio favors no further change. AYAKA FERNANDEZ MD DR: CAMERON/varun JOB#: [id number] / [id number]
[2017-04-21] MEDS ORDERED: DIVA250T PO (23:20)
[2017-04-21] MEDS ORDERED: MAGN400O7 PO (23:20)
[2017-04-21] MEDS ORDERED: POLY119P4 PO (23:20)
[2017-04-22 05:59] VITALS: BP 125/57
[2017-04-22] MEDS: INSULIN ASPART 300 UNITS/3 ML INSULN.PEN SQ SCH ×4 (07:36→19:23)
[2017-04-22] MEDS: levETIRAcetam 500 MG TABLET PO SCH ×2 (07:50→19:23)
[2017-04-22] MEDS: DOCUSATE SODIUM 100 MG CAPSULE PO SCH ×2 (07:50→19:21)
[2017-04-22] MEDS: PANTOPRAZOLE 40 MG TABLET. PO SCH (07:50)
[2017-04-22] MEDS: busPIRone 5 MG TABLET. PO SCH ×2 (07:50→19:23)
[2017-04-22] MEDS: FLUTICASONE 50MCG/NASAL SPRAY 16GM BOTTLE. NS SCH ×2 (07:50→19:24)
[2017-04-22] MEDS: POLYETHYLENE GLYCOL 3350 17 GM PACKET. PO SCH (07:52)
[2017-04-22] MEDS: PRIMIDONE 50 MG TABLET PO SCH ×2 (07:53→19:22)
[2017-04-22] MEDS: MULTIVITAMIN with MINERAL TABLET. PO SCH (07:54)
[2017-04-22] MEDS: SENNOSIDES 8.6 MG TABLET PO SCH ×2 (07:54→19:22)
[2017-04-22] MEDS: CHOLECALCIFEROL (VITAMIN D3) 1,000 UNIT TABLET PO SCH (07:54)
[2017-04-22] MEDS: medroxyPROGESTERone 5 MG TABLET PO SCH (07:56)
[2017-04-22] MEDS: METOPROLOL TART IMMED RELEASE 25 MG TABLET PO SCH ×2 (09:00→19:22)
[2017-04-22 11:52] VITALS: BP 117/72
--- NOTE | 2017-04-22 13:47 | PN ---
DATE: 04/21/2017 PSYCHIATRIC PROGRESS NOTE This is a late entry 04/21/2017, covers elements not covered in my initial note of 04/21/2017. SUBJECTIVE: I met with the patient the evening of 04/21/2017. The patient has not been masturbating in public on 04/21/2017 as he was on 04/20/2017. He is still somewhat flirtatious with female nursing staff, compliant with his medications. REVIEW OF SYSTEMS: Ambulation impaired, in wheelchair. No CV, , pulmonary, eye, ENT system symptoms on review. Reliability poor. MENTAL STATUS EXAM: Oriented to himself and situation. Speech moderate latency, has typical matilde to it. Abstraction fair, computation impaired, language function intact, attention span short. Mood and affect still somewhat labile at times. LABORATORY DATA: Reviewed. IMPRESSION: Unchanged from initial note. PLAN: Continue psychotropics mentioned in my initial note. Start Provera 5 mg a day for his sexually inappropriate aggressive behaviors. He is on two atypical antipsychotics Zyprexa and Seroquel and we will stop the Zyprexa to minimize potential side effects. Review drug contractions. Risk/benefit ratio favors no further change. AYAKA FERNANDEZ MD DR: CAMERON/varun JOB#: [id number] / [id number]
[2017-04-22 16:04] VITALS: BP 115/74
[2017-04-22] MEDS: MODAFINIL 100 MG TABLET PO SCH (19:22)
[2017-04-22] MEDS: QUEtiapine 50 MG TABLET. PO SCH (19:23)
[2017-04-22] MEDS: DIVALPROEX ER 250 MG TAB.ER.24H. PO SCH (19:23)
[2017-04-22] MEDS: INSULIN DETEMIR 300 UNITS/3 ML INSULN.PEN. SQ SCH (19:26)
--- NOTE | 2017-04-22 22:46 | PDOC ---
Exam Trey Demential Exam: Trey Note: Please also refer to the separate dictated note~for this date of service dictated separately.~Patient seen individually. Discussed the patient with Nursing staff reviewed the chart.~Reviewed interim history and current functioning. Reviewed vital signs,~Labs/ Radiology~and current medications noted below. Continue current treatment with the changes noted in the dictated addendum note Assessment: Vital Signs: Vital Signs Date Time Temp Pulse Resp B/P (MAP) Pulse Ox O2 Delivery O2 Flow Rate FiO2 04/22/17 19:22 68 115/74 04/22/17 16:04 97.5 20 93 04/22/17 05:59 Room Air I&O Intake and Output 04/23/17 07:00 Intake Total 1200 ml Balance 1200 ml Intake Oral 1200 ml Labs: Laboratory Tests Test 04/22/17 07:07 04/22/17 11:45 04/22/17 16:28 04/22/17 19:03 Glucose (Fingerstick) 117 mg/dL (70-99) H 125 mg/dL (70-99) H 123 mg/dL (70-99) H 153 mg/dL (70-99) H Current Medications: Meds: Current Medications Acetaminophen (Tylenol) 650 mg PRN Q6HRS PRN PO PAIN / TEMP; Start 04/19/17 at 12:30; Status Cancel Multi-Ingredient Ointment (Analgesic [place]) 1 fabrizio PRN QID PRN TP MUSCLE PAIN; Start 04/19/17 at 12:30; Status Cancel Al Hydroxide/Mg Hydroxide (Mylanta Plus Xs) 15 ml PRN AFTMEALHC PRN PO DYSPEPSIA; Start 04/19/17 at 12:30 Magnesium Hydroxide (Milk Of Magnesia) 2,400 mg PRN QHS PRN PO CONSTIPATION; Start 04/19/17 at 12:30 Influenza Virus Vaccine Quadrival (Fluarix Quad [id number] Syringe) 0.5 ml ONCE ONCE VAX IM Last administered on 04/20/17 13:28; Start 04/20/17 at 09:00; Stop 04/20/17 at 09:01; Status DC Pneumococcal Polyvalent Vaccine (Pneumovax 23) 0.5 ml ONCE ONCE VAX IM Last administered on 04/20/17 13:29; Start 04/20/17 at 09:00; Stop 04/20/17 at 09:01 ; Status DC Buspirone HCl (Buspar) 5 mg BID PO Last administered on 04/22/17 19:23; Start 04/19/17 at 21:00 Divalproex Sodium (Depakote Er) 750 mg QHS PO Last administered on 04/22/17 19 :23; Start 04/19/17 at 21:00 Fluvoxamine Maleate (Luvox) 100 mg QHS PO Last administered on 04/22/17 19:22 ; Start 04/19/17 at 21:00 Levetiracetam (Keppra) 1,000 mg BID PO Last administered on 04/22/17 19:23; Start 04/19/17 at 21:00 Olanzapine (ZyPREXA) 2.5 mg DAILY PO Last administered on 04/21/17 08:51; Start 04/20/17 at 09:00; Stop 04/21/17 at 18:33; Status DC Primidone (Mysoline) 150 mg BID PO Last administered on 04/22/17 19:22; Start 04/19/17 at 21:00 Insulin Aspart (NovoLOG) 0-5 UNITS QIDACHS SQ Last administered on 04/21/17 17 :27; Start 04/19/17 at 16:30 Acetaminophen (Tylenol) 650 mg PRN Q6HRS PRN PO PAIN / TEMP; Start 04/19/17 at 13:30 Vitamin D (Vitamin D3) 2,000 unit DAILY PO Last administered on 04/22/17 07:54 ; Start 04/20/17 at 09:00 Docusate Sodium (Colace) 100 mg BID PO Last administered on 04/22/17 19:21; Start 04/19/17 at 21:00 Fluticasone Propionate (Flonase) 1 spray BID NS Last administered on 04/22/17 19:24; Start 04/19/17 at 21:00 Multi-Ingredient Ointment (Analgesic [place]) 1 fabrizio PRN QID PRN TP MUSCLE PAIN; Start 04/19/17 at 13:30 Metoprolol Tartrate (Lopressor) 25 mg BID PO Last administered on 04/22/17 19: 22; Start 04/19/17 at 21:00 Modafinil (Provigil) 100 mg QHS PO Last administered on 04/22/17 19:22; Start 04/19/17 at 21:00 Pantoprazole Sodium (Protonix) 40 mg DAILYAC PO Last administered on 04/22/17 07:50; Start 04/20/17 at 07:30 Sennosides (Senna) 8.6 mg BID PO Last administered on 04/22/17 19:22; Start 04/19/17 at 21:00 Insulin Detemir (Levemir) 3 units QHS SQ Last administered on 04/22/17 19:26; Start 04/19/17 at 21:00 Non-Formulary Medication 2,400 mg PRN QHS PRN PO CONSTIPATION; Start 04/19/17 at 13:30; Status UNV Multivitamins/ Calcium (Thera-M Plus) 1 tab DAILY PO Last administered on 07:54; Start 04/20/17 at 09:00 Polyethylene Glycol (miraLAX) 17 gm DAILY PO Last administered on 04/22/17 07: 52; Start 04/20/17 at 09:00 Quetiapine Fumarate (SEROquel) 50 mg QHS PO Last administered on 04/22/17 19: 23; Start 04/20/17 at 21:00 Medroxyprogesterone Acetate (Provera) 5 mg DAILY PO Last administered on 07:56; Start 04/22/17 at 09:00 Active Scripts Active Reported Miralax (Polyethylene Glycol 3350) 119 Gm Powder 17 Gm PO DAILY Milk Of Magnesia (Magnesium Hydroxide) 400 Mg/5 Ml Oral.susp 2,400 Mg PO PRN QHS PRN Depakote Er (Divalproex Sodium) 250 Mg Tab.er.24h 750 Mg PO QHS Fluvoxamine Maleate 100 Mg Tablet 100 Mg PO QHS Bupropion Xl (Bupropion Hcl) 150 Mg Tab.er.24h 150 Mg PO DAILY Protonix (Pantoprazole Sodium) 40 Mg Tablet.dr 40 Mg PO DAILYAC Analgesic [place] (Methyl Salicylate/Menthol) 28 Gm Oint...g. 1 Applic TP PRN QID PRN Advanced Antacid Liquid (Mag Hydrox/Al Hydrox/Simeth) 355 Ml Oral.susp 15 Ml PO PRN AFTMEALHC PRN Levemir (Insulin Detemir) 100 Unit/1 Ml Vial 3 Unit SQ QHS Tylenol (Acetaminophen) 325 Mg Tablet 650 Mg PO PRN Q6HRS PRN Zyprexa (Olanzapine) 2.5 Mg Tablet 2.5 Mg PO DAILY Senna (Sennosides) 8.6 Mg Tablet 8.6 Mg PO BID Primidone 50 Mg Tablet 150 Mg PO BID Multiple Vitamin (Multivitamin With Minerals) 1 Each Tablet 1 Tab PO DAILY Modafinil 100 Mg Tablet 100 Mg PO QHS Metoprolol Tartrate 25 Mg Tablet 25 Mg PO BID Levetiracetam 500 Mg Tablet 1,000 Mg PO BID Fluticasone Propionate Nasal [place] (Fluticasone Propionate) 16 Gm [place].susp 1 [place] NS BID Docusate Sodium 100 Mg Capsule 100 Mg PO BID Vitamin D3 (Cholecalciferol (Vitamin D3)) 1,000 Unit Tablet 2,000 Unit PO DAILY Buspirone Hcl 5 Mg Tablet 5 Mg PO BID Diagnosis: Problems: (1) Anxiety disorder (2) Impulse control disorder (3) Psychosis, atypical (4) Schizoaffective disorder (5) Bipolar affective disorder, mixed (6) Encounter for medical screening examination (7) Borderline intellectual disability AYAKA FERNANDEZ MD Apr 22, 2017 22:46
[2017-04-23 05:43] VITALS: BP 128/84
[2017-04-23] MEDS: INSULIN ASPART 300 UNITS/3 ML INSULN.PEN SQ SCH ×4 (07:07→20:54)
[2017-04-23] MEDS: PANTOPRAZOLE 40 MG TABLET. PO SCH (07:41)
[2017-04-23] MEDS: FLUTICASONE 50MCG/NASAL SPRAY 16GM BOTTLE. NS SCH ×2 (07:41→20:56)
[2017-04-23] MEDS: DOCUSATE SODIUM 100 MG CAPSULE PO SCH ×2 (07:44→20:52)
[2017-04-23] MEDS: levETIRAcetam 500 MG TABLET PO SCH ×2 (07:44→20:51)
[2017-04-23] MEDS: busPIRone 5 MG TABLET. PO SCH ×2 (07:44→20:52)
[2017-04-23] MEDS: METOPROLOL TART IMMED RELEASE 25 MG TABLET PO SCH ×2 (07:45→20:52)
[2017-04-23] MEDS: POLYETHYLENE GLYCOL 3350 17 GM PACKET. PO SCH (07:45)
[2017-04-23] MEDS: MULTIVITAMIN with MINERAL TABLET. PO SCH (07:46)
[2017-04-23] MEDS: SENNOSIDES 8.6 MG TABLET PO SCH ×2 (07:46→20:52)
[2017-04-23] MEDS: medroxyPROGESTERone 5 MG TABLET PO SCH (07:46)
[2017-04-23] MEDS: PRIMIDONE 50 MG TABLET PO SCH ×2 (07:46→20:53)
[2017-04-23] MEDS: CHOLECALCIFEROL (VITAMIN D3) 1,000 UNIT TABLET PO SCH (07:47)
[2017-04-23 15:43] VITALS: BP 101/64
--- NOTE | 2017-04-23 20:27 | PDOC ---
Exam Trey Demential Exam: Trey Note: Please also refer to the separate dictated note~for this date of service dictated separately.~Patient seen individually. Discussed the patient with Nursing staff reviewed the chart.~Reviewed interim history and current functioning. Reviewed vital signs,~Labs/ Radiology~and current medications noted below. Continue current treatment with the changes noted in the dictated addendum note Assessment: Vital Signs: Vital Signs Date Time Temp Pulse Resp B/P (MAP) Pulse Ox O2 Delivery O2 Flow Rate FiO2 04/23/17 15:43 98.4 64 20 101/64 (76) 93 04/22/17 05:59 Room Air I&O Intake and Output 04/24/17 07:00 Intake Total 720 ml Balance 720 ml Intake Oral 720 ml Labs: Laboratory Tests Test 04/23/17 07:01 04/23/17 11:35 04/23/17 16:28 04/23/17 19:13 Glucose (Fingerstick) 72 mg/dL (70-99) 123 mg/dL (70-99) H 102 mg/dL (70-99) H 109 mg/dL (70-99) H Current Medications: Meds: Current Medications Acetaminophen (Tylenol) 650 mg PRN Q6HRS PRN PO PAIN / TEMP; Start 04/19/17 at 12:30; Status Cancel Multi-Ingredient Ointment (Analgesic [place]) 1 fabrizio PRN QID PRN TP MUSCLE PAIN; Start 04/19/17 at 12:30; Status Cancel Al Hydroxide/Mg Hydroxide (Mylanta Plus Xs) 15 ml PRN AFTMEALHC PRN PO DYSPEPSIA; Start 04/19/17 at 12:30 Magnesium Hydroxide (Milk Of Magnesia) 2,400 mg PRN QHS PRN PO CONSTIPATION; Start 04/19/17 at 12:30 Influenza Virus Vaccine Quadrival (Fluarix Quad [id number] Syringe) 0.5 ml ONCE ONCE VAX IM Last administered on 04/20/17 13:28; Start 04/20/17 at 09:00; Stop 04/20/17 at 09:01; Status DC Pneumococcal Polyvalent Vaccine (Pneumovax 23) 0.5 ml ONCE ONCE VAX IM Last administered on 04/20/17 13:29; Start 04/20/17 at 09:00; Stop 04/20/17 at 09:01 ; Status DC Buspirone HCl (Buspar) 5 mg BID PO Last administered on 04/23/17 07:44; Start 04/19/17 at 21:00 Divalproex Sodium (Depakote Er) 750 mg QHS PO Last administered on 04/22/17 19 :23; Start 04/19/17 at 21:00 Fluvoxamine Maleate (Luvox) 100 mg QHS PO Last administered on 04/22/17 19:22 ; Start 04/19/17 at 21:00 Levetiracetam (Keppra) 1,000 mg BID PO Last administered on 04/23/17 07:44; Start 04/19/17 at 21:00 Olanzapine (ZyPREXA) 2.5 mg DAILY PO Last administered on 04/21/17 08:51; Start 04/20/17 at 09:00; Stop 04/21/17 at 18:33; Status DC Primidone (Mysoline) 150 mg BID PO Last administered on 04/23/17 07:46; Start 04/19/17 at 21:00 Insulin Aspart (NovoLOG) 0-5 UNITS QIDACHS SQ Last administered on 04/21/17 17 :27; Start 04/19/17 at 16:30 Acetaminophen (Tylenol) 650 mg PRN Q6HRS PRN PO PAIN / TEMP; Start 04/19/17 at 13:30 Vitamin D (Vitamin D3) 2,000 unit DAILY PO Last administered on 04/23/17 07:47 ; Start 04/20/17 at 09:00 Docusate Sodium (Colace) 100 mg BID PO Last administered on 04/23/17 07:44; Start 04/19/17 at 21:00 Fluticasone Propionate (Flonase) 1 spray BID NS Last administered on 04/23/17 07:41; Start 04/19/17 at 21:00 Multi-Ingredient Ointment (Analgesic [place]) 1 fabrizio PRN QID PRN TP MUSCLE PAIN; Start 04/19/17 at 13:30 Metoprolol Tartrate (Lopressor) 25 mg BID PO Last administered on 04/23/17 07: 45; Start 04/19/17 at 21:00 Modafinil (Provigil) 100 mg QHS PO Last administered on 04/22/17 19:22; Start 04/19/17 at 21:00 Pantoprazole Sodium (Protonix) 40 mg DAILYAC PO Last administered on 04/23/17 07:41; Start 04/20/17 at 07:30 Sennosides (Senna) 8.6 mg BID PO Last administered on 04/23/17 07:46; Start 04/19/17 at 21:00 Insulin Detemir (Levemir) 3 units QHS SQ Last administered on 04/22/17 19:26; Start 04/19/17 at 21:00 Non-Formulary Medication 2,400 mg PRN QHS PRN PO CONSTIPATION; Start 04/19/17 at 13:30; Status UNV Multivitamins/ Calcium (Thera-M Plus) 1 tab DAILY PO Last administered on 07:46; Start 04/20/17 at 09:00 Polyethylene Glycol (miraLAX) 17 gm DAILY PO Last administered on 04/23/17 07: 45; Start 04/20/17 at 09:00 Quetiapine Fumarate (SEROquel) 50 mg QHS PO Last administered on 04/22/17 19: 23; Start 04/20/17 at 21:00 Medroxyprogesterone Acetate (Provera) 5 mg DAILY PO Last administered on 07:46; Start 04/22/17 at 09:00 Active Scripts Active Reported Miralax (Polyethylene Glycol 3350) 119 Gm Powder 17 Gm PO DAILY Milk Of Magnesia (Magnesium Hydroxide) 400 Mg/5 Ml Oral.susp 2,400 Mg PO PRN QHS PRN Depakote Er (Divalproex Sodium) 250 Mg Tab.er.24h 750 Mg PO QHS Fluvoxamine Maleate 100 Mg Tablet 100 Mg PO QHS Bupropion Xl (Bupropion Hcl) 150 Mg Tab.er.24h 150 Mg PO DAILY Protonix (Pantoprazole Sodium) 40 Mg Tablet.dr 40 Mg PO DAILYAC Analgesic [place] (Methyl Salicylate/Menthol) 28 Gm Oint...g. 1 Applic TP PRN QID PRN Advanced Antacid Liquid (Mag Hydrox/Al Hydrox/Simeth) 355 Ml Oral.susp 15 Ml PO PRN AFTMEALHC PRN Levemir (Insulin Detemir) 100 Unit/1 Ml Vial 3 Unit SQ QHS Tylenol (Acetaminophen) 325 Mg Tablet 650 Mg PO PRN Q6HRS PRN Zyprexa (Olanzapine) 2.5 Mg Tablet 2.5 Mg PO DAILY Senna (Sennosides) 8.6 Mg Tablet 8.6 Mg PO BID Primidone 50 Mg Tablet 150 Mg PO BID Multiple Vitamin (Multivitamin With Minerals) 1 Each Tablet 1 Tab PO DAILY Modafinil 100 Mg Tablet 100 Mg PO QHS Metoprolol Tartrate 25 Mg Tablet 25 Mg PO BID Levetiracetam 500 Mg Tablet 1,000 Mg PO BID Fluticasone Propionate Nasal [place] (Fluticasone Propionate) 16 Gm [place].susp 1 [place] NS BID Docusate Sodium 100 Mg Capsule 100 Mg PO BID Vitamin D3 (Cholecalciferol (Vitamin D3)) 1,000 Unit Tablet 2,000 Unit PO DAILY Buspirone Hcl 5 Mg Tablet 5 Mg PO BID Diagnosis: Problems: (1) Anxiety disorder (2) Impulse control disorder (3) Psychosis, atypical (4) Schizoaffective disorder (5) Bipolar affective disorder, mixed (6) Encounter for medical screening examination (7) Borderline intellectual disability AYAKA FERNANDEZ MD Apr 23, 2017 20:27
[2017-04-23] MEDS: DIVALPROEX ER 250 MG TAB.ER.24H. PO SCH (20:51)
[2017-04-23] MEDS: QUEtiapine 50 MG TABLET. PO SCH (20:52)
[2017-04-23] MEDS: MODAFINIL 100 MG TABLET PO SCH (20:53)
[2017-04-23] MEDS: INSULIN DETEMIR 300 UNITS/3 ML INSULN.PEN. SQ SCH (20:56)
--- NOTE | 2017-04-23 21:03 | PN ---
DATE: 04/22/2017 This is a late entry for 04/22/2017, covers the elements not covered in my initial note of 04/22/2017. I met with the patient evening of 04/22/2016. The patient has been joking with staff, withdrawn to his room, no sexually inappropriate behaviors noted. He gets a little anxious, restless, socially disinhibited, part of his diagnosis. I processed this with him individually. REVIEW OF SYSTEMS: Ambulation impaired in wheelchair. No CV, , pulmonary, eye, ENT system symptoms on review. MENTAL STATUS EXAM: Oriented to himself and situation. Speech, often responses monosyllabic. Abstraction fair, computation impaired, language function intact. Mood and affect somewhat anxious, at times labile, somewhat obsessive. LABORATORY DATA: Reviewed. Valproic acid level at last check was 27, will be repeated on Depakote ER 750 at bedtime. IMPRESSION: Unchanged from initial note. PLAN: Continue Provera, BuSpar, Luvox, Depakote. Follow labs level on the Depakote. Adjust to reach a therapeutic level. Reviewed drug interactions, risk/benefit ratio favors no further change for now. MAN Maria Antonia FERNANDEZ MD DR: CAMERON/varun JOB#: [id number] / [id number]
[2017-04-24 06:16] VITALS: BP 129/67
[2017-04-24] MEDS: INSULIN ASPART 300 UNITS/3 ML INSULN.PEN SQ SCH ×4 (07:30→20:31)
[2017-04-24] MEDS: FLUTICASONE 50MCG/NASAL SPRAY 16GM BOTTLE. NS SCH ×2 (07:54→20:24)
[2017-04-24] MEDS: PANTOPRAZOLE 40 MG TABLET. PO SCH (07:54)
[2017-04-24] MEDS: busPIRone 5 MG TABLET. PO SCH ×2 (07:55→20:25)
[2017-04-24] MEDS: DOCUSATE SODIUM 100 MG CAPSULE PO SCH ×2 (07:55→20:25)
[2017-04-24] MEDS: levETIRAcetam 500 MG TABLET PO SCH ×2 (07:55→20:25)
[2017-04-24] MEDS: CHOLECALCIFEROL (VITAMIN D3) 1,000 UNIT TABLET PO SCH (07:56)
[2017-04-24] MEDS: SENNOSIDES 8.6 MG TABLET PO SCH ×2 (07:56→20:25)
[2017-04-24] MEDS: medroxyPROGESTERone 5 MG TABLET PO SCH (07:56)
[2017-04-24] MEDS: POLYETHYLENE GLYCOL 3350 17 GM PACKET. PO SCH (07:56)
[2017-04-24] MEDS: PRIMIDONE 50 MG TABLET PO SCH ×2 (07:56→20:26)
[2017-04-24] MEDS: MULTIVITAMIN with MINERAL TABLET. PO SCH (07:56)
[2017-04-24] MEDS: METOPROLOL TART IMMED RELEASE 25 MG TABLET PO SCH ×2 (08:51→20:26)
--- NOTE | 2017-04-24 09:21 | PN ---
DATE: 04/23/2017 PSYCHIATRIC PROGRESS NOTE This late entry 04/23/2017 covers elements, not covered in my initial note of 04/23/2017. SUBJECTIVE: I met with the patient the evening of 04/23/2017. He has been attempting to ambulate, unassisted is a fall risk. At one point, he was somewhat sexually inappropriately trying to hold on to a female nursing staff, but redirected. REVIEW OF SYSTEMS: Ambulation impaired. In wheelchair. No CV, , pulmonary, eye, ENT system symptoms on review. Reliability poor. MENTAL STATUS EXAM: Oriented to himself and situation. Speech, often responses monosyllabic. Abstraction fair, computation impaired, language function intact. Mood and affect somewhat labile at times. LABORATORY DATA: Reviewed. IMPRESSION: Unchanged from initial note. PLAN: Continue current psychotropics, may need to increase Provera. Reviewed drug interactions. Risk/benefit ratio favors no further change. AYAKA FERNANDEZ MD DR: CAMERON/varun JOB#: [id number] / [id number]
[2017-04-24 16:01] VITALS: BP 124/70
--- NOTE | 2017-04-24 20:18 | PDOC ---
Exam Trey Demential Exam: Trey Note: Please also refer to the separate dictated note~for this date of service dictated separately.~Patient seen individually. Discussed the patient with Nursing staff reviewed the chart.~Reviewed interim history and current functioning. Reviewed vital signs,~Labs/ Radiology~and current medications noted below. Continue current treatment with the changes noted in the dictated addendum note Assessment: Vital Signs: Vital Signs Date Time Temp Pulse Resp B/P (MAP) Pulse Ox O2 Delivery O2 Flow Rate FiO2 04/24/17 16:01 98.1 79 20 124/70 (88) 94 Room Air I&O Intake and Output 04/25/17 07:00 Intake Total 1360 ml Balance 1360 ml Intake Oral 1360 ml Labs: Laboratory Tests Test 04/24/17 07:40 04/24/17 11:36 04/24/17 16:20 04/24/17 19:16 Glucose (Fingerstick) 92 mg/dL (70-99) 109 mg/dL (70-99) H 100 mg/dL (70-99) H 151 mg/dL (70-99) H Current Medications: Meds: Current Medications Acetaminophen (Tylenol) 650 mg PRN Q6HRS PRN PO PAIN / TEMP; Start 04/19/17 at 12:30; Status Cancel Multi-Ingredient Ointment (Analgesic [place]) 1 fabrizio PRN QID PRN TP MUSCLE PAIN; Start 04/19/17 at 12:30; Status Cancel Al Hydroxide/Mg Hydroxide (Mylanta Plus Xs) 15 ml PRN AFTMEALHC PRN PO DYSPEPSIA; Start 04/19/17 at 12:30 Magnesium Hydroxide (Milk Of Magnesia) 2,400 mg PRN QHS PRN PO CONSTIPATION; Start 04/19/17 at 12:30 Influenza Virus Vaccine Quadrival (Fluarix Quad [id number] Syringe) 0.5 ml ONCE ONCE VAX IM Last administered on 04/20/17 13:28; Start 04/20/17 at 09:00; Stop 04/20/17 at 09:01; Status DC Pneumococcal Polyvalent Vaccine (Pneumovax 23) 0.5 ml ONCE ONCE VAX IM Last administered on 04/20/17 13:29; Start 04/20/17 at 09:00; Stop 04/20/17 at 09:01 ; Status DC Buspirone HCl (Buspar) 5 mg BID PO Last administered on 04/24/17 07:55; Start 04/19/17 at 21:00 Divalproex Sodium (Depakote Er) 750 mg QHS PO Last administered on 04/23/17 20 :51; Start 04/19/17 at 21:00 Fluvoxamine Maleate (Luvox) 100 mg QHS PO Last administered on 04/23/17 20:52 ; Start 04/19/17 at 21:00 Levetiracetam (Keppra) 1,000 mg BID PO Last administered on 04/24/17 07:55; Start 04/19/17 at 21:00 Olanzapine (ZyPREXA) 2.5 mg DAILY PO Last administered on 04/21/17 08:51; Start 04/20/17 at 09:00; Stop 04/21/17 at 18:33; Status DC Primidone (Mysoline) 150 mg BID PO Last administered on 04/24/17 07:56; Start 04/19/17 at 21:00 Insulin Aspart (NovoLOG) 0-5 UNITS QIDACHS SQ Last administered on 04/21/17 17 :27; Start 04/19/17 at 16:30 Acetaminophen (Tylenol) 650 mg PRN Q6HRS PRN PO PAIN / TEMP; Start 04/19/17 at 13:30 Vitamin D (Vitamin D3) 2,000 unit DAILY PO Last administered on 04/24/17 07:56 ; Start 04/20/17 at 09:00 Docusate Sodium (Colace) 100 mg BID PO Last administered on 04/24/17 07:55; Start 04/19/17 at 21:00 Fluticasone Propionate (Flonase) 1 spray BID NS Last administered on 04/24/17 07:54; Start 04/19/17 at 21:00 Multi-Ingredient Ointment (Analgesic [place]) 1 fabrizio PRN QID PRN TP MUSCLE PAIN; Start 04/19/17 at 13:30 Metoprolol Tartrate (Lopressor) 25 mg BID PO Last administered on 04/23/17 07: 45; Start 04/19/17 at 21:00; Stop 04/24/17 at 14:03; Status DC Modafinil (Provigil) 100 mg QHS PO Last administered on 04/23/17 20:53; Start 04/19/17 at 21:00 Pantoprazole Sodium (Protonix) 40 mg DAILYAC PO Last administered on 04/24/17 07:54; Start 04/20/17 at 07:30 Sennosides (Senna) 8.6 mg BID PO Last administered on 04/24/17 07:56; Start 04/19/17 at 21:00 Insulin Detemir (Levemir) 3 units QHS SQ Last administered on 04/23/17 20:56; Start 04/19/17 at 21:00 Non-Formulary Medication 2,400 mg PRN QHS PRN PO CONSTIPATION; Start 04/19/17 at 13:30; Status UNV Multivitamins/ Calcium (Thera-M Plus) 1 tab DAILY PO Last administered on 07:56; Start 04/20/17 at 09:00 Polyethylene Glycol (miraLAX) 17 gm DAILY PO Last administered on 04/24/17 07: 56; Start 04/20/17 at 09:00 Quetiapine Fumarate (SEROquel) 50 mg QHS PO Last administered on 04/23/17 20: 52; Start 04/20/17 at 21:00 Medroxyprogesterone Acetate (Provera) 5 mg DAILY PO Last administered on 07:56; Start 04/22/17 at 09:00 Metoprolol Tartrate (Lopressor) 12.5 mg BID PO ; Start 04/24/17 at 21:00 Active Scripts Active Reported Miralax (Polyethylene Glycol 3350) 119 Gm Powder 17 Gm PO DAILY Milk Of Magnesia (Magnesium Hydroxide) 400 Mg/5 Ml Oral.susp 2,400 Mg PO PRN QHS PRN Depakote Er (Divalproex Sodium) 250 Mg Tab.er.24h 750 Mg PO QHS Fluvoxamine Maleate 100 Mg Tablet 100 Mg PO QHS Bupropion Xl (Bupropion Hcl) 150 Mg Tab.er.24h 150 Mg PO DAILY Protonix (Pantoprazole Sodium) 40 Mg Tablet.dr 40 Mg PO DAILYAC Analgesic [place] (Methyl Salicylate/Menthol) 28 Gm Oint...g. 1 Applic TP PRN QID PRN Advanced Antacid Liquid (Mag Hydrox/Al Hydrox/Simeth) 355 Ml Oral.susp 15 Ml PO PRN AFTMEALHC PRN Levemir (Insulin Detemir) 100 Unit/1 Ml Vial 3 Unit SQ QHS Tylenol (Acetaminophen) 325 Mg Tablet 650 Mg PO PRN Q6HRS PRN Zyprexa (Olanzapine) 2.5 Mg Tablet 2.5 Mg PO DAILY Senna (Sennosides) 8.6 Mg Tablet 8.6 Mg PO BID Primidone 50 Mg Tablet 150 Mg PO BID Multiple Vitamin (Multivitamin With Minerals) 1 Each Tablet 1 Tab PO DAILY Modafinil 100 Mg Tablet 100 Mg PO QHS Metoprolol Tartrate 25 Mg Tablet 25 Mg PO BID Levetiracetam 500 Mg Tablet 1,000 Mg PO BID Fluticasone Propionate Nasal [place] (Fluticasone Propionate) 16 Gm [place].susp 1 [place] NS BID Docusate Sodium 100 Mg Capsule 100 Mg PO BID Vitamin D3 (Cholecalciferol (Vitamin D3)) 1,000 Unit Tablet 2,000 Unit PO DAILY Buspirone Hcl 5 Mg Tablet 5 Mg PO BID Diagnosis: Problems: (1) Anxiety disorder (2) Impulse control disorder (3) Psychosis, atypical (4) Schizoaffective disorder (5) Bipolar affective disorder, mixed (6) Encounter for medical screening examination (7) Borderline intellectual disability AYAKA FERNANDEZ MD Apr 24, 2017 20:18
[2017-04-24] MEDS: QUEtiapine 50 MG TABLET. PO SCH (20:24)
[2017-04-24] MEDS: DIVALPROEX ER 250 MG TAB.ER.24H. PO SCH (20:25)
[2017-04-24] MEDS: MODAFINIL 100 MG TABLET PO SCH (20:28)
[2017-04-24] MEDS: INSULIN DETEMIR 300 UNITS/3 ML INSULN.PEN. SQ SCH (20:30)
[2017-04-25 07:06] VITALS: BP 110/68
[2017-04-25] MEDS: INSULIN ASPART 300 UNITS/3 ML INSULN.PEN SQ SCH ×4 (07:28→20:47)
[2017-04-25] MEDS: medroxyPROGESTERone 5 MG TABLET PO SCH (07:46)
[2017-04-25] MEDS: PANTOPRAZOLE 40 MG TABLET. PO SCH (07:46)
[2017-04-25] MEDS: SENNOSIDES 8.6 MG TABLET PO SCH ×2 (07:47→19:16)
[2017-04-25] MEDS: MULTIVITAMIN with MINERAL TABLET. PO SCH (07:47)
[2017-04-25] MEDS: PRIMIDONE 50 MG TABLET PO SCH ×2 (07:47→19:14)
[2017-04-25] MEDS: METOPROLOL TART IMMED RELEASE 25 MG TABLET PO SCH ×2 (07:49→20:35)
[2017-04-25] MEDS: DOCUSATE SODIUM 100 MG CAPSULE PO SCH ×2 (07:50→19:16)
[2017-04-25] MEDS: busPIRone 5 MG TABLET. PO SCH ×2 (07:50→19:14)
[2017-04-25] MEDS: levETIRAcetam 500 MG TABLET PO SCH ×2 (07:50→19:12)
[2017-04-25] MEDS: CHOLECALCIFEROL (VITAMIN D3) 1,000 UNIT TABLET PO SCH (07:50)
[2017-04-25] MEDS: POLYETHYLENE GLYCOL 3350 17 GM PACKET. PO SCH (07:50)
[2017-04-25] MEDS: FLUTICASONE 50MCG/NASAL SPRAY 16GM BOTTLE. NS SCH ×2 (07:51→20:35)
[2017-04-25 10:20] LABS: BASO % 1 % (0-3); EOS # 0.2 x10^3/uL (0.0-0.7); EOS % 5 % (0-3); HEMATOCRIT 42.7 % (39.0-53.0); HEMOGLOBIN 14.7 g/dL (13.0-17.5); LYMPH # 0.8 x10^3/uL (1.0-4.8); LYMPH % 19 % (24-48); MEAN CORPUSCULAR HEMOGLOBIN 32 pg (25-35); MEAN CORPUSCULAR HGB CONC 34 g/dL (31-37); MEAN CORPUSCULAR VOLUME 93 fL (79-100); MONO # 0.4 x10^3/uL (0.0-1.1); MONO % 9 % (0-9); NEUT # 2.7 x10^3uL (1.8-7.7); NEUT % 66 % (31-73); PLATELET COUNT 192 x10^3/uL (140-400); RED BLOOD COUNT 4.57 x10^6/uL (4.30-5.70); RED CELL DISTRIBUTION WIDTH 15.4 % (11.5-14.5); WHITE BLOOD COUNT 4.1 x10^3/uL (4.0-11.0)
[2017-04-25 12:53] LABS: ALBUMIN 3.1 g/dL (3.4-5.0); CALCIUM 9.1 mg/dL (8.5-10.1); CREATININE 0.9 mg/dL (0.7-1.3); GFR 101.2; TOTAL BILIRUBIN 0.3 mg/dL (0.2-1.0); TOTAL PROTEIN 6.3 g/dL (6.4-8.2)
[2017-04-25 15:49] VITALS: BP 102/65
[2017-04-25] MEDS: QUEtiapine 50 MG TABLET. PO SCH (19:13)
[2017-04-25] MEDS: DIVALPROEX ER 250 MG TAB.ER.24H. PO SCH (19:13)
[2017-04-25 20:30] VITALS: BP 127/70
[2017-04-25] MEDS: MODAFINIL 100 MG TABLET PO SCH (20:33)
--- NOTE | 2017-04-25 20:36 | PDOC ---
Exam Trey Demential Exam: Trey Note: Please also refer to the separate dictated note~for this date of service dictated separately.~Patient seen individually. Discussed the patient with Nursing staff reviewed the chart.~Reviewed interim history and current functioning. Reviewed vital signs,~Labs/ Radiology~and current medications noted below. Continue current treatment with the changes noted in the dictated addendum note Assessment: Vital Signs: Vital Signs Date Time Temp Pulse Resp B/P (MAP) Pulse Ox O2 Delivery O2 Flow Rate FiO2 04/25/17 20:30 80 127/70 (89) 04/25/17 15:49 97.3 18 94 04/24/17 16:01 Room Air I&O Intake and Output 04/26/17 07:00 Intake Total 1280 ml Balance 1280 ml Intake Oral 1280 ml # Bowel Movements 2 Labs: Laboratory Tests Test 04/25/17 07:15 04/25/17 10:10 04/25/17 11:13 04/25/17 16:30 Glucose (Fingerstick) 88 mg/dL (70-99) 104 mg/dL (70-99) H 91 mg/dL (70-99) White Blood Count 4.1 x10^3/uL (4.0-11.0) Red Blood Count 4.57 x10^6/uL (4.30-5.70) Hemoglobin 14.7 g/dL (13.0-17.5) Hematocrit 42.7 % (39.0-53.0) Mean Corpuscular Volume 93 fL (79-100) Mean Corpuscular Hemoglobin 32 pg (25-35) Mean Corpuscular Hemoglobin Concent 34 g/dL (31-37) Red Cell Distribution Width 15.4 % (11.5-14.5) H Platelet Count 192 x10^3/uL (140-400) Neutrophils (%) (Auto) 66 % (31-73) Lymphocytes (%) (Auto) 19 % (24-48) L Monocytes (%) (Auto) 9 % (0-9) Eosinophils (%) (Auto) 5 % (0-3) H Basophils (%) (Auto) 1 % (0-3) Neutrophils # (Auto) 2.7 x10^3uL (1.8-7.7) Lymphocytes # (Auto) 0.8 x10^3/uL (1.0-4.8) L Monocytes # (Auto) 0.4 x10^3/uL (0.0-1.1) Eosinophils # (Auto) 0.2 x10^3/uL (0.0-0.7) Basophils # (Auto) 0.0 x10^3/uL (0.0-0.2) Sodium Level 140 mmol/L (136-145) Potassium Level 4.0 mmol/L (3.5-5.1) Chloride Level 104 mmol/L (98-107) Carbon Dioxide Level 34 mmol/L (21-32) H Anion Gap 2 (6-14) L Blood Urea Nitrogen 13 mg/dL (8-26) Creatinine 0.9 mg/dL (0.7-1.3) Estimated GFR (Cockcroft-Gault) 101.2 BUN/Creatinine Ratio 14 (6-20) Glucose Level 95 mg/dL (70-99) Calcium Level 9.1 mg/dL (8.5-10.1) Total Bilirubin 0.3 mg/dL (0.2-1.0) Aspartate Amino Transferase (AST) 8 U/L (15-37) L Alanine Aminotransferase (ALT) 22 U/L (16-63) Alkaline Phosphatase 63 U/L (46-116) Total Protein 6.3 g/dL (6.4-8.2) L Albumin 3.1 g/dL (3.4-5.0) L Albumin/Globulin Ratio 1.0 (1.0-1.7) Test 04/25/17 19:18 Glucose (Fingerstick) 152 mg/dL (70-99) H Current Medications: Meds: Current Medications Acetaminophen (Tylenol) 650 mg PRN Q6HRS PRN PO PAIN / TEMP; Start 04/19/17 at 12:30; Status Cancel Multi-Ingredient Ointment (Analgesic [place]) 1 fabrizio PRN QID PRN TP MUSCLE PAIN; Start 04/19/17 at 12:30; Status Cancel Al Hydroxide/Mg Hydroxide (Mylanta Plus Xs) 15 ml PRN AFTMEALHC PRN PO DYSPEPSIA; Start 04/19/17 at 12:30 Magnesium Hydroxide (Milk Of Magnesia) 2,400 mg PRN QHS PRN PO CONSTIPATION; Start 04/19/17 at 12:30 Influenza Virus Vaccine Quadrival (Fluarix Quad [id number] Syringe) 0.5 ml ONCE ONCE VAX IM Last administered on 04/20/17 13:28; Start 04/20/17 at 09:00; Stop 04/20/17 at 09:01; Status DC Pneumococcal Polyvalent Vaccine (Pneumovax 23) 0.5 ml ONCE ONCE VAX IM Last administered on 04/20/17 13:29; Start 04/20/17 at 09:00; Stop 04/20/17 at 09:01 ; Status DC Buspirone HCl (Buspar) 5 mg BID PO Last administered on 04/25/17 19:14; Start 04/19/17 at 21:00 Divalproex Sodium (Depakote Er) 750 mg QHS PO Last administered on 04/25/17 19:13; Start 04/19/17 at 21:00 Fluvoxamine Maleate (Luvox) 100 mg QHS PO Last administered on 04/24/17 20:25 ; Start 04/19/17 at 21:00 Levetiracetam (Keppra) 1,000 mg BID PO Last administered on 04/25/17 19:12; Start 04/19/17 at 21:00 Olanzapine (ZyPREXA) 2.5 mg DAILY PO Last administered on 04/21/17 08:51; Start 04/20/17 at 09:00; Stop 04/21/17 at 18:33; Status DC Primidone (Mysoline) 150 mg BID PO Last administered on 04/25/17 19:14; Start 04/19/17 at 21:00 Insulin Aspart (NovoLOG) 0-5 UNITS QIDACHS SQ Last administered on 04/21/17 17 :27; Start 04/19/17 at 16:30 Acetaminophen (Tylenol) 650 mg PRN Q6HRS PRN PO PAIN / TEMP; Start 04/19/17 at 13:30 Vitamin D (Vitamin D3) 2,000 unit DAILY PO Last administered on 04/25/17 07: 50; Start 04/20/17 at 09:00 Docusate Sodium (Colace) 100 mg BID PO Last administered on 04/25/17 07:50; Start 04/19/17 at 21:00 Fluticasone Propionate (Flonase) 1 spray BID NS Last administered on 07:51; Start 04/19/17 at 21:00 Multi-Ingredient Ointment (Analgesic [place]) 1 fabrizio PRN QID PRN TP MUSCLE PAIN; Start 04/19/17 at 13:30 Metoprolol Tartrate (Lopressor) 25 mg BID PO Last administered on 04/23/17 07: 45; Start 04/19/17 at 21:00; Stop 04/24/17 at 14:03; Status DC Modafinil (Provigil) 100 mg QHS PO Last administered on 04/24/17 20:28; Start 04/19/17 at 21:00 Pantoprazole Sodium (Protonix) 40 mg DAILYAC PO Last administered on 07:46; Start 04/20/17 at 07:30 Sennosides (Senna) 8.6 mg BID PO Last administered on 04/25/17 07:47; Start 04/19/17 at 21:00 Insulin Detemir (Levemir) 3 units QHS SQ Last administered on 04/24/17 20:30; Start 04/19/17 at 21:00 Non-Formulary Medication 2,400 mg PRN QHS PRN PO CONSTIPATION; Start 04/19/17 at 13:30; Status UNV Multivitamins/ Calcium (Thera-M Plus) 1 tab DAILY PO Last administered on 04/25 07:47; Start 04/20/17 at 09:00 Polyethylene Glycol (miraLAX) 17 gm DAILY PO Last administered on 04/25/17 07 :50; Start 04/20/17 at 09:00 Quetiapine Fumarate (SEROquel) 50 mg QHS PO Last administered on 04/25/17 19: 13; Start 04/20/17 at 21:00 Medroxyprogesterone Acetate (Provera) 5 mg DAILY PO Last administered on 07:46; Start 04/22/17 at 09:00; Stop 04/25/17 at 18:26; Status DC Metoprolol Tartrate (Lopressor) 12.5 mg BID PO Last administered on 04/25/17 07:49; Start 04/24/17 at 21:00 Medroxyprogesterone Acetate (Provera) 7.5 mg DAILY PO ; Start 04/26/17 at 09:00 Active Scripts Active Reported Miralax (Polyethylene Glycol 3350) 119 Gm Powder 17 Gm PO DAILY Milk Of Magnesia (Magnesium Hydroxide) 400 Mg/5 Ml Oral.susp 2,400 Mg PO PRN QHS PRN Depakote Er (Divalproex Sodium) 250 Mg Tab.er.24h 750 Mg PO QHS Fluvoxamine Maleate 100 Mg Tablet 100 Mg PO QHS Bupropion Xl (Bupropion Hcl) 150 Mg Tab.er.24h 150 Mg PO DAILY Protonix (Pantoprazole Sodium) 40 Mg Tablet.dr 40 Mg PO DAILYAC Analgesic [place] (Methyl Salicylate/Menthol) 28 Gm Oint...g. 1 Applic TP PRN QID PRN Advanced Antacid Liquid (Mag Hydrox/Al Hydrox/Simeth) 355 Ml Oral.susp 15 Ml PO PRN AFTMEALHC PRN Levemir (Insulin Detemir) 100 Unit/1 Ml Vial 3 Unit SQ QHS Tylenol (Acetaminophen) 325 Mg Tablet 650 Mg PO PRN Q6HRS PRN Zyprexa (Olanzapine) 2.5 Mg Tablet 2.5 Mg PO DAILY Senna (Sennosides) 8.6 Mg Tablet 8.6 Mg PO BID Primidone 50 Mg Tablet 150 Mg PO BID Multiple Vitamin (Multivitamin With Minerals) 1 Each Tablet 1 Tab PO DAILY Modafinil 100 Mg Tablet 100 Mg PO QHS Metoprolol Tartrate 25 Mg Tablet 25 Mg PO BID Levetiracetam 500 Mg Tablet 1,000 Mg PO BID Fluticasone Propionate Nasal [place] (Fluticasone Propionate) 16 Gm [place].susp 1 [place] NS BID Docusate Sodium 100 Mg Capsule 100 Mg PO BID Vitamin D3 (Cholecalciferol (Vitamin D3)) 1,000 Unit Tablet 2,000 Unit PO DAILY Buspirone Hcl 5 Mg Tablet 5 Mg PO BID Diagnosis: Problems: (1) Anxiety disorder (2) Impulse control disorder (3) Psychosis, atypical (4) Schizoaffective disorder (5) Bipolar affective disorder, mixed (6) Encounter for medical screening examination (7) Borderline intellectual disability AYAKA FERNANDEZ MD Apr 25, 2017 20:36
[2017-04-25] MEDS: INSULIN DETEMIR 300 UNITS/3 ML INSULN.PEN. SQ SCH (20:42)
--- NOTE | 2017-04-25 23:57 | PN ---
DATE: 04/24/2017 PSYCHIATRIC PROGRESS NOTE This late entry 04/24/2017 covers elements not covered in my initial note of 04/24/2017. I met with the patient afternoon of 04/24/2017. The patient was possibly masturbating in his room morning of 04/24/2017, but not in the hallway. He tried to inappropriately hold the hand of a female nursing education consultant, but redirected quickly. REVIEW OF SYSTEMS: Ambulation impaired, in a wheelchair. No CV, , pulmonary, eye, ENT system symptoms on review. MENTAL STATUS EXAM: Oriented to himself and situation. Speech moderate latency, often responses monosyllabic. Abstraction fair, computation impaired, language function intact, attention span short. Mood and affect somewhat withdrawn. LABORATORY DATA: Reviewed. IMPRESSION: Unchanged from initial note. PLAN: Continue psychotropics mentioned in my initial note, may need to increase Provera in due course. Reviewed drug interactions, risk/benefit ratio favors no further change. AYAKA FERNANDEZ MD DR: CAMERON/varun JOB#: [id number] / [id number]
[2017-04-26 05:52] VITALS: BP 103/64
[2017-04-26] MEDS: INSULIN ASPART 300 UNITS/3 ML INSULN.PEN SQ SCH ×4 (07:30→21:00)
[2017-04-26] MEDS: PANTOPRAZOLE 40 MG TABLET. PO SCH (08:13)
[2017-04-26] MEDS: FLUTICASONE 50MCG/NASAL SPRAY 16GM BOTTLE. NS SCH ×2 (09:00→21:20)
[2017-04-26] MEDS: DOCUSATE SODIUM 100 MG CAPSULE PO SCH ×2 (10:18→21:16)
[2017-04-26] MEDS: PRIMIDONE 50 MG TABLET PO SCH ×2 (10:18→21:16)
[2017-04-26] MEDS: SENNOSIDES 8.6 MG TABLET PO SCH ×2 (10:18→21:15)
[2017-04-26] MEDS: CHOLECALCIFEROL (VITAMIN D3) 1,000 UNIT TABLET PO SCH (10:18)
[2017-04-26] MEDS: MULTIVITAMIN with MINERAL TABLET. PO SCH (10:18)
[2017-04-26] MEDS: METOPROLOL TART IMMED RELEASE 25 MG TABLET PO SCH ×2 (10:19→21:20)
[2017-04-26] MEDS: busPIRone 5 MG TABLET. PO SCH ×2 (10:19→21:15)
[2017-04-26] MEDS: levETIRAcetam 500 MG TABLET PO SCH ×2 (10:20→21:16)
[2017-04-26] MEDS: POLYETHYLENE GLYCOL 3350 17 GM PACKET. PO SCH (10:20)
[2017-04-26] MEDS: medroxyPROGESTERone 5 MG TABLET PO SCH (10:26)
[2017-04-26 16:27] VITALS: BP 99/63
--- NOTE | 2017-04-26 20:17 | PDOC ---
Exam Trey Demential Exam: Trey Note: Please also refer to the separate dictated note~for this date of service dictated separately.~Patient seen individually. Discussed the patient with Nursing staff reviewed the chart.~Reviewed interim history and current functioning. Reviewed vital signs,~Labs/ Radiology~and current medications noted below. Continue current treatment with the changes noted in the dictated addendum note Assessment: Vital Signs: Vital Signs Date Time Temp Pulse Resp B/P (MAP) Pulse Ox O2 Delivery O2 Flow Rate FiO2 04/26/17 16:27 97.1 68 20 99/63 (75) 92 04/24/17 16:01 Room Air I&O Intake and Output 04/27/17 07:00 Intake Total 1200 ml Balance 1200 ml Intake Oral 1200 ml Labs: Laboratory Tests Test 04/26/17 07:07 04/26/17 11:37 04/26/17 16:21 04/26/17 19:24 Glucose (Fingerstick) 80 mg/dL (70-99) 119 mg/dL (70-99) H 110 mg/dL (70-99) H 127 mg/dL (70-99) H Current Medications: Meds: Current Medications Acetaminophen (Tylenol) 650 mg PRN Q6HRS PRN PO PAIN / TEMP; Start 04/19/17 at 12:30; Status Cancel Multi-Ingredient Ointment (Analgesic [place]) 1 fabrizio PRN QID PRN TP MUSCLE PAIN; Start 04/19/17 at 12:30; Status Cancel Al Hydroxide/Mg Hydroxide (Mylanta Plus Xs) 15 ml PRN AFTMEALHC PRN PO DYSPEPSIA; Start 04/19/17 at 12:30 Magnesium Hydroxide (Milk Of Magnesia) 2,400 mg PRN QHS PRN PO CONSTIPATION; Start 04/19/17 at 12:30 Influenza Virus Vaccine Quadrival (Fluarix Quad [id number] Syringe) 0.5 ml ONCE ONCE VAX IM Last administered on 04/20/17 13:28; Start 04/20/17 at 09:00; Stop 04/20/17 at 09:01; Status DC Pneumococcal Polyvalent Vaccine (Pneumovax 23) 0.5 ml ONCE ONCE VAX IM Last administered on 04/20/17 13:29; Start 04/20/17 at 09:00; Stop 04/20/17 at 09:01 ; Status DC Buspirone HCl (Buspar) 5 mg BID PO Last administered on 04/26/17 10:19; Start 04/19/17 at 21:00 Divalproex Sodium (Depakote Er) 750 mg QHS PO Last administered on 04/25/17 19:13; Start 04/19/17 at 21:00 Fluvoxamine Maleate (Luvox) 100 mg QHS PO Last administered on 04/25/17 20:33 ; Start 04/19/17 at 21:00 Levetiracetam (Keppra) 1,000 mg BID PO Last administered on 04/26/17 10:20; Start 04/19/17 at 21:00 Olanzapine (ZyPREXA) 2.5 mg DAILY PO Last administered on 04/21/17 08:51; Start 04/20/17 at 09:00; Stop 04/21/17 at 18:33; Status DC Primidone (Mysoline) 150 mg BID PO Last administered on 04/26/17 10:18; Start 04/19/17 at 21:00 Insulin Aspart (NovoLOG) 0-5 UNITS QIDACHS SQ Last administered on 04/21/17 17 :27; Start 04/19/17 at 16:30 Acetaminophen (Tylenol) 650 mg PRN Q6HRS PRN PO PAIN / TEMP; Start 04/19/17 at 13:30 Vitamin D (Vitamin D3) 2,000 unit DAILY PO Last administered on 04/26/17 10: 18; Start 04/20/17 at 09:00 Docusate Sodium (Colace) 100 mg BID PO Last administered on 04/26/17 10:18; Start 04/19/17 at 21:00 Fluticasone Propionate (Flonase) 1 spray BID NS Last administered on 20:35; Start 04/19/17 at 21:00 Multi-Ingredient Ointment (Analgesic [place]) 1 fabrizio PRN QID PRN TP MUSCLE PAIN; Start 04/19/17 at 13:30 Metoprolol Tartrate (Lopressor) 25 mg BID PO Last administered on 04/23/17 07: 45; Start 04/19/17 at 21:00; Stop 04/24/17 at 14:03; Status DC Modafinil (Provigil) 100 mg QHS PO Last administered on 04/25/17 20:33; Start 04/19/17 at 21:00 Pantoprazole Sodium (Protonix) 40 mg DAILYAC PO Last administered on 08:13; Start 04/20/17 at 07:30 Sennosides (Senna) 8.6 mg BID PO Last administered on 04/26/17 10:18; Start 04/19/17 at 21:00 Insulin Detemir (Levemir) 3 units QHS SQ Last administered on 04/25/17 20:42 ; Start 04/19/17 at 21:00 Non-Formulary Medication 2,400 mg PRN QHS PRN PO CONSTIPATION; Start 04/19/17 at 13:30; Status UNV Multivitamins/ Calcium (Thera-M Plus) 1 tab DAILY PO Last administered on 04/26 10:18; Start 04/20/17 at 09:00 Polyethylene Glycol (miraLAX) 17 gm DAILY PO Last administered on 04/26/17 10 :20; Start 04/20/17 at 09:00 Quetiapine Fumarate (SEROquel) 50 mg QHS PO Last administered on 04/25/17 19: 13; Start 04/20/17 at 21:00 Medroxyprogesterone Acetate (Provera) 5 mg DAILY PO Last administered on 07:46; Start 04/22/17 at 09:00; Stop 04/25/17 at 18:26; Status DC Metoprolol Tartrate (Lopressor) 12.5 mg BID PO Last administered on 04/26/17 10:19; Start 04/24/17 at 21:00 Medroxyprogesterone Acetate (Provera) 7.5 mg DAILY PO Last administered on 10:26; Start 04/26/17 at 09:00 Active Scripts Active Reported Miralax (Polyethylene Glycol 3350) 119 Gm Powder 17 Gm PO DAILY Milk Of Magnesia (Magnesium Hydroxide) 400 Mg/5 Ml Oral.susp 2,400 Mg PO PRN QHS PRN Depakote Er (Divalproex Sodium) 250 Mg Tab.er.24h 750 Mg PO QHS Fluvoxamine Maleate 100 Mg Tablet 100 Mg PO QHS Bupropion Xl (Bupropion Hcl) 150 Mg Tab.er.24h 150 Mg PO DAILY Protonix (Pantoprazole Sodium) 40 Mg Tablet.dr 40 Mg PO DAILYAC Analgesic [place] (Methyl Salicylate/Menthol) 28 Gm Oint...g. 1 Applic TP PRN QID PRN Advanced Antacid Liquid (Mag Hydrox/Al Hydrox/Simeth) 355 Ml Oral.susp 15 Ml PO PRN AFTMEALHC PRN Levemir (Insulin Detemir) 100 Unit/1 Ml Vial 3 Unit SQ QHS Tylenol (Acetaminophen) 325 Mg Tablet 650 Mg PO PRN Q6HRS PRN Zyprexa (Olanzapine) 2.5 Mg Tablet 2.5 Mg PO DAILY Senna (Sennosides) 8.6 Mg Tablet 8.6 Mg PO BID Primidone 50 Mg Tablet 150 Mg PO BID Multiple Vitamin (Multivitamin With Minerals) 1 Each Tablet 1 Tab PO DAILY Modafinil 100 Mg Tablet 100 Mg PO QHS Metoprolol Tartrate 25 Mg Tablet 25 Mg PO BID Levetiracetam 500 Mg Tablet 1,000 Mg PO BID Fluticasone Propionate Nasal [place] (Fluticasone Propionate) 16 Gm [place].susp 1 [place] NS BID Docusate Sodium 100 Mg Capsule 100 Mg PO BID Vitamin D3 (Cholecalciferol (Vitamin D3)) 1,000 Unit Tablet 2,000 Unit PO DAILY Buspirone Hcl 5 Mg Tablet 5 Mg PO BID Diagnosis: Problems: (1) Anxiety disorder (2) Impulse control disorder (3) Psychosis, atypical (4) Schizoaffective disorder (5) Bipolar affective disorder, mixed (6) Encounter for medical screening examination (7) Borderline intellectual disability AYAKA FERNANDEZ MD Apr 26, 2017 20:17
[2017-04-26] MEDS: DIVALPROEX ER 250 MG TAB.ER.24H. PO SCH (21:15)
[2017-04-26] MEDS: MODAFINIL 100 MG TABLET PO SCH (21:16)
[2017-04-26] MEDS: QUEtiapine 50 MG TABLET. PO SCH (21:16)
[2017-04-26] MEDS: INSULIN DETEMIR 300 UNITS/3 ML INSULN.PEN. SQ SCH (21:18)
--- NOTE | 2017-04-27 01:59 | PN ---
DATE: 04/26/2017 PSYCHIATRIC PROGRESS NOTE This is a late entry 04/25/2017, covers elements not covered in my initial note of 04/25/2017. SUBJECTIVE: I met with the patient in the evening of 04/25/2017. Nursing staff have noticed patient continues to masturbate, but only in his room. He is not doing it in front of others. This in itself is an improvement. REVIEW OF SYSTEMS: Ambulation impaired in wheelchair. No CV, , pulmonary, eye, ENT system symptoms on review. Reliability poor. MENTAL STATUS EXAM: Oriented to self and situation at times. Insight, judgment, recent and remote memory, attention, concentration, fund of knowledge poor, consistent with his diagnosis mentioned in my initial note. IMPRESSION: Unchanged from initial note. PLAN: Continue current psychotropics mentioned in my initial note. Increase Provera from 5 mg b.i.d. to 7.5 mg daily. Review drug interactions. Risk/benefit ratio favors no further change at this time. AYAKA FERNANDEZ MD DR: CAMERON/varun JOB#: [id number] / [id number]
[2017-04-27 05:58] VITALS: BP 111/73
[2017-04-27] MEDS: INSULIN ASPART 300 UNITS/3 ML INSULN.PEN SQ SCH ×4 (07:29→19:18)
[2017-04-27] MEDS: busPIRone 5 MG TABLET. PO SCH ×2 (07:57→19:17)
[2017-04-27] MEDS: CHOLECALCIFEROL (VITAMIN D3) 1,000 UNIT TABLET PO SCH (07:58)
[2017-04-27] MEDS: PANTOPRAZOLE 40 MG TABLET. PO SCH (07:59)
[2017-04-27] MEDS: SENNOSIDES 8.6 MG TABLET PO SCH ×2 (07:59→19:17)
[2017-04-27] MEDS: medroxyPROGESTERone 5 MG TABLET PO SCH (07:59)
[2017-04-27] MEDS: levETIRAcetam 500 MG TABLET PO SCH ×2 (07:59→19:16)
[2017-04-27] MEDS: MULTIVITAMIN with MINERAL TABLET. PO SCH (08:00)
[2017-04-27] MEDS: METOPROLOL TART IMMED RELEASE 25 MG TABLET PO SCH ×2 (08:00→19:17)
[2017-04-27] MEDS: PRIMIDONE 50 MG TABLET PO SCH ×2 (08:00→19:15)
[2017-04-27] MEDS: DOCUSATE SODIUM 100 MG CAPSULE PO SCH ×2 (08:00→19:17)
[2017-04-27] MEDS: POLYETHYLENE GLYCOL 3350 17 GM PACKET. PO SCH (08:00)
[2017-04-27] MEDS: FLUTICASONE 50MCG/NASAL SPRAY 16GM BOTTLE. NS SCH ×2 (08:01→19:20)
[2017-04-27 16:23] VITALS: BP 120/71
[2017-04-27] MEDS: QUEtiapine 50 MG TABLET. PO SCH (19:15)
[2017-04-27] MEDS: DIVALPROEX ER 250 MG TAB.ER.24H. PO SCH (19:16)
[2017-04-27] MEDS: MODAFINIL 100 MG TABLET PO SCH (19:17)
[2017-04-27] MEDS: INSULIN DETEMIR 300 UNITS/3 ML INSULN.PEN. SQ SCH (19:22)
--- NOTE | 2017-04-27 20:27 | PDOC ---
Exam Trey Demential Exam: Trey Note: Please also refer to the separate dictated note~for this date of service dictated separately.~Patient seen individually. Discussed the patient with Nursing staff reviewed the chart.~Reviewed interim history and current functioning. Reviewed vital signs,~Labs/ Radiology~and current medications noted below. Continue current treatment with the changes noted in the dictated addendum note Assessment: Vital Signs: Vital Signs Date Time Temp Pulse Resp B/P (MAP) Pulse Ox O2 Delivery O2 Flow Rate FiO2 04/27/17 19:17 71 120/71 04/27/17 16:23 97.4 20 93 04/27/17 05:58 Room Air I&O Intake and Output 04/28/17 07:00 Intake Total 840 ml Balance 840 ml Intake Oral 840 ml Labs: Laboratory Tests Test 04/27/17 07:24 04/27/17 11:22 04/27/17 16:40 04/27/17 19:13 Glucose (Fingerstick) 91 mg/dL (70-99) 122 mg/dL (70-99) H 103 mg/dL (70-99) H 161 mg/dL (70-99) H Current Medications: Meds: Current Medications Acetaminophen (Tylenol) 650 mg PRN Q6HRS PRN PO PAIN / TEMP; Start 04/19/17 at 12:30; Status Cancel Multi-Ingredient Ointment (Analgesic Saline) 1 fabrizio PRN QID PRN TP MUSCLE PAIN; Start 04/19/17 at 12:30; Status Cancel Al Hydroxide/Mg Hydroxide (Mylanta Plus Xs) 15 ml PRN AFTMEALHC PRN PO DYSPEPSIA; Start 04/19/17 at 12:30 Magnesium Hydroxide (Milk Of Magnesia) 2,400 mg PRN QHS PRN PO CONSTIPATION; Start 04/19/17 at 12:30 Influenza Virus Vaccine Quadrival (Fluarix Quad [id number] Syringe) 0.5 ml ONCE ONCE VAX IM Last administered on 04/20/17 13:28; Start 04/20/17 at 09:00; Stop 04/20/17 at 09:01; Status DC Pneumococcal Polyvalent Vaccine (Pneumovax 23) 0.5 ml ONCE ONCE VAX IM Last administered on 04/20/17 13:29; Start 04/20/17 at 09:00; Stop 04/20/17 at 09:01 ; Status DC Buspirone HCl (Buspar) 5 mg BID PO Last administered on 04/27/17 19:17; Start 04/19/17 at 21:00 Divalproex Sodium (Depakote Er) 750 mg QHS PO Last administered on 04/27/17 19:16; Start 04/19/17 at 21:00 Fluvoxamine Maleate (Luvox) 100 mg QHS PO Last administered on 04/27/17 19:17 ; Start 04/19/17 at 21:00 Levetiracetam (Keppra) 1,000 mg BID PO Last administered on 04/27/17 19:16; Start 04/19/17 at 21:00 Olanzapine (ZyPREXA) 2.5 mg DAILY PO Last administered on 04/21/17 08:51; Start 04/20/17 at 09:00; Stop 04/21/17 at 18:33; Status DC Primidone (Mysoline) 150 mg BID PO Last administered on 04/27/17 19:15; Start 04/19/17 at 21:00 Insulin Aspart (NovoLOG) 0-5 UNITS QIDACHS SQ Last administered on 04/21/17 17 :27; Start 04/19/17 at 16:30 Acetaminophen (Tylenol) 650 mg PRN Q6HRS PRN PO PAIN / TEMP; Start 04/19/17 at 13:30 Vitamin D (Vitamin D3) 2,000 unit DAILY PO Last administered on 04/27/17 07: 58; Start 04/20/17 at 09:00 Docusate Sodium (Colace) 100 mg BID PO Last administered on 04/27/17 19:17; Start 04/19/17 at 21:00 Fluticasone Propionate (Flonase) 1 spray BID NS Last administered on 19:20; Start 04/19/17 at 21:00 Multi-Ingredient Ointment (Analgesic Saline) 1 fabrizio PRN QID PRN TP MUSCLE PAIN; Start 04/19/17 at 13:30 Metoprolol Tartrate (Lopressor) 25 mg BID PO Last administered on 04/23/17 07: 45; Start 04/19/17 at 21:00; Stop 04/24/17 at 14:03; Status DC Modafinil (Provigil) 100 mg QHS PO Last administered on 04/27/17 19:17; Start 04/19/17 at 21:00 Pantoprazole Sodium (Protonix) 40 mg DAILYAC PO Last administered on 07:59; Start 04/20/17 at 07:30 Sennosides (Senna) 8.6 mg BID PO Last administered on 04/27/17 19:17; Start 04/19/17 at 21:00 Insulin Detemir (Levemir) 3 units QHS SQ Last administered on 04/27/17 19:22 ; Start 04/19/17 at 21:00 Non-Formulary Medication 2,400 mg PRN QHS PRN PO CONSTIPATION; Start 04/19/17 at 13:30; Status UNV Multivitamins/ Calcium (Thera-M Plus) 1 tab DAILY PO Last administered on 04/27 08:00; Start 04/20/17 at 09:00 Polyethylene Glycol (miraLAX) 17 gm DAILY PO Last administered on 04/27/17 08 :00; Start 04/20/17 at 09:00 Quetiapine Fumarate (SEROquel) 50 mg QHS PO Last administered on 04/27/17 19: 15; Start 04/20/17 at 21:00 Medroxyprogesterone Acetate (Provera) 5 mg DAILY PO Last administered on 07:46; Start 04/22/17 at 09:00; Stop 04/25/17 at 18:26; Status DC Metoprolol Tartrate (Lopressor) 12.5 mg BID PO Last administered on 04/27/17 19:17; Start 04/24/17 at 21:00 Medroxyprogesterone Acetate (Provera) 7.5 mg DAILY PO Last administered on 07:59; Start 04/26/17 at 09:00 Active Scripts Active Reported Miralax (Polyethylene Glycol 3350) 119 Gm Powder 17 Gm PO DAILY Milk Of Magnesia (Magnesium Hydroxide) 400 Mg/5 Ml Oral.susp 2,400 Mg PO PRN QHS PRN Depakote Er (Divalproex Sodium) 250 Mg Tab.er.24h 750 Mg PO QHS Fluvoxamine Maleate 100 Mg Tablet 100 Mg PO QHS Bupropion Xl (Bupropion Hcl) 150 Mg Tab.er.24h 150 Mg PO DAILY Protonix (Pantoprazole Sodium) 40 Mg Tablet.dr 40 Mg PO DAILYAC Analgesic Saline (Methyl Salicylate/Menthol) 28 Gm Oint...g. 1 Applic TP PRN QID PRN Advanced Antacid Liquid (Mag Hydrox/Al Hydrox/Simeth) 355 Ml Oral.susp 15 Ml PO PRN AFTMEALHC PRN Levemir (Insulin Detemir) 100 Unit/1 Ml Vial 3 Unit SQ QHS Tylenol (Acetaminophen) 325 Mg Tablet 650 Mg PO PRN Q6HRS PRN Zyprexa (Olanzapine) 2.5 Mg Tablet 2.5 Mg PO DAILY Senna (Sennosides) 8.6 Mg Tablet 8.6 Mg PO BID Primidone 50 Mg Tablet 150 Mg PO BID Multiple Vitamin (Multivitamin With Minerals) 1 Each Tablet 1 Tab PO DAILY Modafinil 100 Mg Tablet 100 Mg PO QHS Metoprolol Tartrate 25 Mg Tablet 25 Mg PO BID Levetiracetam 500 Mg Tablet 1,000 Mg PO BID Fluticasone Propionate Nasal [place] (Fluticasone Propionate) 16 Gm [place].susp 1 [place] NS BID Docusate Sodium 100 Mg Capsule 100 Mg PO BID Vitamin D3 (Cholecalciferol (Vitamin D3)) 1,000 Unit Tablet 2,000 Unit PO DAILY Buspirone Hcl 5 Mg Tablet 5 Mg PO BID Diagnosis: Problems: (1) Anxiety disorder (2) Impulse control disorder (3) Psychosis, atypical (4) Schizoaffective disorder (5) Bipolar affective disorder, mixed (6) Encounter for medical screening examination (7) Borderline intellectual disability AYAKA FERNANDEZ MD Apr 27, 2017 20:27
--- NOTE | 2017-04-28 03:17 | PN ---
DATE: 04/26/2017 SUBJECTIVE: I met with the patient evening of 04/26. He has not been masturbating, appears confused, has not been sexually aggressive, though he frequently asks nursing staff for hugs, but does redirect. REVIEW OF SYSTEMS: Ambulation impaired, in wheelchair. No CV, , pulmonary, eye or ENT system symptoms on review. MENTAL STATUS EXAM: Oriented to himself. Insight, judgment, recent and remote memory, attention, concentration, fund of knowledge poor, consistent with his diagnosis mentioned in my initial note. LABORATORY DATA: Unchanged from admission. PLAN: Continue current psychotropics, may need to increase Provera in due course. I reviewed drug interactions, risk/benefit ratio favors no further change. MAN Maria Antonia FERNANDEZ MD DR: CAMERON/varun JOB#: [id number] / [id number]
[2017-04-28 06:10] VITALS: BP 129/79
[2017-04-28] MEDS: INSULIN ASPART 300 UNITS/3 ML INSULN.PEN SQ SCH ×4 (08:11→20:24)
[2017-04-28] MEDS: POLYETHYLENE GLYCOL 3350 17 GM PACKET. PO SCH (08:12)
[2017-04-28] MEDS: busPIRone 5 MG TABLET. PO SCH ×2 (08:12→20:22)
[2017-04-28] MEDS: levETIRAcetam 500 MG TABLET PO SCH ×2 (08:12→20:21)
[2017-04-28] MEDS: CHOLECALCIFEROL (VITAMIN D3) 1,000 UNIT TABLET PO SCH (08:12)
[2017-04-28] MEDS: medroxyPROGESTERone 5 MG TABLET PO SCH (08:12)
[2017-04-28] MEDS: DOCUSATE SODIUM 100 MG CAPSULE PO SCH ×2 (08:12→20:22)
[2017-04-28] MEDS: PANTOPRAZOLE 40 MG TABLET. PO SCH (08:13)
[2017-04-28] MEDS: MULTIVITAMIN with MINERAL TABLET. PO SCH (08:13)
[2017-04-28] MEDS: PRIMIDONE 50 MG TABLET PO SCH ×2 (08:13→20:23)
[2017-04-28] MEDS: METOPROLOL TART IMMED RELEASE 25 MG TABLET PO SCH ×2 (08:14→20:22)
[2017-04-28] MEDS: SENNOSIDES 8.6 MG TABLET PO SCH ×2 (08:14→20:23)
[2017-04-28] MEDS: FLUTICASONE 50MCG/NASAL SPRAY 16GM BOTTLE. NS SCH ×2 (08:15→20:25)
[2017-04-28 16:27] VITALS: BP 140/91
[2017-04-28] MEDS: MODAFINIL 100 MG TABLET PO SCH (20:21)
[2017-04-28] MEDS: DIVALPROEX ER 250 MG TAB.ER.24H. PO SCH (20:21)
[2017-04-28] MEDS: QUEtiapine 50 MG TABLET. PO SCH (20:21)
[2017-04-28] MEDS: INSULIN DETEMIR 300 UNITS/3 ML INSULN.PEN. SQ SCH (20:24)
--- NOTE | 2017-04-28 20:35 | PDOC ---
Exam Trey Demential Exam: Trey Note: Please also refer to the separate dictated note~for this date of service dictated separately.~Patient seen individually. Discussed the patient with Nursing staff reviewed the chart.~Reviewed interim history and current functioning. Reviewed vital signs,~Labs/ Radiology~and current medications noted below. Continue current treatment with the changes noted in the dictated addendum note Assessment: Vital Signs: Vital Signs Date Time Temp Pulse Resp B/P (MAP) Pulse Ox O2 Delivery O2 Flow Rate FiO2 04/28/17 20:22 74 140/91 04/28/17 16:27 98.4 20 97 04/27/17 05:58 Room Air I&O Intake and Output 04/29/17 07:00 Intake Total 1320 ml Balance 1320 ml Intake Oral 1320 ml Labs: Laboratory Tests Test 04/28/17 07:56 04/28/17 11:11 04/28/17 16:49 04/28/17 19:04 Glucose (Fingerstick) 80 mg/dL (70-99) 82 mg/dL (70-99) 126 mg/dL (70-99) H 125 mg/dL (70-99) H Current Medications: Meds: Current Medications Acetaminophen (Tylenol) 650 mg PRN Q6HRS PRN PO PAIN / TEMP; Start 04/19/17 at 12:30; Status Cancel Multi-Ingredient Ointment (Analgesic [place]) 1 fabrizio PRN QID PRN TP MUSCLE PAIN; Start 04/19/17 at 12:30; Status Cancel Al Hydroxide/Mg Hydroxide (Mylanta Plus Xs) 15 ml PRN AFTMEALHC PRN PO DYSPEPSIA; Start 04/19/17 at 12:30 Magnesium Hydroxide (Milk Of Magnesia) 2,400 mg PRN QHS PRN PO CONSTIPATION; Start 04/19/17 at 12:30 Influenza Virus Vaccine Quadrival (Fluarix Quad [id number] Syringe) 0.5 ml ONCE ONCE VAX IM Last administered on 04/20/17 13:28; Start 04/20/17 at 09:00; Stop 04/20/17 at 09:01; Status DC Pneumococcal Polyvalent Vaccine (Pneumovax 23) 0.5 ml ONCE ONCE VAX IM Last administered on 04/20/17 13:29; Start 04/20/17 at 09:00; Stop 04/20/17 at 09:01 ; Status DC Buspirone HCl (Buspar) 5 mg BID PO Last administered on 04/28/17 20:22; Start 04/19/17 at 21:00 Divalproex Sodium (Depakote Er) 750 mg QHS PO Last administered on 04/28/17 20:21; Start 04/19/17 at 21:00 Fluvoxamine Maleate (Luvox) 100 mg QHS PO Last administered on 04/28/17 20:22 ; Start 04/19/17 at 21:00 Levetiracetam (Keppra) 1,000 mg BID PO Last administered on 04/28/17 20:21; Start 04/19/17 at 21:00 Olanzapine (ZyPREXA) 2.5 mg DAILY PO Last administered on 04/21/17 08:51; Start 04/20/17 at 09:00; Stop 04/21/17 at 18:33; Status DC Primidone (Mysoline) 150 mg BID PO Last administered on 04/28/17 20:23; Start 04/19/17 at 21:00 Insulin Aspart (NovoLOG) 0-5 UNITS QIDACHS SQ Last administered on 04/21/17 17 :27; Start 04/19/17 at 16:30 Acetaminophen (Tylenol) 650 mg PRN Q6HRS PRN PO PAIN / TEMP Last administered on 04/28/17 07:17; Start 04/19/17 at 13:30 Vitamin D (Vitamin D3) 2,000 unit DAILY PO Last administered on 04/28/17 08: 12; Start 04/20/17 at 09:00 Docusate Sodium (Colace) 100 mg BID PO Last administered on 04/28/17 20:22; Start 04/19/17 at 21:00 Fluticasone Propionate (Flonase) 1 spray BID NS Last administered on 20:25; Start 04/19/17 at 21:00 Multi-Ingredient Ointment (Analgesic [place]) 1 fabrizio PRN QID PRN TP MUSCLE PAIN; Start 04/19/17 at 13:30 Metoprolol Tartrate (Lopressor) 25 mg BID PO Last administered on 04/23/17 07: 45; Start 04/19/17 at 21:00; Stop 04/24/17 at 14:03; Status DC Modafinil (Provigil) 100 mg QHS PO Last administered on 04/28/17 20:21; Start 04/19/17 at 21:00 Pantoprazole Sodium (Protonix) 40 mg DAILYAC PO Last administered on 08:13; Start 04/20/17 at 07:30 Sennosides (Senna) 8.6 mg BID PO Last administered on 04/28/17 20:23; Start 04/19/17 at 21:00 Insulin Detemir (Levemir) 3 units QHS SQ Last administered on 04/28/17 20:24 ; Start 04/19/17 at 21:00 Non-Formulary Medication 2,400 mg PRN QHS PRN PO CONSTIPATION; Start 04/19/17 at 13:30; Status UNV Multivitamins/ Calcium (Thera-M Plus) 1 tab DAILY PO Last administered on 04/28 08:13; Start 04/20/17 at 09:00 Polyethylene Glycol (miraLAX) 17 gm DAILY PO Last administered on 04/28/17 08 :12; Start 04/20/17 at 09:00 Quetiapine Fumarate (SEROquel) 50 mg QHS PO Last administered on 04/28/17 20: 21; Start 04/20/17 at 21:00 Medroxyprogesterone Acetate (Provera) 5 mg DAILY PO Last administered on 07:46; Start 04/22/17 at 09:00; Stop 04/25/17 at 18:26; Status DC Metoprolol Tartrate (Lopressor) 12.5 mg BID PO Last administered on 04/28/17 20:22; Start 04/24/17 at 21:00 Medroxyprogesterone Acetate (Provera) 7.5 mg DAILY PO Last administered on 08:12; Start 04/26/17 at 09:00 Active Scripts Active Reported Miralax (Polyethylene Glycol 3350) 119 Gm Powder 17 Gm PO DAILY Milk Of Magnesia (Magnesium Hydroxide) 400 Mg/5 Ml Oral.susp 2,400 Mg PO PRN QHS PRN Depakote Er (Divalproex Sodium) 250 Mg Tab.er.24h 750 Mg PO QHS Fluvoxamine Maleate 100 Mg Tablet 100 Mg PO QHS Bupropion Xl (Bupropion Hcl) 150 Mg Tab.er.24h 150 Mg PO DAILY Protonix (Pantoprazole Sodium) 40 Mg Tablet.dr 40 Mg PO DAILYAC Analgesic [place] (Methyl Salicylate/Menthol) 28 Gm Oint...g. 1 Applic TP PRN QID PRN Advanced Antacid Liquid (Mag Hydrox/Al Hydrox/Simeth) 355 Ml Oral.susp 15 Ml PO PRN AFTMEALHC PRN Levemir (Insulin Detemir) 100 Unit/1 Ml Vial 3 Unit SQ QHS Tylenol (Acetaminophen) 325 Mg Tablet 650 Mg PO PRN Q6HRS PRN Zyprexa (Olanzapine) 2.5 Mg Tablet 2.5 Mg PO DAILY Senna (Sennosides) 8.6 Mg Tablet 8.6 Mg PO BID Primidone 50 Mg Tablet 150 Mg PO BID Multiple Vitamin (Multivitamin With Minerals) 1 Each Tablet 1 Tab PO DAILY Modafinil 100 Mg Tablet 100 Mg PO QHS Metoprolol Tartrate 25 Mg Tablet 25 Mg PO BID Levetiracetam 500 Mg Tablet 1,000 Mg PO BID Fluticasone Propionate Nasal [place] (Fluticasone Propionate) 16 Gm [place].susp 1 [place] NS BID Docusate Sodium 100 Mg Capsule 100 Mg PO BID Vitamin D3 (Cholecalciferol (Vitamin D3)) 1,000 Unit Tablet 2,000 Unit PO DAILY Buspirone Hcl 5 Mg Tablet 5 Mg PO BID Diagnosis: Problems: (1) Anxiety disorder (2) Impulse control disorder (3) Psychosis, atypical (4) Schizoaffective disorder (5) Bipolar affective disorder, mixed (6) Encounter for medical screening examination (7) Borderline intellectual disability AYAKA FERNANDEZ MD Apr 28, 2017 20:35
[2017-04-28] MEDS: MAGNESIUM HYDROXIDE 2,400 MG/30 ML ORAL.SUSP. PO PRN (23:05)
[2017-04-29 06:11] VITALS: BP 113/74
[2017-04-29] MEDS: INSULIN ASPART 300 UNITS/3 ML INSULN.PEN SQ SCH ×4 (08:00→21:00)
[2017-04-29] MEDS: levETIRAcetam 500 MG TABLET PO SCH ×2 (08:09→20:12)
[2017-04-29] MEDS: DOCUSATE SODIUM 100 MG CAPSULE PO SCH ×2 (08:09→20:12)
[2017-04-29] MEDS: FLUTICASONE 50MCG/NASAL SPRAY 16GM BOTTLE. NS SCH ×2 (08:09→20:14)
[2017-04-29] MEDS: busPIRone 5 MG TABLET. PO SCH ×2 (08:09→20:11)
[2017-04-29] MEDS: PANTOPRAZOLE 40 MG TABLET. PO SCH (08:09)
[2017-04-29] MEDS: PRIMIDONE 50 MG TABLET PO SCH ×2 (08:10→20:13)
[2017-04-29] MEDS: POLYETHYLENE GLYCOL 3350 17 GM PACKET. PO SCH (08:10)
[2017-04-29] MEDS: medroxyPROGESTERone 5 MG TABLET PO SCH (08:10)
[2017-04-29] MEDS: SENNOSIDES 8.6 MG TABLET PO SCH ×2 (08:10→20:11)
[2017-04-29] MEDS: MULTIVITAMIN with MINERAL TABLET. PO SCH (08:11)
[2017-04-29] MEDS: CHOLECALCIFEROL (VITAMIN D3) 1,000 UNIT TABLET PO SCH (08:11)
[2017-04-29] MEDS: METOPROLOL TART IMMED RELEASE 25 MG TABLET PO SCH ×2 (09:00→20:12)
[2017-04-29 16:05] VITALS: BP 118/77
[2017-04-29] MEDS: MODAFINIL 100 MG TABLET PO SCH (20:04)
[2017-04-29] MEDS: QUEtiapine 50 MG TABLET. PO SCH (20:05)
[2017-04-29] MEDS: DIVALPROEX ER 250 MG TAB.ER.24H. PO SCH (20:11)
--- NOTE | 2017-04-29 21:34 | PDOC ---
Exam Trey Demential Exam: Trey Note: Please also refer to the separate dictated note~for this date of service dictated separately.~Patient seen individually. Discussed the patient with Nursing staff reviewed the chart.~Reviewed interim history and current functioning. Reviewed vital signs,~Labs/ Radiology~and current medications noted below. Continue current treatment with the changes noted in the dictated addendum note Assessment: Vital Signs: Vital Signs Date Time Temp Pulse Resp B/P (MAP) Pulse Ox O2 Delivery O2 Flow Rate FiO2 04/29/17 20:12 96 118/77 04/29/17 16:05 97.8 18 95 Room Air I&O Intake and Output 04/30/17 07:00 Intake Total 1080 ml Balance 1080 ml Intake Oral 1080 ml Labs: Laboratory Tests Test 04/29/17 07:16 04/29/17 11:49 04/29/17 19:11 Glucose (Fingerstick) 90 mg/dL (70-99) 179 mg/dL (70-99) H 109 mg/dL (70-99) H Current Medications: Meds: Current Medications Acetaminophen (Tylenol) 650 mg PRN Q6HRS PRN PO PAIN / TEMP; Start 04/19/17 at 12:30; Status Cancel Multi-Ingredient Ointment (Analgesic [place]) 1 fabrizio PRN QID PRN TP MUSCLE PAIN; Start 04/19/17 at 12:30; Status Cancel Al Hydroxide/Mg Hydroxide (Mylanta Plus Xs) 15 ml PRN AFTMEALHC PRN PO DYSPEPSIA; Start 04/19/17 at 12:30 Magnesium Hydroxide (Milk Of Magnesia) 2,400 mg PRN QHS PRN PO CONSTIPATION Last administered on 04/28/17 23:05; Start 04/19/17 at 12:30 Influenza Virus Vaccine Quadrival (Fluarix Quad [id number] Syringe) 0.5 ml ONCE ONCE VAX IM Last administered on 04/20/17 13:28; Start 04/20/17 at 09:00; Stop 04/20/17 at 09:01; Status DC Pneumococcal Polyvalent Vaccine (Pneumovax 23) 0.5 ml ONCE ONCE VAX IM Last administered on 04/20/17 13:29; Start 04/20/17 at 09:00; Stop 04/20/17 at 09:01 ; Status DC Buspirone HCl (Buspar) 5 mg BID PO Last administered on 04/29/17 20:11; Start 04/19/17 at 21:00 Divalproex Sodium (Depakote Er) 750 mg QHS PO Last administered on 04/29/17 20:11; Start 04/19/17 at 21:00 Fluvoxamine Maleate (Luvox) 100 mg QHS PO Last administered on 04/29/17 20:11 ; Start 04/19/17 at 21:00 Levetiracetam (Keppra) 1,000 mg BID PO Last administered on 04/29/17 20:12; Start 04/19/17 at 21:00 Olanzapine (ZyPREXA) 2.5 mg DAILY PO Last administered on 04/21/17 08:51; Start 04/20/17 at 09:00; Stop 04/21/17 at 18:33; Status DC Primidone (Mysoline) 150 mg BID PO Last administered on 04/29/17 20:13; Start 04/19/17 at 21:00 Insulin Aspart (NovoLOG) 0-5 UNITS QIDACHS SQ Last administered on 04/29/17 12:11; Start 04/19/17 at 16:30 Acetaminophen (Tylenol) 650 mg PRN Q6HRS PRN PO PAIN / TEMP Last administered on 04/28/17 07:17; Start 04/19/17 at 13:30 Vitamin D (Vitamin D3) 2,000 unit DAILY PO Last administered on 04/29/17 08: 11; Start 04/20/17 at 09:00 Docusate Sodium (Colace) 100 mg BID PO Last administered on 04/29/17 20:12; Start 04/19/17 at 21:00 Fluticasone Propionate (Flonase) 1 spray BID NS Last administered on 20:14; Start 04/19/17 at 21:00 Multi-Ingredient Ointment (Analgesic [place]) 1 fabrizio PRN QID PRN TP MUSCLE PAIN; Start 04/19/17 at 13:30 Metoprolol Tartrate (Lopressor) 25 mg BID PO Last administered on 04/23/17 07: 45; Start 04/19/17 at 21:00; Stop 04/24/17 at 14:03; Status DC Modafinil (Provigil) 100 mg QHS PO Last administered on 04/29/17 20:04; Start 04/19/17 at 21:00 Pantoprazole Sodium (Protonix) 40 mg DAILYAC PO Last administered on 08:09; Start 04/20/17 at 07:30 Sennosides (Senna) 8.6 mg BID PO Last administered on 04/29/17 20:11; Start 04/19/17 at 21:00 Insulin Detemir (Levemir) 3 units QHS SQ Last administered on 04/28/17 20:24 ; Start 04/19/17 at 21:00 Non-Formulary Medication 2,400 mg PRN QHS PRN PO CONSTIPATION; Start 04/19/17 at 13:30; Status UNV Multivitamins/ Calcium (Thera-M Plus) 1 tab DAILY PO Last administered on 04/29 08:11; Start 04/20/17 at 09:00 Polyethylene Glycol (miraLAX) 17 gm DAILY PO Last administered on 04/29/17 08 :10; Start 04/20/17 at 09:00 Quetiapine Fumarate (SEROquel) 50 mg QHS PO Last administered on 04/29/17 20: 05; Start 04/20/17 at 21:00 Medroxyprogesterone Acetate (Provera) 5 mg DAILY PO Last administered on 07:46; Start 04/22/17 at 09:00; Stop 04/25/17 at 18:26; Status DC Metoprolol Tartrate (Lopressor) 12.5 mg BID PO Last administered on 04/29/17 20:12; Start 04/24/17 at 21:00 Medroxyprogesterone Acetate (Provera) 7.5 mg DAILY PO Last administered on 08:10; Start 04/26/17 at 09:00; Stop 04/29/17 at 20:45; Status DC Medroxyprogesterone Acetate (Provera) 10 mg DAILY PO ; Start 04/30/17 at 09:00 Active Scripts Active Reported Miralax (Polyethylene Glycol 3350) 119 Gm Powder 17 Gm PO DAILY Milk Of Magnesia (Magnesium Hydroxide) 400 Mg/5 Ml Oral.susp 2,400 Mg PO PRN QHS PRN Depakote Er (Divalproex Sodium) 250 Mg Tab.er.24h 750 Mg PO QHS Fluvoxamine Maleate 100 Mg Tablet 100 Mg PO QHS Bupropion Xl (Bupropion Hcl) 150 Mg Tab.er.24h 150 Mg PO DAILY Protonix (Pantoprazole Sodium) 40 Mg Tablet.dr 40 Mg PO DAILYAC Analgesic [place] (Methyl Salicylate/Menthol) 28 Gm Oint...g. 1 Applic TP PRN QID PRN Advanced Antacid Liquid (Mag Hydrox/Al Hydrox/Simeth) 355 Ml Oral.susp 15 Ml PO PRN AFTMEALHC PRN Levemir (Insulin Detemir) 100 Unit/1 Ml Vial 3 Unit SQ QHS Tylenol (Acetaminophen) 325 Mg Tablet 650 Mg PO PRN Q6HRS PRN Zyprexa (Olanzapine) 2.5 Mg Tablet 2.5 Mg PO DAILY Senna (Sennosides) 8.6 Mg Tablet 8.6 Mg PO BID Primidone 50 Mg Tablet 150 Mg PO BID Multiple Vitamin (Multivitamin With Minerals) 1 Each Tablet 1 Tab PO DAILY Modafinil 100 Mg Tablet 100 Mg PO QHS Metoprolol Tartrate 25 Mg Tablet 25 Mg PO BID Levetiracetam 500 Mg Tablet 1,000 Mg PO BID Fluticasone Propionate Nasal [place] (Fluticasone Propionate) 16 Gm [place].susp 1 [place] NS BID Docusate Sodium 100 Mg Capsule 100 Mg PO BID Vitamin D3 (Cholecalciferol (Vitamin D3)) 1,000 Unit Tablet 2,000 Unit PO DAILY Buspirone Hcl 5 Mg Tablet 5 Mg PO BID Diagnosis: Problems: (1) Anxiety disorder (2) Impulse control disorder (3) Psychosis, atypical (4) Schizoaffective disorder (5) Bipolar affective disorder, mixed (6) Encounter for medical screening examination (7) Borderline intellectual disability AYAKA FERNANDEZ MD Apr 29, 2017 21:34
[2017-04-29] MEDS: INSULIN DETEMIR 300 UNITS/3 ML INSULN.PEN. SQ SCH (21:39)
--- NOTE | 2017-04-29 22:51 | PN ---
DATE: 04/28/2017 PSYCHIATRIC PROGRESS NOTE This late entry date of service 04/28/2017 covers elements, not covered in my initial note of 04/28/2017. SUBJECTIVE: I met with the patient in the evening of 04/28/2017. Overall, the patient remains somewhat anxious, labile in his mood, but has not been noted to be masturbating, at least not in public. REVIEW OF SYSTEMS: Ambulation impaired, in wheelchair. No CV, , pulmonary, eye, ENT system symptoms on review. Reliability poor. MENTAL STATUS EXAM: Oriented to himself. Insight, judgment, recent and remote memory, attention, concentration, fund of knowledge poor, consistent with his diagnosis mentioned in my initial note. PLAN: Continue current psychotropics mentioned in my initial note, Provera as 7.5 mg daily starting 04/29/2017. We will increase it to 10 mg a day. Maintain Depakote, Luvox, BuSpar at current dosage. Make further adjustments as clinically indicated. Reviewed drugs contractions. Risk/benefit ratio favors no further change. MAN Maria Antonia FERNANDEZ MD DR: CAMERON/varun JOB#: [id number] / [id number]
--- NOTE | 2017-04-30 01:33 | PN ---
DATE: 04/29/2017 This is late entry 04/29/2017, covers elements not covered in my initial note of 04/29/2017. SUBJECTIVE: I met with the patient evening of 04/29/2017. The patient remains withdrawn, but has not been masturbating in front of others, this is unclear if he is masturbating on his own as well. REVIEW OF SYSTEMS: Ambulation impaired. No CV, , pulmonary, eye, ENT system symptoms on review. He is in a [employer]da chair. MENTAL STATUS EXAM: Oriented to himself. Insight, judgment, recent and remote memory, attention, concentration, fund of knowledge poor, consistent with his diagnosis mentioned in my initial note. LABORATORY DATA: Reviewed. PLAN: Continue current psychotropics, reviewed drug contractions, risk/benefit ratio, favors no further change at this time. Provera was increased to 10 mg a day. MAN Maria Antonia FERNANDEZ MD DR: CAMERON/varun JOB#: [id number] / [id number]
[2017-04-30 06:15] VITALS: BP 107/65
[2017-04-30] MEDS: INSULIN ASPART 300 UNITS/3 ML INSULN.PEN SQ SCH ×4 (07:41→21:00)
[2017-04-30] MEDS: PANTOPRAZOLE 40 MG TABLET. PO SCH (07:57)
[2017-04-30] MEDS: FLUTICASONE 50MCG/NASAL SPRAY 16GM BOTTLE. NS SCH ×2 (07:58→19:41)
[2017-04-30] MEDS: busPIRone 5 MG TABLET. PO SCH ×2 (07:59→19:37)
[2017-04-30] MEDS: DOCUSATE SODIUM 100 MG CAPSULE PO SCH ×2 (08:00→19:37)
[2017-04-30] MEDS: levETIRAcetam 500 MG TABLET PO SCH ×2 (08:00→19:37)
[2017-04-30] MEDS: POLYETHYLENE GLYCOL 3350 17 GM PACKET. PO SCH (08:06)
[2017-04-30] MEDS: PRIMIDONE 50 MG TABLET PO SCH ×2 (08:06→19:39)
[2017-04-30] MEDS: medroxyPROGESTERone 5 MG TABLET PO SCH (08:08)
[2017-04-30] MEDS: CHOLECALCIFEROL (VITAMIN D3) 1,000 UNIT TABLET PO SCH (08:08)
[2017-04-30] MEDS: SENNOSIDES 8.6 MG TABLET PO SCH ×2 (08:08→19:37)
[2017-04-30] MEDS: MULTIVITAMIN with MINERAL TABLET. PO SCH (08:08)
[2017-04-30] MEDS: METOPROLOL TART IMMED RELEASE 25 MG TABLET PO SCH ×2 (09:00→19:39)
[2017-04-30 16:05] VITALS: BP 127/75
[2017-04-30] MEDS: DIVALPROEX ER 250 MG TAB.ER.24H. PO SCH (19:36)
[2017-04-30] MEDS: QUEtiapine 50 MG TABLET. PO SCH (19:37)
--- NOTE | 2017-04-30 20:40 | PDOC ---
Exam Trey Demential Exam: Trey Note: Please also refer to the separate dictated note~for this date of service dictated separately.~Patient seen individually. Discussed the patient with Nursing staff reviewed the chart.~Reviewed interim history and current functioning. Reviewed vital signs,~Labs/ Radiology~and current medications noted below. Continue current treatment with the changes noted in the dictated addendum note Assessment: Vital Signs: Vital Signs Date Time Temp Pulse Resp B/P (MAP) Pulse Ox O2 Delivery O2 Flow Rate FiO2 04/30/17 19:39 84 127/75 04/30/17 16:05 97.9 20 93 Room Air I&O Intake and Output 05/01/17 07:00 Intake Total 1560 ml Balance 1560 ml Intake Oral 1560 ml # Bowel Movements 1 Labs: Laboratory Tests Test 04/30/17 07:31 04/30/17 11:25 04/30/17 16:44 04/30/17 19:20 Glucose (Fingerstick) 84 mg/dL (70-99) 88 mg/dL (70-99) 112 mg/dL (70-99) H 147 mg/dL (70-99) H Current Medications: Meds: Current Medications Acetaminophen (Tylenol) 650 mg PRN Q6HRS PRN PO PAIN / TEMP; Start 04/19/17 at 12:30; Status Cancel Multi-Ingredient Ointment (Analgesic [place]) 1 fabrizio PRN QID PRN TP MUSCLE PAIN; Start 04/19/17 at 12:30; Status Cancel Al Hydroxide/Mg Hydroxide (Mylanta Plus Xs) 15 ml PRN AFTMEALHC PRN PO DYSPEPSIA; Start 04/19/17 at 12:30 Magnesium Hydroxide (Milk Of Magnesia) 2,400 mg PRN QHS PRN PO CONSTIPATION Last administered on 04/28/17 23:05; Start 04/19/17 at 12:30 Influenza Virus Vaccine Quadrival (Fluarix Quad 2452-5402 Syringe) 0.5 ml ONCE ONCE VAX IM Last administered on 04/20/17 13:28; Start 04/20/17 at 09:00; Stop 04/20/17 at 09:01; Status DC Pneumococcal Polyvalent Vaccine (Pneumovax 23) 0.5 ml ONCE ONCE VAX IM Last administered on 04/20/17 13:29; Start 04/20/17 at 09:00; Stop 04/20/17 at 09:01 ; Status DC Buspirone HCl (Buspar) 5 mg BID PO Last administered on 04/30/17 19:37; Start 04/19/17 at 21:00 Divalproex Sodium (Depakote Er) 750 mg QHS PO Last administered on 04/30/17 19:36; Start 04/19/17 at 21:00 Fluvoxamine Maleate (Luvox) 100 mg QHS PO Last administered on 04/30/17 19:39 ; Start 04/19/17 at 21:00 Levetiracetam (Keppra) 1,000 mg BID PO Last administered on 04/30/17 19:37; Start 04/19/17 at 21:00 Olanzapine (ZyPREXA) 2.5 mg DAILY PO Last administered on 04/21/17 08:51; Start 04/20/17 at 09:00; Stop 04/21/17 at 18:33; Status DC Primidone (Mysoline) 150 mg BID PO Last administered on 04/30/17 19:39; Start 04/19/17 at 21:00 Insulin Aspart (NovoLOG) 0-5 UNITS QIDACHS SQ Last administered on 04/29/17 12:11; Start 04/19/17 at 16:30 Acetaminophen (Tylenol) 650 mg PRN Q6HRS PRN PO PAIN / TEMP Last administered on 04/28/17 07:17; Start 04/19/17 at 13:30 Vitamin D (Vitamin D3) 2,000 unit DAILY PO Last administered on 04/30/17 08: 08; Start 04/20/17 at 09:00 Docusate Sodium (Colace) 100 mg BID PO Last administered on 04/30/17 19:37; Start 04/19/17 at 21:00 Fluticasone Propionate (Flonase) 1 spray BID NS Last administered on 19:41; Start 04/19/17 at 21:00 Multi-Ingredient Ointment (Analgesic [place]) 1 fabrizio PRN QID PRN TP MUSCLE PAIN; Start 04/19/17 at 13:30 Metoprolol Tartrate (Lopressor) 25 mg BID PO Last administered on 04/23/17 07: 45; Start 04/19/17 at 21:00; Stop 04/24/17 at 14:03; Status DC Modafinil (Provigil) 100 mg QHS PO Last administered on 04/29/17 20:04; Start 04/19/17 at 21:00; Stop 04/30/17 at 19:09; Status DC Pantoprazole Sodium (Protonix) 40 mg DAILYAC PO Last administered on 07:57; Start 04/20/17 at 07:30 Sennosides (Senna) 8.6 mg BID PO Last administered on 04/30/17 19:37; Start 04/19/17 at 21:00 Insulin Detemir (Levemir) 3 units QHS SQ Last administered on 04/29/17 21:39 ; Start 04/19/17 at 21:00 Non-Formulary Medication 2,400 mg PRN QHS PRN PO CONSTIPATION; Start 04/19/17 at 13:30; Status UNV Multivitamins/ Calcium (Thera-M Plus) 1 tab DAILY PO Last administered on 04/30 08:08; Start 04/20/17 at 09:00 Polyethylene Glycol (miraLAX) 17 gm DAILY PO Last administered on 04/30/17 08 :06; Start 04/20/17 at 09:00 Quetiapine Fumarate (SEROquel) 50 mg QHS PO Last administered on 04/30/17 19: 37; Start 04/20/17 at 21:00 Medroxyprogesterone Acetate (Provera) 5 mg DAILY PO Last administered on 07:46; Start 04/22/17 at 09:00; Stop 04/25/17 at 18:26; Status DC Metoprolol Tartrate (Lopressor) 12.5 mg BID PO Last administered on 04/30/17 19:39; Start 04/24/17 at 21:00 Medroxyprogesterone Acetate (Provera) 7.5 mg DAILY PO Last administered on 08:10; Start 04/26/17 at 09:00; Stop 04/29/17 at 20:45; Status DC Medroxyprogesterone Acetate (Provera) 10 mg DAILY PO Last administered on 04/30 08:08; Start 04/30/17 at 09:00 Active Scripts Active Reported Miralax (Polyethylene Glycol 3350) 119 Gm Powder 17 Gm PO DAILY Milk Of Magnesia (Magnesium Hydroxide) 400 Mg/5 Ml Oral.susp 2,400 Mg PO PRN QHS PRN Depakote Er (Divalproex Sodium) 250 Mg Tab.er.24h 750 Mg PO QHS Fluvoxamine Maleate 100 Mg Tablet 100 Mg PO QHS Bupropion Xl (Bupropion Hcl) 150 Mg Tab.er.24h 150 Mg PO DAILY Protonix (Pantoprazole Sodium) 40 Mg Tablet.dr 40 Mg PO DAILYAC Analgesic [place] (Methyl Salicylate/Menthol) 28 Gm Oint...g. 1 Applic TP PRN QID PRN Advanced Antacid Liquid (Mag Hydrox/Al Hydrox/Simeth) 355 Ml Oral.susp 15 Ml PO PRN AFTMEALHC PRN Levemir (Insulin Detemir) 100 Unit/1 Ml Vial 3 Unit SQ QHS Tylenol (Acetaminophen) 325 Mg Tablet 650 Mg PO PRN Q6HRS PRN Zyprexa (Olanzapine) 2.5 Mg Tablet 2.5 Mg PO DAILY Senna (Sennosides) 8.6 Mg Tablet 8.6 Mg PO BID Primidone 50 Mg Tablet 150 Mg PO BID Multiple Vitamin (Multivitamin With Minerals) 1 Each Tablet 1 Tab PO DAILY Modafinil 100 Mg Tablet 100 Mg PO QHS Metoprolol Tartrate 25 Mg Tablet 25 Mg PO BID Levetiracetam 500 Mg Tablet 1,000 Mg PO BID Fluticasone Propionate Nasal [place] (Fluticasone Propionate) 16 Gm [place].susp 1 [place] NS BID Docusate Sodium 100 Mg Capsule 100 Mg PO BID Vitamin D3 (Cholecalciferol (Vitamin D3)) 1,000 Unit Tablet 2,000 Unit PO DAILY Buspirone Hcl 5 Mg Tablet 5 Mg PO BID Diagnosis: Problems: (1) Anxiety disorder (2) Impulse control disorder (3) Psychosis, atypical (4) Schizoaffective disorder (5) Bipolar affective disorder, mixed (6) Encounter for medical screening examination (7) Borderline intellectual disability AYAKA FERNANDEZ MD Apr 30, 2017 20:40
[2017-04-30] MEDS: INSULIN DETEMIR 300 UNITS/3 ML INSULN.PEN. SQ SCH (21:24)
--- NOTE | 2017-05-01 05:30 | PN ---
DATE: 04/27/2017 This late entry 04/27/2017 covers elements not covered in my initial note of 04/27/2017. I met with the patient evening of 04/27/2017 for this evaluation and patient was staffed at treatment team meeting with the entire team morning of 04/27/2017. The patient continues to masturbate in his room, less so in the common area. He still grabs at nursing staff, tries to pull them. Female nursing staff is close to him, but redirects. REVIEW OF SYSTEMS: Ambulation impaired, in wheelchair. No CV, , pulmonary, eye, ENT system symptoms on review. MENTAL STATUS EXAM: Oriented to himself. Insight, judgment, recent and remote memory, attention, concentration, fund of knowledge poor, consistent with his diagnosis. Speech moderate latency, has a sing song tone. Abstraction fair, computation impaired, attention span and short. IMPRESSION: Unchanged from initial note. PLAN: Continue current psychotropics. Depakote ER 750 mg at bedtime, Luvox 100 mg a day, BuSpar 5 mg b.i.d., Provera 7.5 mg daily. Make further adjustments in the psychotropics as clinically indicated. AYAKA FERNANDEZ MD DR: CAMERON/varun JOB#: [id number] / [id number]
[2017-05-01 07:13] VITALS: BP 111/70
[2017-05-01] MEDS: INSULIN ASPART 300 UNITS/3 ML INSULN.PEN SQ SCH ×4 (07:30→19:29)
[2017-05-01] MEDS: PANTOPRAZOLE 40 MG TABLET. PO SCH (07:52)
[2017-05-01] MEDS: busPIRone 5 MG TABLET. PO SCH ×2 (07:52→19:15)
[2017-05-01] MEDS: FLUTICASONE 50MCG/NASAL SPRAY 16GM BOTTLE. NS SCH ×2 (07:52→19:18)
[2017-05-01] MEDS: DOCUSATE SODIUM 100 MG CAPSULE PO SCH ×2 (07:53→19:16)
[2017-05-01] MEDS: medroxyPROGESTERone 5 MG TABLET PO SCH (07:53)
[2017-05-01] MEDS: PRIMIDONE 50 MG TABLET PO SCH ×2 (07:53→19:15)
[2017-05-01] MEDS: levETIRAcetam 500 MG TABLET PO SCH ×2 (07:53→19:16)
[2017-05-01] MEDS: SENNOSIDES 8.6 MG TABLET PO SCH ×2 (07:53→19:15)
[2017-05-01] MEDS: MULTIVITAMIN with MINERAL TABLET. PO SCH (07:53)
[2017-05-01] MEDS: POLYETHYLENE GLYCOL 3350 17 GM PACKET. PO SCH (07:53)
[2017-05-01] MEDS: CHOLECALCIFEROL (VITAMIN D3) 1,000 UNIT TABLET PO SCH (07:54)
[2017-05-01] MEDS: METOPROLOL TART IMMED RELEASE 25 MG TABLET PO SCH ×2 (09:00→19:23)
[2017-05-01 16:02] VITALS: BP 96/58
[2017-05-01] MEDS: QUEtiapine 50 MG TABLET. PO SCH (19:14)
[2017-05-01] MEDS: DIVALPROEX ER 250 MG TAB.ER.24H. PO SCH (19:15)
[2017-05-01] MEDS: INSULIN DETEMIR 300 UNITS/3 ML INSULN.PEN. SQ SCH (19:28)
--- NOTE | 2017-05-01 21:17 | PDOC ---
Exam Trey Demential Exam: Trey Note: Please also refer to the separate dictated note~for this date of service dictated separately.~Patient seen individually. Discussed the patient with Nursing staff reviewed the chart.~Reviewed interim history and current functioning. Reviewed vital signs,~Labs/ Radiology~and current medications noted below. Continue current treatment with the changes noted in the dictated addendum note Assessment: Vital Signs: Vital Signs Date Time Temp Pulse Resp B/P (MAP) Pulse Ox O2 Delivery O2 Flow Rate FiO2 05/01/17 19:23 87 116/56 05/01/17 16:02 97.3 16 93 Room Air I&O Intake and Output 05/02/17 07:00 Intake Total 1440 ml Balance 1440 ml Intake Oral 1440 ml Labs: Laboratory Tests Test 05/01/17 07:47 05/01/17 11:42 05/01/17 17:02 05/01/17 19:23 Glucose (Fingerstick) 92 mg/dL (70-99) 88 mg/dL (70-99) 103 mg/dL (70-99) H 128 mg/dL (70-99) H Current Medications: Meds: Current Medications Acetaminophen (Tylenol) 650 mg PRN Q6HRS PRN PO PAIN / TEMP; Start 04/19/17 at 12:30; Status Cancel Multi-Ingredient Ointment (Analgesic [place]) 1 fabrizio PRN QID PRN TP MUSCLE PAIN; Start 04/19/17 at 12:30; Status Cancel Al Hydroxide/Mg Hydroxide (Mylanta Plus Xs) 15 ml PRN AFTMEALHC PRN PO DYSPEPSIA; Start 04/19/17 at 12:30 Magnesium Hydroxide (Milk Of Magnesia) 2,400 mg PRN QHS PRN PO CONSTIPATION Last administered on 04/28/17 23:05; Start 04/19/17 at 12:30 Influenza Virus Vaccine Quadrival (Fluarix Quad [id number] Syringe) 0.5 ml ONCE ONCE VAX IM Last administered on 04/20/17 13:28; Start 04/20/17 at 09:00; Stop 04/20/17 at 09:01; Status DC Pneumococcal Polyvalent Vaccine (Pneumovax 23) 0.5 ml ONCE ONCE VAX IM Last administered on 04/20/17 13:29; Start 04/20/17 at 09:00; Stop 04/20/17 at 09:01 ; Status DC Buspirone HCl (Buspar) 5 mg BID PO Last administered on 05/01/17 19:15; Start 04/19/17 at 21:00 Divalproex Sodium (Depakote Er) 750 mg QHS PO Last administered on 05/01/17 19:15; Start 04/19/17 at 21:00 Fluvoxamine Maleate (Luvox) 100 mg QHS PO Last administered on 05/01/17 19:15 ; Start 04/19/17 at 21:00 Levetiracetam (Keppra) 1,000 mg BID PO Last administered on 05/01/17 19:16; Start 04/19/17 at 21:00 Olanzapine (ZyPREXA) 2.5 mg DAILY PO Last administered on 04/21/17 08:51; Start 04/20/17 at 09:00; Stop 04/21/17 at 18:33; Status DC Primidone (Mysoline) 150 mg BID PO Last administered on 05/01/17 19:15; Start 04/19/17 at 21:00 Insulin Aspart (NovoLOG) 0-5 UNITS QIDACHS SQ Last administered on 04/29/17 12:11; Start 04/19/17 at 16:30 Acetaminophen (Tylenol) 650 mg PRN Q6HRS PRN PO PAIN / TEMP Last administered on 04/28/17 07:17; Start 04/19/17 at 13:30 Vitamin D (Vitamin D3) 2,000 unit DAILY PO Last administered on 05/01/17 07: 54; Start 04/20/17 at 09:00 Docusate Sodium (Colace) 100 mg BID PO Last administered on 05/01/17 19:16; Start 04/19/17 at 21:00 Fluticasone Propionate (Flonase) 1 spray BID NS Last administered on 19:18; Start 04/19/17 at 21:00 Multi-Ingredient Ointment (Analgesic [place]) 1 fabrizio PRN QID PRN TP MUSCLE PAIN; Start 04/19/17 at 13:30 Metoprolol Tartrate (Lopressor) 25 mg BID PO Last administered on 04/23/17 07: 45; Start 04/19/17 at 21:00; Stop 04/24/17 at 14:03; Status DC Modafinil (Provigil) 100 mg QHS PO Last administered on 04/29/17 20:04; Start 04/19/17 at 21:00; Stop 04/30/17 at 19:09; Status DC Pantoprazole Sodium (Protonix) 40 mg DAILYAC PO Last administered on 07:52; Start 04/20/17 at 07:30 Sennosides (Senna) 8.6 mg BID PO Last administered on 05/01/17 19:15; Start 04/19/17 at 21:00 Insulin Detemir (Levemir) 3 units QHS SQ Last administered on 05/01/17 19:28 ; Start 04/19/17 at 21:00 Non-Formulary Medication 2,400 mg PRN QHS PRN PO CONSTIPATION; Start 04/19/17 at 13:30; Status UNV Multivitamins/ Calcium (Thera-M Plus) 1 tab DAILY PO Last administered on 05/01 07:53; Start 04/20/17 at 09:00 Polyethylene Glycol (miraLAX) 17 gm DAILY PO Last administered on 05/01/17 07 :53; Start 04/20/17 at 09:00 Quetiapine Fumarate (SEROquel) 50 mg QHS PO Last administered on 05/01/17 19: 14; Start 04/20/17 at 21:00 Medroxyprogesterone Acetate (Provera) 5 mg DAILY PO Last administered on 07:46; Start 04/22/17 at 09:00; Stop 04/25/17 at 18:26; Status DC Metoprolol Tartrate (Lopressor) 12.5 mg BID PO Last administered on 05/01/17 19:23; Start 04/24/17 at 21:00 Medroxyprogesterone Acetate (Provera) 7.5 mg DAILY PO Last administered on 08:10; Start 04/26/17 at 09:00; Stop 04/29/17 at 20:45; Status DC Medroxyprogesterone Acetate (Provera) 10 mg DAILY PO Last administered on 10/16 /17at 07:53; Start 04/30/17 at 09:00 Active Scripts Active Reported Miralax (Polyethylene Glycol 3350) 119 Gm Powder 17 Gm PO DAILY Milk Of Magnesia (Magnesium Hydroxide) 400 Mg/5 Ml Oral.susp 2,400 Mg PO PRN QHS PRN Depakote Er (Divalproex Sodium) 250 Mg Tab.er.24h 750 Mg PO QHS Fluvoxamine Maleate 100 Mg Tablet 100 Mg PO QHS Bupropion Xl (Bupropion Hcl) 150 Mg Tab.er.24h 150 Mg PO DAILY Protonix (Pantoprazole Sodium) 40 Mg Tablet.dr 40 Mg PO DAILYAC Analgesic [place] (Methyl Salicylate/Menthol) 28 Gm Oint...g. 1 Applic TP PRN QID PRN Advanced Antacid Liquid (Mag Hydrox/Al Hydrox/Simeth) 355 Ml Oral.susp 15 Ml PO PRN AFTMEALHC PRN Levemir (Insulin Detemir) 100 Unit/1 Ml Vial 3 Unit SQ QHS Tylenol (Acetaminophen) 325 Mg Tablet 650 Mg PO PRN Q6HRS PRN Zyprexa (Olanzapine) 2.5 Mg Tablet 2.5 Mg PO DAILY Senna (Sennosides) 8.6 Mg Tablet 8.6 Mg PO BID Primidone 50 Mg Tablet 150 Mg PO BID Multiple Vitamin (Multivitamin With Minerals) 1 Each Tablet 1 Tab PO DAILY Modafinil 100 Mg Tablet 100 Mg PO QHS Metoprolol Tartrate 25 Mg Tablet 25 Mg PO BID Levetiracetam 500 Mg Tablet 1,000 Mg PO BID Fluticasone Propionate Nasal [place] (Fluticasone Propionate) 16 Gm [place].susp 1 [place] NS BID Docusate Sodium 100 Mg Capsule 100 Mg PO BID Vitamin D3 (Cholecalciferol (Vitamin D3)) 1,000 Unit Tablet 2,000 Unit PO DAILY Buspirone Hcl 5 Mg Tablet 5 Mg PO BID Diagnosis: Problems: (1) Anxiety disorder (2) Impulse control disorder (3) Psychosis, atypical (4) Schizoaffective disorder (5) Bipolar affective disorder, mixed (6) Encounter for medical screening examination (7) Borderline intellectual disability AYAKA FERNANDEZ MD May 01, 2017 21:17
--- NOTE | 2017-05-01 21:54 | PN ---
DATE: 04/30/2017 This late entry 04/30/2017 covers elements not covered in my initial note of 04/30/2017. SUBJECTIVE: I met with the patient evening of 04/30/2017 for this evaluation. The patient is on Provigil at night and we will go ahead and stop it. We may consider starting it in the morning if he is overly sedated. REVIEW OF SYSTEMS: No overt sexually inappropriate behaviors or public masturbation is noted. REVIEW OF SYSTEMS: Ambulation impaired, in wheelchair. No CV, , pulmonary, eye, ENT system symptoms on review. Reliability poor. MENTAL STATUS EXAM: Oriented to himself and situation. Speech moderate latency, often responses monosyllabic. Abstraction fair, computation impaired, language function intact, attention span short, mood and affect somewhat withdrawn. LABORATORY DATA: Reviewed. IMPRESSION: Unchanged from initial note. PLAN: Continue current psychotropics. Reviewed drug interactions. Risk/benefit ratio favors no further change. Valproic acid level last checked was 27, subtherapeutic, but clinically adequate despite being low. MAN Maria Antonia FERNANDEZ MD DR: CAMERON/varun JOB#: [id number] / [id number]
[2017-05-02 06:09] VITALS: BP 131/79
[2017-05-02] MEDS: INSULIN ASPART 300 UNITS/3 ML INSULN.PEN SQ SCH ×4 (07:30→20:05)
[2017-05-02] MEDS: medroxyPROGESTERone 5 MG TABLET PO SCH (07:49)
[2017-05-02] MEDS: POLYETHYLENE GLYCOL 3350 17 GM PACKET. PO SCH (07:49)
[2017-05-02] MEDS: CHOLECALCIFEROL (VITAMIN D3) 1,000 UNIT TABLET PO SCH (07:50)
[2017-05-02] MEDS: levETIRAcetam 500 MG TABLET PO SCH ×2 (07:50→19:52)
[2017-05-02] MEDS: MULTIVITAMIN with MINERAL TABLET. PO SCH (07:50)
[2017-05-02] MEDS: PANTOPRAZOLE 40 MG TABLET. PO SCH (07:50)
[2017-05-02] MEDS: PRIMIDONE 50 MG TABLET PO SCH ×2 (07:51→20:04)
[2017-05-02] MEDS: SENNOSIDES 8.6 MG TABLET PO SCH ×2 (07:51→19:52)
[2017-05-02] MEDS: busPIRone 5 MG TABLET. PO SCH ×2 (07:51→19:52)
[2017-05-02] MEDS: DOCUSATE SODIUM 100 MG CAPSULE PO SCH ×2 (07:51→19:52)
[2017-05-02] MEDS: METOPROLOL TART IMMED RELEASE 25 MG TABLET PO SCH ×2 (07:52→20:03)
[2017-05-02] MEDS: FLUTICASONE 50MCG/NASAL SPRAY 16GM BOTTLE. NS SCH ×2 (07:53→20:12)
[2017-05-02] MEDS: MAGNESIUM HYDROXIDE 2,400 MG/30 ML ORAL.SUSP. PO PRN (08:05)
[2017-05-02 10:08] LABS: BASO % 1 % (0-3); EOS # 0.2 x10^3/uL (0.0-0.7); EOS % 4 % (0-3); HEMATOCRIT 45.6 % (39.0-53.0); HEMOGLOBIN 15.7 g/dL (13.0-17.5); LYMPH # 0.9 x10^3/uL (1.0-4.8); LYMPH % 20 % (24-48); MEAN CORPUSCULAR HEMOGLOBIN 33 pg (25-35); MEAN CORPUSCULAR HGB CONC 35 g/dL (31-37); MEAN CORPUSCULAR VOLUME 94 fL (79-100); MONO # 0.5 x10^3/uL (0.0-1.1); MONO % 10 % (0-9); NEUT % 65 % (31-73); PLATELET COUNT 203 x10^3/uL (140-400); RED BLOOD COUNT 4.84 x10^6/uL (4.30-5.70); RED CELL DISTRIBUTION WIDTH 15.3 % (11.5-14.5); WHITE BLOOD COUNT 4.6 x10^3/uL (4.0-11.0)
[2017-05-02 10:27] LABS: ALBUMIN 3.6 g/dL (3.4-5.0); ALBUMIN/GLOBULIN RATIO 1.1 (1.0-1.7); CALCIUM 9.5 mg/dL (8.5-10.1); CREATININE 0.9 mg/dL (0.7-1.3); GFR 101.2; MAGNESIUM 2.3 mg/dL (1.8-2.4); POTASSIUM 4.5 mmol/L (3.5-5.1); TOTAL BILIRUBIN 0.3 mg/dL (0.2-1.0); TOTAL PROTEIN 6.9 g/dL (6.4-8.2)
[2017-05-02 15:56] VITALS: BP 105/73
[2017-05-02] MEDS: QUEtiapine 50 MG TABLET. PO SCH (19:52)
[2017-05-02] MEDS: DIVALPROEX ER 250 MG TAB.ER.24H. PO SCH (20:03)
[2017-05-02] MEDS: INSULIN DETEMIR 300 UNITS/3 ML INSULN.PEN. SQ SCH (20:10)
--- NOTE | 2017-05-02 20:12 | PDOC ---
Exam Trey Demential Exam: Trey Note: Please also refer to the separate dictated note~for this date of service dictated separately.~Patient seen individually. Discussed the patient with Nursing staff reviewed the chart.~Reviewed interim history and current functioning. Reviewed vital signs,~Labs/ Radiology~and current medications noted below. Continue current treatment with the changes noted in the dictated addendum note Assessment: Vital Signs: Vital Signs Date Time Temp Pulse Resp B/P (MAP) Pulse Ox O2 Delivery O2 Flow Rate FiO2 05/02/17 20:03 82 134/79 05/02/17 15:56 98.1 16 98 05/01/17 16:02 Room Air I&O Intake and Output 05/03/17 07:00 Intake Total 1320 ml Balance 1320 ml Intake Oral 1320 ml Labs: Laboratory Tests Test 05/02/17 07:28 05/02/17 09:35 05/02/17 11:26 05/02/17 16:02 Glucose (Fingerstick) 85 mg/dL (70-99) 90 mg/dL (70-99) 101 mg/dL (70-99) H White Blood Count 4.6 x10^3/uL (4.0-11.0) Red Blood Count 4.84 x10^6/uL (4.30-5.70) Hemoglobin 15.7 g/dL (13.0-17.5) Hematocrit 45.6 % (39.0-53.0) Mean Corpuscular Volume 94 fL (79-100) Mean Corpuscular Hemoglobin 33 pg (25-35) Mean Corpuscular Hemoglobin Concent 35 g/dL (31-37) Red Cell Distribution Width 15.3 % (11.5-14.5) H Platelet Count 203 x10^3/uL (140-400) Neutrophils (%) (Auto) 65 % (31-73) Lymphocytes (%) (Auto) 20 % (24-48) L Monocytes (%) (Auto) 10 % (0-9) H Eosinophils (%) (Auto) 4 % (0-3) H Basophils (%) (Auto) 1 % (0-3) Neutrophils # (Auto) 3.0 x10^3uL (1.8-7.7) Lymphocytes # (Auto) 0.9 x10^3/uL (1.0-4.8) L Monocytes # (Auto) 0.5 x10^3/uL (0.0-1.1) Eosinophils # (Auto) 0.2 x10^3/uL (0.0-0.7) Basophils # (Auto) 0.0 x10^3/uL (0.0-0.2) Sodium Level 139 mmol/L (136-145) Potassium Level 4.5 mmol/L (3.5-5.1) Chloride Level 102 mmol/L (98-107) Carbon Dioxide Level 34 mmol/L (21-32) H Anion Gap 3 (6-14) L Blood Urea Nitrogen 15 mg/dL (8-26) Creatinine 0.9 mg/dL (0.7-1.3) Estimated GFR (Cockcroft-Gault) 101.2 BUN/Creatinine Ratio 17 (6-20) Glucose Level 88 mg/dL (70-99) Calcium Level 9.5 mg/dL (8.5-10.1) Magnesium Level 2.3 mg/dL (1.8-2.4) Total Bilirubin 0.3 mg/dL (0.2-1.0) Aspartate Amino Transferase (AST) 12 U/L (15-37) L Alanine Aminotransferase (ALT) 26 U/L (16-63) Alkaline Phosphatase 73 U/L (46-116) Total Protein 6.9 g/dL (6.4-8.2) Albumin 3.6 g/dL (3.4-5.0) Albumin/Globulin Ratio 1.1 (1.0-1.7) Test 05/02/17 19:06 Glucose (Fingerstick) 108 mg/dL (70-99) H Current Medications: Meds: Current Medications Acetaminophen (Tylenol) 650 mg PRN Q6HRS PRN PO PAIN / TEMP; Start 04/19/17 at 12:30; Status Cancel Multi-Ingredient Ointment (Analgesic [place]) 1 fabrizio PRN QID PRN TP MUSCLE PAIN; Start 04/19/17 at 12:30; Status Cancel Al Hydroxide/Mg Hydroxide (Mylanta Plus Xs) 15 ml PRN AFTMEALHC PRN PO DYSPEPSIA; Start 04/19/17 at 12:30 Magnesium Hydroxide (Milk Of Magnesia) 2,400 mg PRN QHS PRN PO CONSTIPATION Last administered on 05/02/17 08:05; Start 04/19/17 at 12:30 Influenza Virus Vaccine Quadrival (Fluarix Quad [id number] Syringe) 0.5 ml ONCE ONCE VAX IM Last administered on 04/20/17 13:28; Start 04/20/17 at 09:00; Stop 04/20/17 at 09:01; Status DC Pneumococcal Polyvalent Vaccine (Pneumovax 23) 0.5 ml ONCE ONCE VAX IM Last administered on 04/20/17 13:29; Start 04/20/17 at 09:00; Stop 04/20/17 at 09:01 ; Status DC Buspirone HCl (Buspar) 5 mg BID PO Last administered on 05/02/17 19:52; Start 04/19/17 at 21:00 Divalproex Sodium (Depakote Er) 750 mg QHS PO Last administered on 05/02/17 20:03; Start 04/19/17 at 21:00 Fluvoxamine Maleate (Luvox) 100 mg QHS PO Last administered on 05/02/17 19:52 ; Start 04/19/17 at 21:00 Levetiracetam (Keppra) 1,000 mg BID PO Last administered on 05/02/17 19:52; Start 04/19/17 at 21:00 Olanzapine (ZyPREXA) 2.5 mg DAILY PO Last administered on 04/21/17 08:51; Start 04/20/17 at 09:00; Stop 04/21/17 at 18:33; Status DC Primidone (Mysoline) 150 mg BID PO Last administered on 05/02/17 20:04; Start 04/19/17 at 21:00 Insulin Aspart (NovoLOG) 0-5 UNITS QIDACHS SQ Last administered on 04/29/17 12:11; Start 04/19/17 at 16:30 Acetaminophen (Tylenol) 650 mg PRN Q6HRS PRN PO PAIN / TEMP Last administered on 04/28/17 07:17; Start 04/19/17 at 13:30 Vitamin D (Vitamin D3) 2,000 unit DAILY PO Last administered on 05/02/17 07: 50; Start 04/20/17 at 09:00 Docusate Sodium (Colace) 100 mg BID PO Last administered on 05/02/17 19:52; Start 04/19/17 at 21:00 Fluticasone Propionate (Flonase) 1 spray BID NS Last administered on 07:53; Start 04/19/17 at 21:00 Multi-Ingredient Ointment (Analgesic [place]) 1 fabrizio PRN QID PRN TP MUSCLE PAIN; Start 04/19/17 at 13:30 Metoprolol Tartrate (Lopressor) 25 mg BID PO Last administered on 04/23/17 07: 45; Start 04/19/17 at 21:00; Stop 04/24/17 at 14:03; Status DC Modafinil (Provigil) 100 mg QHS PO Last administered on 04/29/17 20:04; Start 04/19/17 at 21:00; Stop 04/30/17 at 19:09; Status DC Pantoprazole Sodium (Protonix) 40 mg DAILYAC PO Last administered on 07:50; Start 04/20/17 at 07:30 Sennosides (Senna) 8.6 mg BID PO Last administered on 05/02/17 19:52; Start 04/19/17 at 21:00 Insulin Detemir (Levemir) 3 units QHS SQ Last administered on 05/01/17 19:28 ; Start 04/19/17 at 21:00 Non-Formulary Medication 2,400 mg PRN QHS PRN PO CONSTIPATION; Start 04/19/17 at 13:30; Status UNV Multivitamins/ Calcium (Thera-M Plus) 1 tab DAILY PO Last administered on 05/02 07:50; Start 04/20/17 at 09:00 Polyethylene Glycol (miraLAX) 17 gm DAILY PO Last administered on 05/02/17 07 :49; Start 04/20/17 at 09:00 Quetiapine Fumarate (SEROquel) 50 mg QHS PO Last administered on 05/02/17 19: 52; Start 04/20/17 at 21:00 Medroxyprogesterone Acetate (Provera) 5 mg DAILY PO Last administered on 07:46; Start 04/22/17 at 09:00; Stop 10/10/17 at 18:26; Status DC Metoprolol Tartrate (Lopressor) 12.5 mg BID PO Last administered on 05/02/17 20:03; Start 04/24/17 at 21:00 Medroxyprogesterone Acetate (Provera) 7.5 mg DAILY PO Last administered on 08:10; Start 04/26/17 at 09:00; Stop 04/29/17 at 20:45; Status DC Medroxyprogesterone Acetate (Provera) 10 mg DAILY PO Last administered on 05/02 07:49; Start 04/30/17 at 09:00 Active Scripts Active Reported Miralax (Polyethylene Glycol 3350) 119 Gm Powder 17 Gm PO DAILY Milk Of Magnesia (Magnesium Hydroxide) 400 Mg/5 Ml Oral.susp 2,400 Mg PO PRN QHS PRN Depakote Er (Divalproex Sodium) 250 Mg Tab.er.24h 750 Mg PO QHS Fluvoxamine Maleate 100 Mg Tablet 100 Mg PO QHS Bupropion Xl (Bupropion Hcl) 150 Mg Tab.er.24h 150 Mg PO DAILY Protonix (Pantoprazole Sodium) 40 Mg Tablet.dr 40 Mg PO DAILYAC Analgesic [place] (Methyl Salicylate/Menthol) 28 Gm Oint...g. 1 Applic TP PRN QID PRN Advanced Antacid Liquid (Mag Hydrox/Al Hydrox/Simeth) 355 Ml Oral.susp 15 Ml PO PRN AFTMEALHC PRN Levemir (Insulin Detemir) 100 Unit/1 Ml Vial 3 Unit SQ QHS Tylenol (Acetaminophen) 325 Mg Tablet 650 Mg PO PRN Q6HRS PRN Zyprexa (Olanzapine) 2.5 Mg Tablet 2.5 Mg PO DAILY Senna (Sennosides) 8.6 Mg Tablet 8.6 Mg PO BID Primidone 50 Mg Tablet 150 Mg PO BID Multiple Vitamin (Multivitamin With Minerals) 1 Each Tablet 1 Tab PO DAILY Modafinil 100 Mg Tablet 100 Mg PO QHS Metoprolol Tartrate 25 Mg Tablet 25 Mg PO BID Levetiracetam 500 Mg Tablet 1,000 Mg PO BID Fluticasone Propionate Nasal [place] (Fluticasone Propionate) 16 Gm [place].susp 1 [place] NS BID Docusate Sodium 100 Mg Capsule 100 Mg PO BID Vitamin D3 (Cholecalciferol (Vitamin D3)) 1,000 Unit Tablet 2,000 Unit PO DAILY Buspirone Hcl 5 Mg Tablet 5 Mg PO BID Diagnosis: Problems: (1) Anxiety disorder (2) Impulse control disorder (3) Psychosis, atypical (4) Schizoaffective disorder (5) Bipolar affective disorder, mixed (6) Encounter for medical screening examination (7) Borderline intellectual disability AYAKA FERNANDEZ MD May 02, 2017 20:12
--- NOTE | 2017-05-03 02:08 | PN ---
DATE: 05/01/2017 PSYCHIATRIC PROGRESS NOTE This late entry for 05/01/2017 covers the elements not covered in my initial note of 05/01/2017. I met with the patient in the evening of 05/01/2017. Overall, the patient is doing better. He is not masturbating publically, reportedly per nursing staff had a good night, good day. REVIEW OF SYSTEMS: Ambulation impaired, in a [place] chair. No CV, , pulmonary, eye, ENT system symptoms on review. Verbal response often monosyllabic. MENTAL STATUS EXAM: Oriented to himself. Insight, judgment, recent and remote memory, attention, concentration, fund of knowledge poor, consistent with his diagnosis mentioned in my initial note. PLAN: Continue psychotropics mentioned in my initial, Depakote, Luvox, BuSpar, Provera 10 mg a day, Seroquel. Reviewed drug interactions, risk/benefit ratio favors no further change. AYAKA FERNANDEZ MD DR: CAMERON/varun JOB#: [id number] / [id number]
[2017-05-03 05:52] VITALS: BP 126/64
[2017-05-03] MEDS: INSULIN ASPART 300 UNITS/3 ML INSULN.PEN SQ SCH ×4 (07:30→20:31)
[2017-05-03] MEDS: MULTIVITAMIN with MINERAL TABLET. PO SCH (08:09)
[2017-05-03] MEDS: medroxyPROGESTERone 5 MG TABLET PO SCH (08:09)
[2017-05-03] MEDS: CHOLECALCIFEROL (VITAMIN D3) 1,000 UNIT TABLET PO SCH (08:09)
[2017-05-03] MEDS: DOCUSATE SODIUM 100 MG CAPSULE PO SCH ×2 (08:11→20:20)
[2017-05-03] MEDS: levETIRAcetam 500 MG TABLET PO SCH ×2 (08:11→20:30)
[2017-05-03] MEDS: busPIRone 5 MG TABLET. PO SCH ×2 (08:11→20:30)
[2017-05-03] MEDS: POLYETHYLENE GLYCOL 3350 17 GM PACKET. PO SCH (08:11)
[2017-05-03] MEDS: PRIMIDONE 50 MG TABLET PO SCH ×2 (08:11→20:30)
[2017-05-03] MEDS: SENNOSIDES 8.6 MG TABLET PO SCH ×2 (08:11→20:30)
[2017-05-03] MEDS: PANTOPRAZOLE 40 MG TABLET. PO SCH (08:11)
[2017-05-03] MEDS: METOPROLOL TART IMMED RELEASE 25 MG TABLET PO SCH ×2 (08:11→20:29)
[2017-05-03] MEDS: FLUTICASONE 50MCG/NASAL SPRAY 16GM BOTTLE. NS SCH ×2 (08:12→20:36)
[2017-05-03 16:12] VITALS: BP 90/51
[2017-05-03] MEDS: DIVALPROEX ER 250 MG TAB.ER.24H. PO SCH (20:20)
[2017-05-03] MEDS: QUEtiapine 50 MG TABLET. PO SCH (20:31)
[2017-05-03] MEDS: INSULIN DETEMIR 300 UNITS/3 ML INSULN.PEN. SQ SCH (20:36)
--- NOTE | 2017-05-03 20:40 | PDOC ---
Exam Trey Demential Exam: Trey Note: Please also refer to the separate dictated note~for this date of service dictated separately.~Patient seen individually. Discussed the patient with Nursing staff reviewed the chart.~Reviewed interim history and current functioning. Reviewed vital signs,~Labs/ Radiology~and current medications noted below. Continue current treatment with the changes noted in the dictated addendum note Assessment: Vital Signs: Vital Signs Date Time Temp Pulse Resp B/P (MAP) Pulse Ox O2 Delivery O2 Flow Rate FiO2 05/03/17 20:29 80 101/63 05/03/17 16:12 97.4 20 96 05/01/17 16:02 Room Air I&O Intake and Output 05/04/17 06:59 Intake Total 1680 ml Balance 1680 ml Intake Oral 1680 ml Labs: Laboratory Tests Test 05/03/17 07:03 05/03/17 11:55 05/03/17 16:59 05/03/17 20:10 Glucose (Fingerstick) 94 mg/dL (70-99) 85 mg/dL (70-99) 104 mg/dL (70-99) H 119 mg/dL (70-99) H Current Medications: Meds: Current Medications Acetaminophen (Tylenol) 650 mg PRN Q6HRS PRN PO PAIN / TEMP; Start 04/19/17 at 12:30; Status Cancel Multi-Ingredient Ointment (Analgesic [place]) 1 fabrizio PRN QID PRN TP MUSCLE PAIN; Start 04/19/17 at 12:30; Status Cancel Al Hydroxide/Mg Hydroxide (Mylanta Plus Xs) 15 ml PRN AFTMEALHC PRN PO DYSPEPSIA; Start 04/19/17 at 12:30 Magnesium Hydroxide (Milk Of Magnesia) 2,400 mg PRN QHS PRN PO CONSTIPATION Last administered on 05/02/17 08:05; Start 04/19/17 at 12:30 Influenza Virus Vaccine Quadrival (Fluarix Quad [id number] Syringe) 0.5 ml ONCE ONCE VAX IM Last administered on 04/20/17 13:28; Start 04/20/17 at 09:00; Stop 04/20/17 at 09:01; Status DC Pneumococcal Polyvalent Vaccine (Pneumovax 23) 0.5 ml ONCE ONCE VAX IM Last administered on 04/20/17 13:29; Start 04/20/17 at 09:00; Stop 04/20/17 at 09:01 ; Status DC Buspirone HCl (Buspar) 5 mg BID PO Last administered on 05/03/17 20:30; Start 04/19/17 at 21:00 Divalproex Sodium (Depakote Er) 750 mg QHS PO Last administered on 05/03/17 20:20; Start 04/19/17 at 21:00 Fluvoxamine Maleate (Luvox) 100 mg QHS PO Last administered on 05/03/17 20:37 ; Start 04/19/17 at 21:00 Levetiracetam (Keppra) 1,000 mg BID PO Last administered on 05/03/17 20:30; Start 04/19/17 at 21:00 Olanzapine (ZyPREXA) 2.5 mg DAILY PO Last administered on 04/21/17 08:51; Start 04/20/17 at 09:00; Stop 04/21/17 at 18:33; Status DC Primidone (Mysoline) 150 mg BID PO Last administered on 05/03/17 20:30; Start 04/19/17 at 21:00 Insulin Aspart (NovoLOG) 0-5 UNITS QIDACHS SQ Last administered on 04/29/17 12:11; Start 04/19/17 at 16:30 Acetaminophen (Tylenol) 650 mg PRN Q6HRS PRN PO PAIN / TEMP Last administered on 04/28/17 07:17; Start 04/19/17 at 13:30 Vitamin D (Vitamin D3) 2,000 unit DAILY PO Last administered on 05/03/17 08: 09; Start 04/20/17 at 09:00 Docusate Sodium (Colace) 100 mg BID PO Last administered on 05/03/17 20:20; Start 04/19/17 at 21:00 Fluticasone Propionate (Flonase) 1 spray BID NS Last administered on 20:36; Start 04/19/17 at 21:00 Multi-Ingredient Ointment (Analgesic [place]) 1 fabrizio PRN QID PRN TP MUSCLE PAIN; Start 04/19/17 at 13:30 Metoprolol Tartrate (Lopressor) 25 mg BID PO Last administered on 04/23/17 07: 45; Start 04/19/17 at 21:00; Stop 04/24/17 at 14:03; Status DC Modafinil (Provigil) 100 mg QHS PO Last administered on 04/29/17 20:04; Start 04/19/17 at 21:00; Stop 04/30/17 at 19:09; Status DC Pantoprazole Sodium (Protonix) 40 mg DAILYAC PO Last administered on 08:11; Start 04/20/17 at 07:30 Sennosides (Senna) 8.6 mg BID PO Last administered on 05/03/17 20:30; Start 04/19/17 at 21:00 Insulin Detemir (Levemir) 3 units QHS SQ Last administered on 05/03/17 20:36 ; Start 04/19/17 at 21:00 Non-Formulary Medication 2,400 mg PRN QHS PRN PO CONSTIPATION; Start 04/19/17 at 13:30; Status UNV Multivitamins/ Calcium (Thera-M Plus) 1 tab DAILY PO Last administered on 05/03 08:09; Start 04/20/17 at 09:00 Polyethylene Glycol (miraLAX) 17 gm DAILY PO Last administered on 05/03/17 08 :11; Start 04/20/17 at 09:00 Quetiapine Fumarate (SEROquel) 50 mg QHS PO Last administered on 05/03/17 20: 31; Start 04/20/17 at 21:00 Medroxyprogesterone Acetate (Provera) 5 mg DAILY PO Last administered on 07:46; Start 04/22/17 at 09:00; Stop 04/25/17 at 18:26; Status DC Metoprolol Tartrate (Lopressor) 12.5 mg BID PO Last administered on 05/03/17 08:11; Start 04/24/17 at 21:00 Medroxyprogesterone Acetate (Provera) 7.5 mg DAILY PO Last administered on 08:10; Start 04/26/17 at 09:00; Stop 04/29/17 at 20:45; Status DC Medroxyprogesterone Acetate (Provera) 10 mg DAILY PO Last administered on 10/18 /17at 08:09; Start 04/30/17 at 09:00 Active Scripts Active Reported Miralax (Polyethylene Glycol 3350) 119 Gm Powder 17 Gm PO DAILY Milk Of Magnesia (Magnesium Hydroxide) 400 Mg/5 Ml Oral.susp 2,400 Mg PO PRN QHS PRN Depakote Er (Divalproex Sodium) 250 Mg Tab.er.24h 750 Mg PO QHS Fluvoxamine Maleate 100 Mg Tablet 100 Mg PO QHS Bupropion Xl (Bupropion Hcl) 150 Mg Tab.er.24h 150 Mg PO DAILY Protonix (Pantoprazole Sodium) 40 Mg Tablet.dr 40 Mg PO DAILYAC Analgesic [place] (Methyl Salicylate/Menthol) 28 Gm Oint...g. 1 Applic TP PRN QID PRN Advanced Antacid Liquid (Mag Hydrox/Al Hydrox/Simeth) 355 Ml Oral.susp 15 Ml PO PRN AFTMEALHC PRN Levemir (Insulin Detemir) 100 Unit/1 Ml Vial 3 Unit SQ QHS Tylenol (Acetaminophen) 325 Mg Tablet 650 Mg PO PRN Q6HRS PRN Zyprexa (Olanzapine) 2.5 Mg Tablet 2.5 Mg PO DAILY Senna (Sennosides) 8.6 Mg Tablet 8.6 Mg PO BID Primidone 50 Mg Tablet 150 Mg PO BID Multiple Vitamin (Multivitamin With Minerals) 1 Each Tablet 1 Tab PO DAILY Modafinil 100 Mg Tablet 100 Mg PO QHS Metoprolol Tartrate 25 Mg Tablet 25 Mg PO BID Levetiracetam 500 Mg Tablet 1,000 Mg PO BID Fluticasone Propionate Nasal [place] (Fluticasone Propionate) 16 Gm [place].susp 1 [place] NS BID Docusate Sodium 100 Mg Capsule 100 Mg PO BID Vitamin D3 (Cholecalciferol (Vitamin D3)) 1,000 Unit Tablet 2,000 Unit PO DAILY Buspirone Hcl 5 Mg Tablet 5 Mg PO BID Diagnosis: Problems: (1) Anxiety disorder (2) Impulse control disorder (3) Psychosis, atypical (4) Schizoaffective disorder (5) Bipolar affective disorder, mixed (6) Encounter for medical screening examination (7) Borderline intellectual disability AYAKA FERNANDEZ MD May 03, 2017 20:40
--- NOTE | 2017-05-03 23:32 | PN ---
DATE: 05/02/2017 PSYCHIATRIC PROGRESS NOTE This late entry date of service 05/02/2017 covers elements, not covered in my initial note of 05/02/2017. SUBJECTIVE: I met with the patient in the evening of 05/02/2017. The patient remains somewhat withdrawn, but has not been sexually inappropriate and not masturbating in front of others. REVIEW OF SYSTEMS: Ambulation impaired and in Broda chair. No CV, , pulmonary, eye, ENT system symptoms on review. Reliability poor. MENTAL STATUS EXAM: Oriented to himself and situation. Speech moderate latency, often responses monosyllabic. Abstraction fair, computation impaired, language function intact, attention span short. Mood and affect, lability is improved. LABORATORY DATA: Reviewed. IMPRESSION: Unchanged from initial note. PLAN: Continue current psychotropics mentioned in my initial note. Reviewed drug interactions. Risk/benefit ratio favors no further change. MAN Maria Antonia FERNANDEZ MD DR: CAMERON/varun JOB#: [id number] / [id number]
[2017-05-04] MEDS ORDERED: QUET50TA5 PO (01:36)
[2017-05-04] MEDS ORDERED: MEDR10TA PO (01:38)
[2017-05-04 06:13] VITALS: BP 122/60
[2017-05-04] MEDS: INSULIN ASPART 300 UNITS/3 ML INSULN.PEN SQ SCH ×2 (07:30→11:30)
[2017-05-04] MEDS: POLYETHYLENE GLYCOL 3350 17 GM PACKET. PO SCH (07:58)
[2017-05-04] MEDS: busPIRone 5 MG TABLET. PO SCH (07:58)
[2017-05-04] MEDS: MULTIVITAMIN with MINERAL TABLET. PO SCH (07:59)
[2017-05-04] MEDS: levETIRAcetam 500 MG TABLET PO SCH (07:59)
[2017-05-04] MEDS: medroxyPROGESTERone 5 MG TABLET PO SCH (07:59)
[2017-05-04] MEDS: DOCUSATE SODIUM 100 MG CAPSULE PO SCH (07:59)
[2017-05-04] MEDS: CHOLECALCIFEROL (VITAMIN D3) 1,000 UNIT TABLET PO SCH (07:59)
[2017-05-04] MEDS: PANTOPRAZOLE 40 MG TABLET. PO SCH (07:59)
[2017-05-04] MEDS: PRIMIDONE 50 MG TABLET PO SCH (07:59)
[2017-05-04] MEDS: SENNOSIDES 8.6 MG TABLET PO SCH (07:59)
[2017-05-04 08:05] VITALS: BP 122/60
[2017-05-04] MEDS: FLUTICASONE 50MCG/NASAL SPRAY 16GM BOTTLE. NS SCH (08:05)
[2017-05-04] MEDS: METOPROLOL TART IMMED RELEASE 25 MG TABLET PO SCH (08:05)
[2017-05-04] MEDS ORDERED: INSU100I17 SQ (11:20)
--- NOTE | 2017-05-04 18:30 | PDOC ---
Exam Trey Demential Exam: Trey Note: Please also refer to the separate dictated note~for this date of service dictated separately.~Patient seen individually. Discussed the patient with Nursing staff reviewed the chart.~Reviewed interim history and current functioning. Reviewed vital signs,~Labs/ Radiology~and current medications noted below. Continue current treatment with the changes noted in the dictated addendum note Assessment: Vital Signs: Vital Signs Date Time Temp Pulse Resp B/P (MAP) Pulse Ox O2 Delivery O2 Flow Rate FiO2 05/04/17 08:05 77 122/60 05/04/17 06:13 98.4 18 97 05/01/17 16:02 Room Air I&O Intake and Output 05/05/17 07:00 Intake Total 100 ml Balance 100 ml Intake Oral 100 ml Labs: Laboratory Tests Test 05/03/17 20:10 05/04/17 07:04 05/04/17 11:51 Glucose (Fingerstick) 119 mg/dL (70-99) H 109 mg/dL (70-99) H 90 mg/dL (70-99) Current Medications: Meds: Current Medications Acetaminophen (Tylenol) 650 mg PRN Q6HRS PRN PO PAIN / TEMP; Start 04/19/17 at 12:30; Status Cancel Multi-Ingredient Ointment (Analgesic [place]) 1 fabrizio PRN QID PRN TP MUSCLE PAIN; Start 04/19/17 at 12:30; Status Cancel Al Hydroxide/Mg Hydroxide (Mylanta Plus Xs) 15 ml PRN AFTMEALHC PRN PO DYSPEPSIA; Start 04/19/17 at 12:30; Stop 05/04/17 at 12:57; Status DC Magnesium Hydroxide (Milk Of Magnesia) 2,400 mg PRN QHS PRN PO CONSTIPATION Last administered on 05/02/17 08:05; Start 04/19/17 at 12:30; Stop 05/04/17 at 12:57; Status DC Influenza Virus Vaccine Quadrival (Fluarix Quad [id number] Syringe) 0.5 ml ONCE ONCE VAX IM Last administered on 04/20/17 13:28; Start 04/20/17 at 09:00; Stop 04/20/17 at 09:01; Status DC Pneumococcal Polyvalent Vaccine (Pneumovax 23) 0.5 ml ONCE ONCE VAX IM Last administered on 04/20/17 13:29; Start 04/20/17 at 09:00; Stop 04/20/17 at 09:01 ; Status DC Buspirone HCl (Buspar) 5 mg BID PO Last administered on 05/04/17 07:58; Start 04/19/17 at 21:00; Stop 05/04/17 at 12:57; Status DC Divalproex Sodium (Depakote Er) 750 mg QHS PO Last administered on 05/03/17 20:20; Start 04/19/17 at 21:00; Stop 05/04/17 at 12:57; Status DC Fluvoxamine Maleate (Luvox) 100 mg QHS PO Last administered on 05/03/17 20:37 ; Start 04/19/17 at 21:00; Stop 05/04/17 at 12:57; Status DC Levetiracetam (Keppra) 1,000 mg BID PO Last administered on 05/04/17 07:59; Start 04/19/17 at 21:00; Stop 05/04/17 at 12:57; Status DC Olanzapine (ZyPREXA) 2.5 mg DAILY PO Last administered on 04/21/17 08:51; Start 04/20/17 at 09:00; Stop 04/21/17 at 18:33; Status DC Primidone (Mysoline) 150 mg BID PO Last administered on 05/04/17 07:59; Start 04/19/17 at 21:00; Stop 05/04/17 at 12:57; Status DC Insulin Aspart (NovoLOG) 0-5 UNITS QIDACHS SQ Last administered on 04/29/17 12:11; Start 04/19/17 at 16:30; Stop 05/04/17 at 12:57; Status DC Acetaminophen (Tylenol) 650 mg PRN Q6HRS PRN PO PAIN / TEMP Last administered on 04/28/17 07:17; Start 04/19/17 at 13:30; Stop 05/04/17 at 12:57; Status DC Vitamin D (Vitamin D3) 2,000 unit DAILY PO Last administered on 05/04/17 07: 59; Start 04/20/17 at 09:00; Stop 05/04/17 at 12:57; Status DC Docusate Sodium (Colace) 100 mg BID PO Last administered on 05/04/17 07:59; Start 04/19/17 at 21:00; Stop 05/04/17 at 12:57; Status DC Fluticasone Propionate (Flonase) 1 spray BID NS Last administered on 08:05; Start 04/19/17 at 21:00; Stop 05/04/17 at 12:57; Status DC Multi-Ingredient Ointment (Analgesic [place]) 1 fabrizio PRN QID PRN TP MUSCLE PAIN; Start 04/19/17 at 13:30; Stop 05/04/17 at 12:57; Status DC Metoprolol Tartrate (Lopressor) 25 mg BID PO Last administered on 04/23/17 07: 45; Start 04/19/17 at 21:00; Stop 04/24/17 at 14:03; Status DC Modafinil (Provigil) 100 mg QHS PO Last administered on 04/29/17 20:04; Start 04/19/17 at 21:00; Stop 04/30/17 at 19:09; Status DC Pantoprazole Sodium (Protonix) 40 mg DAILYAC PO Last administered on 07:59; Start 04/20/17 at 07:30; Stop 05/04/17 at 12:57; Status DC Sennosides (Senna) 8.6 mg BID PO Last administered on 05/04/17 07:59; Start 04/19/17 at 21:00; Stop 05/04/17 at 12:57; Status DC Insulin Detemir (Levemir) 3 units QHS SQ Last administered on 05/03/17 20:36 ; Start 04/19/17 at 21:00; Stop 05/04/17 at 12:57; Status DC Non-Formulary Medication 2,400 mg PRN QHS PRN PO CONSTIPATION; Start 04/19/17 at 13:30; Status UNV Multivitamins/ Calcium (Thera-M Plus) 1 tab DAILY PO Last administered on 05/04 07:59; Start 04/20/17 at 09:00; Stop 05/04/17 at 12:57; Status DC Polyethylene Glycol (miraLAX) 17 gm DAILY PO Last administered on 05/04/17 07 :58; Start 04/20/17 at 09:00; Stop 05/04/17 at 12:57; Status DC Quetiapine Fumarate (SEROquel) 50 mg QHS PO Last administered on 05/03/17 20: 31; Start 04/20/17 at 21:00; Stop 05/04/17 at 12:57; Status DC Medroxyprogesterone Acetate (Provera) 5 mg DAILY PO Last administered on 07:46; Start 04/22/17 at 09:00; Stop 04/25/17 at 18:26; Status DC Metoprolol Tartrate (Lopressor) 12.5 mg BID PO Last administered on 05/04/17 08:05; Start 04/24/17 at 21:00; Stop 05/04/17 at 12:57; Status DC Medroxyprogesterone Acetate (Provera) 7.5 mg DAILY PO Last administered on 08:10; Start 04/26/17 at 09:00; Stop 04/29/17 at 20:45; Status DC Medroxyprogesterone Acetate (Provera) 10 mg DAILY PO Last administered on 05/04 07:59; Start 04/30/17 at 09:00; Stop 05/04/17 at 12:57; Status DC Active Scripts Active Reported Novolog Flexpen (Insulin Aspart) 100 Unit/1 Ml Insuln.pen 1 Unit SQ QIDACHS <70 follow hypoglycemic protocol 70-150 0 units if eating 0 units if not eating or HS 151-200 2 0 201-250 3 0 251-300 4 2 301-350 5 3 >350 call provider Provera (Medroxyprogesterone Acetate) 10 Mg Tablet 10 Mg PO DAILY Seroquel (Quetiapine Fumarate) 50 Mg Tablet 50 Mg PO HS Miralax (Polyethylene Glycol 3350) 119 Gm Powder 17 Gm PO DAILY Milk Of Magnesia (Magnesium Hydroxide) 400 Mg/5 Ml Oral.susp 2,400 Mg PO PRN QHS PRN Depakote Er (Divalproex Sodium) 250 Mg Tab.er.24h 750 Mg PO QHS Fluvoxamine Maleate 100 Mg Tablet 100 Mg PO QHS Protonix (Pantoprazole Sodium) 40 Mg Tablet.dr 40 Mg PO DAILYAC Analgesic [place] (Methyl Salicylate/Menthol) 28 Gm Oint...g. 1 Applic TP PRN QID PRN Advanced Antacid Liquid (Mag Hydrox/Al Hydrox/Simeth) 355 Ml Oral.susp 15 Ml PO PRN AFTMEALHC PRN Levemir (Insulin Detemir) 100 Unit/1 Ml Vial 2 Unit SQ QHS Tylenol (Acetaminophen) 325 Mg Tablet 650 Mg PO PRN Q6HRS PRN Senna (Sennosides) 8.6 Mg Tablet 8.6 Mg PO BID Primidone 50 Mg Tablet 150 Mg PO BID Multiple Vitamin (Multivitamin With Minerals) 1 Each Tablet 1 Tab PO DAILY Metoprolol Tartrate 25 Mg Tablet 12.5 Mg PO BID Levetiracetam 500 Mg Tablet 1,000 Mg PO BID Fluticasone Propionate Nasal [place] (Fluticasone Propionate) 16 Gm [place].susp 1 [place] NS BID Docusate Sodium 100 Mg Capsule 100 Mg PO BID Vitamin D3 (Cholecalciferol (Vitamin D3)) 1,000 Unit Tablet 2,000 Unit PO DAILY Buspirone Hcl 5 Mg Tablet 5 Mg PO BID Diagnosis: Problems: (1) Borderline intellectual disability (2) Bipolar affective disorder, mixed (3) Schizoaffective disorder (4) Psychosis, atypical (5) Impulse control disorder (6) Anxiety disorder AYAKA FERNANDEZ MD May 04, 2017 18:30
--- NOTE | 2017-05-05 03:24 | PN ---
DATE: 05/03/2017 PSYCHIATRIC PROGRESS NOTE This is a late entry for 05/03/2017, covers the elements not covered in my initial note of 05/03/2017. SUBJECTIVE: I met with the patient evening of 05/03/2017. Overall, the patient is doing better. He has not been sexually inappropriate, does redirect, has not been masturbating in the public. REVIEW OF SYSTEMS: Ambulation impaired. No CV, , pulmonary, eye, ENT system symptoms on review. Reliability poor. MENTAL STATUS EXAM: Oriented to himself. Insight, judgment, recent and remote memory, attention, concentration, fund of knowledge poor, consistent with his diagnosis mentioned in my initial note. PLAN: Continue current psychotropics. Possible transition back to care home end of this week. Reviewed drug interactions. Risk/benefit ratio favors no further change. MAN Maria Antonia FERNANDEZ MD DR: CAMERON/varun JOB#: [id number] / [id number]
--- NOTE | 2017-05-05 18:57 | DS ---
DATE OF DISCHARGE: 05/04/2017 DISCHARGE SUMMARY/PSYCHIATRIC PROGRESS NOTE This late entry 05/04/2017 covers elements not covered in my initial note of 05/04/2017. REASON FOR ADMISSION: Please refer to the admission history for details. Briefly, the patient is a 71-year-old male referred back to us from [facility] primary care physician on account of worsening behaviors unmanageable, dangerous in the jail. He was masturbating in front of people, would become agitated when redirected, urinating on staff, aggressive, disruptive. Outpatient psychiatric interventions had failed resulting in this referral. SIGNIFICANT FINDINGS AND CLINICAL COURSE: Following admission, the patient was seen daily individually by myself, followed medically per Dr. Kamara/Dr. Vee. The patient was quite labile, sexually inappropriate, aggressive on the unit. He was started on Provera and this was gradually increased to 10 mg a day. He remained on Depakote ER 750 mg at bedtime, level was 27 for the valproic acid and seemed to respond additionally to Luvox 100 mg at bedtime, BuSpar 5 mg twice a day, Seroquel 50 mg p.o. at bedtime. Mood appeared to stabilize. He would still occasionally masturbate, but only in his room, even that seemed to have reduced significantly. REVIEW OF SYSTEMS: Prior to discharge, 05/04/2017 ambulation impaired, in a wheelchair. No CV, , pulmonary, eye, ENT system symptoms on review. Reliability poor. MENTAL STATUS EXAM: Oriented to himself. Insight, judgment, recent and remote memory, attention, concentration, fund of knowledge poor, consistent with his diagnosis. CONDITION AT DISCHARGE: Improved. FINAL DIAGNOSES: Bipolar 1 disorder, mixed with psychotic features, in partial remission, intellectual disability; major neurocognitive disorder, early Alzheimer, vascular with delusions; anxiety disorder, unspecified. Rest diagnosis unchanged from admission DISCHARGE MEDICATIONS: Please refer to the MRAD. DISCHARGE INSTRUCTIONS: Outpatient psychiatric and medical followup at the jail. Time for discharge day management greater than 30 minutes. MAN Maria Antonia FERNANDEZ MD DR: CAMERON/varun JOB#: [id number] / [id number]
== END 2017-05-04 12:57 | DRG 885 ==
LOC: ER 09:52 → GEROPSY 11:53
PROVIDERS: ADMIT Psychiatry & Neurology Psychiatry; ATTEND Psychiatry & Neurology Psychiatry
DX: F31.64 Bipolar disorder, current episode mixed, severe, with psychotic features (principal); G20 Parkinson's disease; G30.9 Alzheimer's disease, unspecified; E66.01 Morbid (severe) obesity due to excess calories; F02.80 Dementia in other diseases classified elsewhere, unspecified severity, without behavioral disturbance, psychotic disturbance, mood disturbance, and anxiety; F01.50 Vascular dementia, unspecified severity, without behavioral disturbance, psychotic disturbance, mood disturbance, and anxiety; E11.9 Type 2 diabetes mellitus without complications; F41.9 Anxiety disorder, unspecified; F42.9 Obsessive-compulsive disorder, unspecified; F63.9 Impulse disorder, unspecified; F70 Mild intellectual disabilities; K21.9 Gastro-esophageal reflux disease without esophagitis; Z66 Do not resuscitate; Z79.899 Other long term (current) drug therapy; Z68.34 Body mass index [BMI] 34.0-34.9, adult; M19.90 Unspecified osteoarthritis, unspecified site; R29.6 Repeated falls; I10 Essential (primary) hypertension; Z88.1 Allergy status to other antibiotic agents; Z88.8 Allergy status to other drugs, medicaments and biological substances
CPT/HCPCS: 36415; 80048; 80053; 80061; 80164; 81001; 82306; 82607; 82947; 83036; 83540; 83550; 83735; 84436; 84443; 84480; 85025; 87086; 90686; 90732; 93005; J1815; 99285-25